=== PATIENT | female | born 1940 | race Caucasian/White ===

== ENCOUNTER → 2016-09-15 | Outpatient (CLI) | payer MEDICARE ==
[~2016-09-15] MED LIST: /LOR25TA PO; ALEN35TA PO; AMLO2.5T PO; ASPI81TA83 PO; BENI20TA11 PO; CALCCHW12 PO; CALTCHW4 PO; CRES5TAB PO; DOXA2TAB PO; DYAZ37.5 PO; FERR325T PO; FISH1000 PO; FLAXOIL3 PO; FURO20TA2 PO; GLIM1TAB PO; GLUC1000 PO; HYDR10TA2 PO; HYDR50TA7 OR; INVO100T PO; KLOR10TA PO; LASI20TA OR; LISI2.5T3 PO; LOPR100T PO; MAGN250T OR; NORT10CA2 PO; OMEP20TA7 PO; PAXI10TA PO; PRAV20TA2 PO; PROBCAP4 PO; SING10TA31 OR; TIZA2CAP3 PO; ULTR50TA PO; VICT18IN SC; VIT D 4000 PO; VITA400C PO; VITA500C PO; VITA500T53 PO; tribenzor PO
--- NOTE | 2016-09-24 00:26 | ECWPNPC ---
PATIENT NAME: ADELAIDA ATWOOD : 1940 GENDER: FEMALE VISIT DATE: 09/15/2016 DISCHARGE DATE: 09/15/16 1054 VISIT LOCKED DATE TIME: PHYSICIAN: ARTHUR LEVY RESOURCE: ARTHUR LEVY REASON FOR APPOINTMENT 1. LOWER BACK HISTORY OF PRESENT ILLNESS HISTORY OF PRESENT ILLNESS: PAIN THE PATIENT DESCRIBES THE PAIN... FALL RISK SCREENING: SCREENING :NO FALLS IN THE PAST YEAR TODAY'S VISIT: NOTES: RATES PAIN TODAY 5-6/10. NOTES PAIN IS CENTERED IN LOW BACK WITH RADIATION TO BOTH BUTTUCKS AND TO MID THIGHS. DID NOT TOLERATE DICLOFENAC AND WENT BACK TO MELOXICAM. COMPLETED UPDATED MRI OF LUMBAR SPINE.PAIN RADIATES TO HIPS WITH MOVEMENT. HARD TO GET STARTED WHEN WALKING. HARD TO STAND FOR PROLONGED PERIOD. . CURRENT MEDICATIONS TAKING GLIMEPIRIDE 4 MG TABLET ORAL BID TAKING METOPROLOL TARTRATE 100 MG SEMI-ELECTRIC WITH ORAL BID TAKING VICTOZA 18 MG/3ML SOLUTION PEN-INJECTOR 1.8 SUBCUTANEOUS DAILY TAKING TRIBENZOR 40-10-25 MG TABLET ORAL DAILY TAKING PRAVASTATIN SODIUM 40 MG TABLET ORAL DAILY TAKING FUROSEMIDE 20 MG TABLET ORAL DAILY TAKING NORTRIPTYLINE HCL 10 MG CAPSULE ORAL AT BEDTIME TAKING HYDRALAZINE HCL 10 MG TABLET ORAL DAILY TAKING METFORMIN HCL 1000 MG TABLET BREAKFAST AND DINNER ORALLY BID TAKING POTASSIUM CHLORIDE ER 10 MEQ TABLET EXTENDED RELEASE ORAL TWICE A DAY TAKING CALTRATE 600+D SOFT 600-800 MG-UNIT TABLET CHEWABLE ORALLY BID TAKING VITAMIN C 500 MG CAPSULE ORALLY DAILY TAKING VITAMIN B 12 500 MCG LOZENGE 2 LOZENGES ORALLY ONCE A DAY TAKING VITAMIN D-3 2000 CAPSULE 2 CAPSULE ORALLY TWICE DAILY TAKING FLAX SEEDS 500 MG ORALLY BID TAKING VITAMIN E 400 UNIT CAPSULE 1 CAPSULE ORALLY ONCE A DAY TAKING ASPIR-81 81 MG TABLET DELAYED RELEASE 1 TABLET ORALLY ONCE A DAY TAKING ALENDRONATE SODIUM 35 MG TABLET 1 TABLET ORALLY MONDAY ONLY TAKING PAROXETINE HCL 10 MG TABLET 1 TABLET IN THE MORNING ORALLY ONCE A DAY TAKING VISION FORMULA/LUTEIN TABLET ORALLY TWICE DAILY TAKING TRAMADOL HCL 50 MG TABLET 1 TABLET NEEDED ORALLY EVERY 6 HRS PRN PAIN MDD=3 TAKING PRILOSEC 20MG 20MG TABLET ORAL TWICE DAILY TAKING FISH OIL 1200 MG CAPSULE 1 CAPSULE ORALLY ONCE A DAY TAKING BACLOFEN 10 MG TABLET 1/2 -1 TABLET ORALLY 3X/DAY NEEDED TAKING MELOXICAM 7.5 MG TABLET 1 TABLET ORALLY ONCE A DAY NOT-TAKING DICLOFENAC SODIUM 50 MG TABLET DELAYED RELEASE 1 TABLET WITH FOOD OR MILK ORALLY BID WITH FOOD NOT-TAKING FLUTICASONE PROPIONATE 50 MCG/ACT SUSPENSION NASAL NEEDED, NOTES: 2 WEEKS MEDICATION LIST REVIEWED AND RECONCILED WITH THE PATIENT PAST MEDICAL HISTORY BRONCHIATUS HTN 2 CARDIAC CATHS PNEUMONIA HOME CPAP USE GERD CATARACT SURGURY BOTH EYES ANEMIA DIABETES DIVERTICULITIS ALLERGIES PENICILLIN (FOR ALLERGIES USE ONLY): RASH SULFA (FOR ALLERGY USE ONLY): HOT RASH LATEX: ITCH IVP DYE: FROM YEARS AGO /GAVE RASH ERYTHROMYCIN: RASH LISINOPRIL: COUGH: SIDE EFFECTS SOCIAL HISTORY GENERAL: TOBACCO USE ARE YOU A:NONSMOKER LEARNING BARRIERS / SPECIAL NEEDS ORIENTED TO PLAN OF CARE: PATIENT, PAIN MANAGEMENT PATIENT, ORIENTED TO PLAN OF CARE: PATIENT, PAIN MANAGEMENT PATIENT. NEW PATIENT PAIN DIARY TODAY'S VISITNOTES FROM 0-10, WHAT LEVEL IS YOUR PAIN TODAY?0 PAIN CLINIC PFS, CLERGY, PUBLIC HEALTH REFERRALS PFS REFERRAL NEEDED?NO CLERGY REFERRAL NEEDED?NO PUBLIC HEALTH REFERRAL NEEDED?NO WAS THE PROVIDER NOTIFIED OF ANY PERTINENT INFO?NO PFS REFERRAL NEEDED?NO CLERGY REFERRAL NEEDED?NO PUBLIC HEALTH REFERRAL NEEDED?NO WAS THE PROVIDER NOTIFIED OF ANY PERTINENT INFO?NO REVIEW OF SYSTEMS CONSTITUTIONAL: ANY CHANGE IN YOUR MEDICAL CONDITION? NO . CHILLS NO . FEVER NO . INFECTION: DO YOU HAVE NEW INFECTIONS? NO . DO YOU HAVE HISTORY OF MRSA? NO . MUSCULOSKELETAL: ANY NEW PATTERNS OF PAIN OR NUMBNESS? NO . GASTROENTEROLOGY: ANY NEW CHANGE IN BOWEL CONTROL? NO . ACID REFLUX YES - ON MEDS . GENITOURINARY: ANY NEW CHANGE IN BLADDER CONTROL? NO . IS THERE A CHANCE YOU COULD BE ? NO . HEMATOLOGY/LYMPH: DO YOU TAKE ANY BLOOD THINNERS? (FOR EXAMPLE- COUMADIN, PLAVIX, AGGRENOX, PLATEL, PRADAXA, OR XARELTO) NO . WHEN WAS YOUR LAST DOSE? DATE: TIME: . NEUROLOGY: HAVE YOU FALLEN IN THE PAST 6 MONTHS? NO . ANY NEW EXTREMITY NUMBNESS OR WEAKNESS? NO . CARDIOLOGY: DO YOU HAVE A PACEMAKER OR DEFIBRILLATOR? NO . RESPIRATORY: HAVE YOU BEEN SICK IN THE PAST WEEK? NO . FEVER NO . FLU LIKE SYMPTOMS? NO . COUGH NO . INTEGUMENTARY: DO YOU HAVE ANY RASHES OR OPEN SORES? NO . ALLERGIC/IMMUNO: ARE YOU ALLERGIC TO SHELLFISH OR IV DYE? NO . ANY NEW ALLERGIES? NO . PSYCHIATRIC: DO YOU HAVE THOUGHTS OF HURTING YOURSELF OR SOMEONE ELSE? NO . ARE YOU ABUSED, NEGLECTED, OR IN AN UNSAFE ENVIRONMENT? NO . ENDOCRINOLOGY: ARE YOU DIABETIC? YES - BLOOD SUGARS STABLE . OTHER: DO YOU NEED ANY PRESCRIPTIONS? NO . IF YES, PLEASE LIST: ____ . ANY NEW PROBLEMS WITH YOUR MEDICATIONS? NO . WHEN DID YOU LAST EAT? ____ . WHEN DID YOU LAST DRINK? ____ . WHAT DID YOU LAST DRINK? ____ . NAME OF PERSON DRIVING YOU HOME? ____ . DO YOU HAVE ANY OTHER QUESTIONS OR CONCERNS NO . REVIEWED BY: PROVIDER: ARTHUR ROMERO . VITAL SIGNS WT 179 LBS, HT 60 IN, BMI 34.95 INDEX, BP 155/86 MM HG, HR 94 /MIN, RR 16 /MIN, TEMP 98.7 F, OXYGEN SAT % 97%, NA INITIALS SC 10:14. EXAMINATION GENERAL EXAMINATION: PSYCHALERT , ORIENTED X 3 , APPROPRIATE MOOD AND AFFECT . LUNGS:CLEAR TO AUSCULTATION BILATERALLY. HEART:HEART RATE REGULAR. MUSCULOSKELETAL:MUSCLE STRENGTH TESTING 5/5 BILATERAL LOWER EXTREMITIES., PALPATION: POSITIVE FOR PAIN OVER L/S SPINOUS PROCESSES AND ACROSS THE LUMBOSACRAL EXIS. TENERNESS IS NOTED WITH PALPATION OVER LUMBAR PARAVERTEBRAL MUSCLES AND LUMBAR FACET JOINTS. PAIN INCREASES WITH BACK EXTENSION. WE'LL TO RISE TO A STANDING POSITION. POSTURE IS UPRIGHT GAIT IS WIDE-BASED BUT NONANTALGIC. . DIAGNOSTIC TESTS REVIEWEDMRI OF THE LUMBAR SPINE WAS COMPLETED ON 08/30/2016. WAS COMPARED TO AN MRI OF THE SAME AREA COMPLETED ON 01/07/2016. THIS DID DEMONSTRATE DEGENERATIVE SPONDYLOSIS CHANGES. FINDINGS WERE UNCHANGED EXCEPT AT L4-5 ON THE RIGHT WITH THERE APPEARS TO BE MORE FACET HYPERTROPHY INDENTING THE RIGHT THECAL LATERAL MARGIN OF THE THECAL SAC. THERE IS MILD DIFFUSE DISC BULGES SEEN AT THIS LEVEL. THERE IS MILD CENTRAL CANAL STENOSIS AT L4-5.. ASSESSMENTS SACROILIITIS, NOT ELSEWHERE CLASSIFIED - M46.1 (PRIMARY) MYALGIA - M79.1 (PRIMARY) SPONDYLOSIS OF LUMBOSACRAL REGION WITHOUT MYELOPATHY OR RADICULOPATHY - M47.817 (PRIMARY) TREATMENT SACROILIITIS, NOT ELSEWHERE CLASSIFIED INJECTION FACET JOINT/NERVE LUMBAR/SACRALARTHUR LEVY 09/15/2016 10:40:47 AM > BILATERAL THERAPEUTIC NOTES: HOLD DIABETES MEDS AM OF PROCEDURE, FALLS CARE PLAN: 1. RECOMMEND REMOVING ALL THROW RUGS. 2. RECOMMEND NIGHT LIGHTS 3. RECOMMEND WEARING RUBBER SOLED SHOES AND TO NOT GO BAREFOOT. 4.. ADVISED TO CHANGE POSITION SLOWLY FROM SUPINE TO STANDING TO AVOID DIZZINESS. [facility] REASON:INCREASING LOW BACK PAIN. HAS NEW MRI PROCEDURE CODES FA211 ESTABILISHED PATIENT [facility] FACILITY CHARGE G8783 BP SCR PRFRM RCMDD DEFIND SCR INTVL G8730 PAIN ASSESS POS TOOL F/U PLAN DOC 3016F PT SCRND UNHLTHY [place] USE 1123F ACP DISCUSS/DSCN MKR DOCD 1036F TOBACCO NON-USER 0518F FALL PLAN OF CARE DOCD G8420 BMI<30 AND >=22 CALC & DOCU 3288F FALL RISK ASSESSMENT DOCD FOLLOW UP AFTER INJECTION (REASON: CHECK AUTH FOR MARI THERAPEUTIC LUMBAR FACETS) ELECTRONICALLY SIGNED BY EUSEBIO CARROLL ON 09/23/2016 AT 10:54 AM EST DISCLAIMER : THIS IS A VISIT SUMMARY EXTRACTED FROM THE [employer] CHART. IT IS NOT A COPY OF THE [employer] PROGRESS NOTE. MARLINE
== END ==
LOC: M PAIN 10:20
PROVIDERS: ATTEND Nurse Practitioner Family
DX: Z09 Encounter for follow-up examination after completed treatment for conditions other than malignant neoplasm (principal); M46.1 Sacroiliitis, not elsewhere classified; M79.1 Myalgia; M47.817 Spondylosis without myelopathy or radiculopathy, lumbosacral region; I10 Essential (primary) hypertension; K21.9 Gastro-esophageal reflux disease without esophagitis; E11.9 Type 2 diabetes mellitus without complications; D64.9 Anemia, unspecified; Z88.0 Allergy status to penicillin; Z88.2 Allergy status to sulfonamides; Z91.040 Latex allergy status; Z88.8 Allergy status to other drugs, medicaments and biological substances; Z79.84 Long term (current) use of oral hypoglycemic drugs; Z79.82 Long term (current) use of aspirin; Z79.891 Long term (current) use of opiate analgesic; Z79.899 Other long term (current) drug therapy; Z98.41 Cataract extraction status, right eye; Z98.42 Cataract extraction status, left eye; Z86.79 Personal history of other diseases of the circulatory system

== ENCOUNTER → 2017-04-24 | Outpatient (CLI) | payer MEDICARE ==
--- NOTE | 2017-05-07 23:22 | ECWPNPC ---
PATIENT NAME: ADELAIDA ATWOOD : 1940 GENDER: FEMALE VISIT DATE: 04/24/2017 DISCHARGE DATE: 04/24/17 1105 VISIT LOCKED DATE TIME: PHYSICIAN: ARTHUR LEVY RESOURCE: ARTHUR LEVY REASON FOR APPOINTMENT 1. F/U BACK PAIN HISTORY OF PRESENT ILLNESS HISTORY OF PRESENT ILLNESS: PAIN THE PATIENT DESCRIBES THE PAIN... FALL RISK SCREENING: SCREENING :NO FALLS IN THE PAST YEAR TODAY'S VISIT: NOTES: FIRST CLINIC VISIT SINCE SEP 2015. HAS BEEN SEEN AT [facility] AND THEN [facility] WHO STARTED HER WITH A SHOE LIFT WHICH SHE HAS FOUND HELPFUL. RATES PAIN TODAY 5-6/10. DESCRIBES PAIN CONSTANT, BURNING, SHARP AND TENDER. HAD RECENT PELVIC MRI AND WE ARE OBTAINING THE RESULTS. NOTES PAIN IS ACROSS THE LOW BACK WITH RADIATION TO RIGHT BUTTUCK AND HIP REGION. PAIN INCREASES WITH PROLONGED SITTING. IS CURRENTLY IN PHYSICAL THERAPY. THEY ARE WORKING ON PIRIFORMIS STRETCHES. WAS ON A PREDNISONE TAPER. NOW HAS 09/07&QUOT; LIFT IN LEFT SHOE. . CURRENT MEDICATIONS TAKING GLIMEPIRIDE 4 MG TABLET ORAL BID TAKING METOPROLOL TARTRATE 100 MG SEMI-ELECTRIC WITH ORAL BID TAKING VICTOZA 18 MG/3ML SOLUTION PEN-INJECTOR 1.8 SUBCUTANEOUS DAILY TAKING TRIBENZOR 40-10-25 MG TABLET ORAL DAILY TAKING PRAVASTATIN SODIUM 40 MG TABLET ORAL DAILY TAKING FUROSEMIDE 20 MG TABLET ORAL DAILY TAKING NORTRIPTYLINE HCL 10 MG CAPSULE ORAL AT BEDTIME TAKING HYDRALAZINE HCL 10 MG TABLET ORAL DAILY TAKING METFORMIN HCL 1000 MG TABLET BREAKFAST AND DINNER ORALLY BID TAKING POTASSIUM CHLORIDE ER 10 MEQ TABLET EXTENDED RELEASE ORAL TWICE A DAY TAKING CALTRATE 600+D SOFT 600-800 MG-UNIT TABLET CHEWABLE ORALLY BID TAKING VITAMIN C 500 MG CAPSULE ORALLY DAILY TAKING VITAMIN B 12 500 MCG LOZENGE 2 LOZENGES ORALLY ONCE A DAY TAKING VITAMIN D-3 2000 CAPSULE 2 CAPSULE ORALLY TWICE DAILY TAKING FLAX SEEDS 500 MG ORALLY BID TAKING VITAMIN E 400 UNIT CAPSULE 1 CAPSULE ORALLY ONCE A DAY TAKING ASPIR-81 81 MG TABLET DELAYED RELEASE 1 TABLET ORALLY ONCE A DAY TAKING ALENDRONATE SODIUM 35 MG TABLET 1 TABLET ORALLY MONDAY ONLY TAKING PAROXETINE HCL 10 MG TABLET 1 TABLET IN THE MORNING ORALLY ONCE A DAY TAKING VISION FORMULA/LUTEIN TABLET ORALLY TWICE DAILY TAKING TRAMADOL HCL 50 MG TABLET 1 TABLET NEEDED ORALLY EVERY 6 HRS PRN PAIN MDD=3 TAKING PRILOSEC 20MG 20MG TABLET ORAL TWICE DAILY TAKING FISH OIL 1200 MG CAPSULE 1 CAPSULE ORALLY ONCE A DAY TAKING BACLOFEN 10 MG TABLET 1/2 -1 TABLET ORALLY 3X/DAY NEEDED TAKING MELOXICAM 7.5 MG TABLET 1 TABLET ORALLY ONCE A DAY NOT-TAKING DICLOFENAC SODIUM 50 MG TABLET DELAYED RELEASE 1 TABLET WITH FOOD OR MILK ORALLY BID WITH FOOD NOT-TAKING FLUTICASONE PROPIONATE 50 MCG/ACT SUSPENSION NASAL NEEDED, NOTES: 2 WEEKS MEDICATION LIST REVIEWED AND RECONCILED WITH THE PATIENT PAST MEDICAL HISTORY BRONCHIATUS HTN 2 CARDIAC CATHS PNEUMONIA HOME CPAP USE GERD CATARACT SURGURY BOTH EYES ANEMIA DIABETES DIVERTICULITIS ALLERGIES PENICILLIN (FOR ALLERGIES USE ONLY): RASH SULFA (FOR ALLERGY USE ONLY): HOT RASH LATEX: ITCH IVP DYE: FROM YEARS AGO /GAVE RASH ERYTHROMYCIN: RASH LISINOPRIL: COUGH: SIDE EFFECTS REVIEW OF SYSTEMS REVIEWED BY: PROVIDER: ARTHUR ROMERO . CONSTITUTIONAL: ANY CHANGE IN YOUR MEDICAL CONDITION? ORTHOPEDIC PUT LIFT IN SHOE AND HAS HER DOING THERAPY . CHILLS NO . FEVER NO . INFECTION: DO YOU HAVE NEW INFECTIONS? NO . DO YOU HAVE HISTORY OF MRSA? NO . MUSCULOSKELETAL: ANY NEW PATTERNS OF PAIN OR NUMBNESS? NO . GASTROENTEROLOGY: ANY NEW CHANGE IN BOWEL CONTROL? NO . GENITOURINARY: ANY NEW CHANGE IN BLADDER CONTROL? NO . IS THERE A CHANCE YOU COULD BE ? NO . HEMATOLOGY/LYMPH: DO YOU TAKE ANY BLOOD THINNERS? (FOR EXAMPLE- COUMADIN, PLAVIX, AGGRENOX, PLATEL, PRADAXA, OR XARELTO) NO . WHEN WAS YOUR LAST DOSE? DATE: TIME: . NEUROLOGY: HAVE YOU FALLEN IN THE PAST 6 MONTHS? NO . ANY NEW EXTREMITY NUMBNESS OR WEAKNESS? NO . CARDIOLOGY: DO YOU HAVE A PACEMAKER OR DEFIBRILLATOR? NO . RESPIRATORY: HAVE YOU BEEN SICK IN THE PAST WEEK? NO . FEVER NO . FLU LIKE SYMPTOMS? NO . COUGH NO . INTEGUMENTARY: DO YOU HAVE ANY RASHES OR OPEN SORES? NO . ALLERGIC/IMMUNO: ARE YOU ALLERGIC TO SHELLFISH OR IV DYE? NO . ANY NEW ALLERGIES? NO . PSYCHIATRIC: DO YOU HAVE THOUGHTS OF HURTING YOURSELF OR SOMEONE ELSE? NO . ARE YOU ABUSED, NEGLECTED, OR IN AN UNSAFE ENVIRONMENT? NO . ENDOCRINOLOGY: ARE YOU DIABETIC? YES . OTHER: DO YOU NEED ANY PRESCRIPTIONS? NO . IF YES, PLEASE LIST: ____ . ANY NEW PROBLEMS WITH YOUR MEDICATIONS? NO . WHEN DID YOU LAST EAT? ____ . WHEN DID YOU LAST DRINK? ____ . WHAT DID YOU LAST DRINK? ____ . NAME OF PERSON DRIVING YOU HOME? ____ . DO YOU HAVE ANY OTHER QUESTIONS OR CONCERNS NO . HEENT: GENERAL IS HAVING LOWER TEETH REMOVED IN NEAR FUTURE . VITAL SIGNS WT 177.6 LBS, HT 60 IN, BMI 34.68 INDEX, BP 144/68 MM HG, HR 88 /MIN, RR 16 /MIN, TEMP 99.0 F, OXYGEN SAT % 97%, NA INITIALS SC 10:19. EXAMINATION GENERAL EXAMINATION: PSYCHALERT , ORIENTED X 3 , APPROPRIATE MOOD AND AFFECT . LUNGS:CLEAR TO AUSCULTATION BILATERALLY. HEART:HEART RATE REGULAR. MUSCULOSKELETAL:MUSCLE STRENGTH TESTING 5/5 BILATERAL LOWER EXTREMITIES., PALPATION: POSITIVE FOR PAIN OVER L/S SPINOUS PROCESSES AND ACROSS THE LUMBOSACRAL AXIS POINT TENDERNESS OVER BILATERAL SACRAL ILIAC JOINTS. PAIN INCREASES WITH BACK EXTENSION. POSTURE IS UPRIGHT GAIT IS WIDE-BASED BUT NONANTALGIC. . DIAGNOSTIC TESTS REVIEWEDMRI OF BILATRAL SACRAL ILIAC JOINTS COMPLETED ON 03/04/17 DEMONSTRATES MILD FLUID IN BILATERAL SACRALILIAC JOINTS RIGHT SIDE MORE PROMINENT THAN LEFT.. 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 PREVENTIVE MEDICINE DISCUSSED SIJ AND PRE PROCEDURE CARE AND GAVE INFO / PT EXPRESSED UNDERSTANDING. PROCEDURE CODES FA211 ESTABILISHED PATIENT [facility] FACILITY CHARGE G8730 PAIN ASSESS POS TOOL F/U PLAN DOC G8427 DOC MEDS VERIFIED W/PT OR RE DISPOSITION & COMMUNICATION FOLLOW UP AFTER INJECTION (REASON: CHECK AUTH FOR BILATERAL SIJ) ELECTRONICALLY SIGNED BY EUSEBIO CARROLL ON 05/07/2017 AT 12:41 PM EDT DISCLAIMER : THIS IS A VISIT SUMMARY EXTRACTED FROM THE [employer] CHART. IT IS NOT A COPY OF THE [employer] PROGRESS NOTE. MARLINE
== END | disposition home or self-care (01) ==
LOC: M PAIN 10:30
PROVIDERS: ATTEND Nurse Practitioner Family
DX: G89.29 Other chronic pain (principal); M46.1 Sacroiliitis, not elsewhere classified; M79.1 Myalgia; G57.00 Lesion of sciatic nerve, unspecified lower limb; I10 Essential (primary) hypertension; K21.9 Gastro-esophageal reflux disease without esophagitis; D64.9 Anemia, unspecified; E11.9 Type 2 diabetes mellitus without complications; Z87.19 Personal history of other diseases of the digestive system; Z88.0 Allergy status to penicillin; Z88.2 Allergy status to sulfonamides; Z88.8 Allergy status to other drugs, medicaments and biological substances; Z91.040 Latex allergy status; Z91.041 Radiographic dye allergy status; Z79.899 Other long term (current) drug therapy; Z79.84 Long term (current) use of oral hypoglycemic drugs; Z79.82 Long term (current) use of aspirin

== ENCOUNTER → 2017-05-11 | Outpatient (CLI) | payer MEDICARE ==
[~2017-05-11] MED LIST changes: +BUPIVACAINE HCL 0.25% 30 ML VIAL As Ordered ONE; +ISOVUE-M 300 61% 15ML VIAL (Q9967) As Ordered ONE; +LIDOCAINE 1% SDV INJ 30 ML VIAL As Ordered ONE; +TRIAMCINOLONE ACETONIDE SUSP 40 MG/ML VIAL (J3301) As Ordered ONE
--- NOTE | 2017-05-11 11:09 | REP ---
BILATERAL SI JOINT SERIES: Limited study two views. HISTORY: Bilateral SI joint injection for pain. 23 seconds of fluoroscopy time is reported. FINDINGS: A sequence of two last image hold fluoroscopic spot radiographs of the SI joints document needle position and contrast injection associated with SI joint injection procedure. Signed by Adonis Hurtado MD 05/11/2017 02:43 P
--- NOTE | 2017-05-12 00:21 | ECWPNPC ---
PATIENT NAME: ADELADIA ATWOOD : 1940 GENDER: FEMALE VISIT DATE: 05/11/2017 DISCHARGE DATE: 05/11/17 1042 VISIT LOCKED DATE TIME: PHYSICIAN: MICHELLE BELTRAN RESOURCE: MICHELLE BELTRAN REASON FOR APPOINTMENT 1. BILATERAL SIJ HISTORY OF PRESENT ILLNESS HISTORY OF PRESENT ILLNESS: PAIN THE PATIENT DESCRIBES THE PAIN... FALL RISK SCREENING: SCREENING :NO FALLS IN THE PAST YEAR CURRENT MEDICATIONS TAKING GLIMEPIRIDE 4 MG TABLET ORAL BID, NOTES: 05/10/17@1700 TAKING METOPROLOL TARTRATE 100 MG SEMI-ELECTRIC WITH ORAL BID, NOTES: 0600 TAKING VICTOZA 18 MG/3ML SOLUTION PEN-INJECTOR 1.8 SUBCUTANEOUS DAILY, NOTES: 05/10/17@1100 TAKING TRIBENZOR 40-10-25 MG TABLET ORAL DAILY, NOTES: 0600 TAKING PRAVASTATIN SODIUM 40 MG TABLET ORAL DAILY, NOTES: 05/10/17@2000 TAKING FUROSEMIDE 20 MG TABLET ORAL DAILY, NOTES: 05/10/17@0700 TAKING NORTRIPTYLINE HCL 10 MG CAPSULE ORAL AT BEDTIME, NOTES: 05/10/17@2099 TAKING HYDRALAZINE HCL 10 MG TABLET ORAL DAILY, NOTES: 0600 TAKING METFORMIN HCL 1000 MG TABLET BREAKFAST AND DINNER ORALLY BID, NOTES: 05/10/17@1700 TAKING POTASSIUM CHLORIDE ER 10 MEQ TABLET EXTENDED RELEASE ORAL TWICE A DAY, NOTES: 0600 TAKING CALTRATE 600+D SOFT 600-800 MG-UNIT TABLET CHEWABLE ORALLY BID, NOTES: 2 WEEKS AGO TAKING VITAMIN C 500 MG CAPSULE ORALLY DAILY, NOTES: 05/10/17@1199 TAKING VITAMIN B 12 500 MCG LOZENGE 2 LOZENGES ORALLY ONCE A DAY, NOTES: 05/10/12@1199 TAKING VITAMIN D-3 2000 CAPSULE 2 CAPSULE ORALLY TWICE DAILY, NOTES: 05/10/17@2099 TAKING FLAX SEEDS 500 MG ORALLY BID, NOTES: 05/10/17 TAKING VITAMIN E 400 UNIT CAPSULE 1 CAPSULE ORALLY ONCE A DAY, NOTES: 05/10/17 TAKING ASPIR-81 81 MG TABLET DELAYED RELEASE 1 TABLET ORALLY ONCE A DAY, NOTES: 05/10/17@2100 TAKING ALENDRONATE SODIUM 35 MG TABLET 1 TABLET ORALLY MONDAY ONLY, NOTES: 05/07/17@0800 TAKING PAROXETINE HCL 10 MG TABLET 1 TABLET IN THE MORNING ORALLY ONCE A DAY, NOTES: 0600 TAKING VISION FORMULA/LUTEIN TABLET ORALLY TWICE DAILY, NOTES: 05/10/17@2100 TAKING TRAMADOL HCL 50 MG TABLET 1 TABLET NEEDED ORALLY EVERY 6 HRS PRN PAIN MDD=3, NOTES: 2 WEEKS AGO TAKING PRILOSEC 20MG 20MG TABLET ORAL TWICE DAILY, NOTES: 0600 TAKING FISH OIL 1200 MG CAPSULE 1 CAPSULE ORALLY ONCE A DAY, NOTES: 05/10/17@1200 TAKING BACLOFEN 10 MG TABLET 1/2 -1 TABLET ORALLY 3X/DAY NEEDED, NOTES: 05/10/17@1000 TAKING MELOXICAM 7.5 MG TABLET 1 TABLET ORALLY ONCE A DAY, NOTES: 05/10/17@1200 NOT-TAKING DICLOFENAC SODIUM 50 MG TABLET DELAYED RELEASE 1 TABLET WITH FOOD OR MILK ORALLY BID WITH FOOD NOT-TAKING FLUTICASONE PROPIONATE 50 MCG/ACT SUSPENSION NASAL NEEDED, NOTES: 2 WEEKS MEDICATION LIST REVIEWED AND RECONCILED WITH THE PATIENT PAST MEDICAL HISTORY BRONCHIATUS HTN 2 CARDIAC CATHS PNEUMONIA HOME CPAP USE GERD CATARACT SURGURY BOTH EYES ANEMIA DIABETES DIVERTICULITIS ALLERGIES PENICILLIN (FOR ALLERGIES USE ONLY): RASH SULFA (FOR ALLERGY USE ONLY): HOT RASH LATEX: ITCH IVP DYE: FROM YEARS AGO /GAVE RASH ERYTHROMYCIN: RASH LISINOPRIL: COUGH: SIDE EFFECTS SOCIAL HISTORY GENERAL: TOBACCO USE ARE YOU A:NONSMOKER LEARNING BARRIERS / SPECIAL NEEDS ORIENTED TO PLAN OF CARE: PATIENT, PAIN MANAGEMENT PATIENT, ORIENTED TO PLAN OF CARE: PATIENT, PAIN MANAGEMENT PATIENT. NEW PATIENT PAIN DIARY TODAY'S VISITNOTES FROM 0-10, WHAT LEVEL IS YOUR PAIN TODAY?0 PAIN CLINIC PFS, CLERGY, PUBLIC HEALTH REFERRALS PFS REFERRAL NEEDED?NO CLERGY REFERRAL NEEDED?NO PUBLIC HEALTH REFERRAL NEEDED?NO WAS THE PROVIDER NOTIFIED OF ANY PERTINENT INFO?NO HAS THE PATIENT BEEN EDUCATED REGARDING HIS/HER PLAN OF CARE?YES HAS THE PATIENT BEEN EDUCATED REGARDING PAIN, THE RISK FOR PAIN, THE IMPORTANCE OF EFFECTIVE PAIN MANAGEMENT, AND THE PAIN ASSESSMENT PROCESS?YES REVIEW OF SYSTEMS REVIEWED BY: PROVIDER: . CONSTITUTIONAL: ANY CHANGE IN YOUR MEDICAL CONDITION? NO . CHILLS NO . FEVER NO . INFECTION: DO YOU HAVE NEW INFECTIONS? NO . DO YOU HAVE HISTORY OF MRSA? NO . MUSCULOSKELETAL: ANY NEW PATTERNS OF PAIN OR NUMBNESS? NO . GASTROENTEROLOGY: ANY NEW CHANGE IN BOWEL CONTROL? NO . GENITOURINARY: ANY NEW CHANGE IN BLADDER CONTROL? NO . IS THERE A CHANCE YOU COULD BE ? NO . HEMATOLOGY/LYMPH: DO YOU TAKE ANY BLOOD THINNERS? (FOR EXAMPLE- COUMADIN, PLAVIX, AGGRENOX, PLATEL, PRADAXA, OR XARELTO) NO . WHEN WAS YOUR LAST DOSE? DATE: TIME: . NEUROLOGY: HAVE YOU FALLEN IN THE PAST 6 MONTHS? NO . ANY NEW EXTREMITY NUMBNESS OR WEAKNESS? NO . CARDIOLOGY: DO YOU HAVE A PACEMAKER OR DEFIBRILLATOR? NO . RESPIRATORY: HAVE YOU BEEN SICK IN THE PAST WEEK? NO . FEVER NO . FLU LIKE SYMPTOMS? NO . COUGH NO . INTEGUMENTARY: DO YOU HAVE ANY RASHES OR OPEN SORES? NO . ALLERGIC/IMMUNO: ARE YOU ALLERGIC TO SHELLFISH OR IV DYE? NO . ANY NEW ALLERGIES? NO . PSYCHIATRIC: DO YOU HAVE THOUGHTS OF HURTING YOURSELF OR SOMEONE ELSE? NO . ARE YOU ABUSED, NEGLECTED, OR IN AN UNSAFE ENVIRONMENT? NO . ENDOCRINOLOGY: ARE YOU DIABETIC? YES . OTHER: DO YOU NEED ANY PRESCRIPTIONS? NO . IF YES, PLEASE LIST: ____ . ANY NEW PROBLEMS WITH YOUR MEDICATIONS? NO . WHEN DID YOU LAST EAT? ____05/10/17 . WHEN DID YOU LAST DRINK? ____06 . WHAT DID YOU LAST DRINK? ____GINGERALE . NAME OF PERSON DRIVING YOU HOME? ____JERRY . DO YOU HAVE ANY OTHER QUESTIONS OR CONCERNS NO . VITAL SIGNS WT 177.6 LBS, HT 60 IN, BMI 34.68 INDEX, BP 138/70 MM HG, HR 80 /MIN, RR 16 /MIN, TEMP 98.4 F, OXYGEN SAT % 98%, BLOOD GLUCOSE LEVEL 137, NA INITIALS SC 09:17, REVIEWED BY: NENA. ASSESSMENTS SACROILIITIS, NOT ELSEWHERE CLASSIFIED - M46.1 (PRIMARY) PROCEDURES PN SI PRE PROCEDURE DIAGNOSIS SACROILIITIS, SACROILIAC JOINT DYSFUNCTION POST PROCEDURE DIAGNOSIS SACROILIITIS, SACROILIAC JOINT DYSFUNCTION PROCEDURE BILATERAL SACROILIAC JOINT BLOCK SURGEON DR. MICHELLE BELTRAN PLATE HANGER NONE ANESTHESIA LOCAL PRE PROCEDURE NOTE PATIENT WITH HISTORY OF CHRONIC LOW BACK PAIN. I EVALUATED THE PATIENT AND REVIEWED THE CHART. I WENT OVER THE RISKS, ALTERNATIVES, AND BENEFITS ASSOCIATED WITH THIS PROCEDURE. THE PATIENT WOULD LIKE TO PROCEED AND GAVE CONSENT TO PERFORM THE PROCEDURE. THE PATIENT DENIES UNEXPLAINABLE WEIGHT LOSS, FEVER, CHILLS, OR NEW CHANGES IN URINARY OR BOWEL CONTROL DESCRIPTION OF PROCEDURE THE PATIENT WAS BROUGHT TO THE PROCEDURE ROOM AND PLACED IN THE PRONE POSITION. THE LUMBOSACRAL AREA WAS CLEANED WITH CHLORAPREP SOLUTION AND DRAPED ASEPTICALLY. THE PROCEDURE WAS DONE UNDER STERILE CONDITIONS. I CHECKED LATERALITY AND THE LEVEL WHERE THE PROCEDURE WAS GOING TO BE PERFORMED WITH THE PATIENT AND THE SUPPORTING STAFF AT THE MOMENT OF THE TIME OUT IN THE PROCEDURE ROOM. UNDER FLUOROSCOPIC GUIDANCE, TARGET POINT WAS SELECTED AT THE LOWER BORDER OF THE RIGHT AND LEFT SACROILIAC JOINT. TARGET POINT WAS SELECTED AFTER MEDIAL ROTATION AND TILT OF THE MAGNIFIER OF THE C-ARM. LIDOCAINE WAS USED TO NUMB THE SKIN AND SUBCUTANEOUS TISSUE BELOW IT. A SPINAL NEEDLE, 22-GAUGE, WAS ADVANCED UNDER FLUOROSCOPIC GUIDANCE AND FOLLOWING PATIENT FEEDBACK UNTIL THE TARGET AREA WAS TOUCHED. THE POSITION OF THE NEEDLE WAS VERIFIED WITH AP AND LATERAL VIEWS. AFTER PROPER POSITION OF THE NEEDLE WAS ACHIEVED, ISOVUE M DYE 30%, 0.25 ML, WAS INJECTED SHOWING SPREAD OF THE DYE. THEN, A SOLUTION OF 20 MG OF KENALOG WAS INJECTED IN RIGHT JOINT WITH 3 ML OF BUPIVACAINE 0.125%. THERE WAS NO EVIDENCE OF BLOOD, PARESTHESIA OR CEREBROSPINAL FLUID DURING THE PROCEDURE. THE PATIENT WAS SENT TO THE RECOVERY ROOM. THE PATIENT WAS MOVING THE EXTREMITIES AND DOING WELL. THERE WAS NO COMPLICATION DURING THE PROCEDURE. FLUOROSCOPY TIME WAS 23 SECONDS POST PROCEDURE NOTE THE PATIENT WILL BE SEEN IN A FOLLOW UP IN THE NEXT FEW WEEKS. INSTRUCTIONS WERE GIVEN, QUESTIONS WERE ANSWERED, AND THE PATIENT EXPRESSED UNDERSTANDING AND AGREED WITH THE PLAN. I, NITESH SPEAR, DOCUMENTED THE ABOVE INFORMATION ACTING A SCRIBE FOR DR. BELTRAN. I HAVE REVIEWED THE ABOVE DOCUMENT, WRITTEN BY NITESH DAWSON AND I VERIFY THAT IT IS [facility] FLUORO GUIDANCE ([id number])[id number] PROCEDURE CODES 67636 INJECT SACROILIAC JOINT [id number] RADXPS IN END [id number] PXD DISPOSITION & COMMUNICATION FOLLOW UP 3 WEEKS ELECTRONICALLY SIGNED BY MICHELLE BELTRAN MD ON 05/11/2017 AT 05:17 PM EDT DISCLAIMER : THIS IS A VISIT SUMMARY EXTRACTED FROM THE [employer] CHART. IT IS NOT A COPY OF THE [employer] PROGRESS NOTE. MTDD
== END | disposition home or self-care (01) ==
LOC: M PAIN 09:15
PROVIDERS: ATTEND Anesthesiology
DX: G89.29 Other chronic pain (principal); M46.1 Sacroiliitis, not elsewhere classified; I10 Essential (primary) hypertension; K21.9 Gastro-esophageal reflux disease without esophagitis; D64.9 Anemia, unspecified; E11.9 Type 2 diabetes mellitus without complications; Z87.19 Personal history of other diseases of the digestive system; Z87.09 Personal history of other diseases of the respiratory system; Z79.899 Other long term (current) drug therapy; Z79.82 Long term (current) use of aspirin; Z79.84 Long term (current) use of oral hypoglycemic drugs; Z88.0 Allergy status to penicillin; Z88.2 Allergy status to sulfonamides; Z88.8 Allergy status to other drugs, medicaments and biological substances; Z91.040 Latex allergy status; Z91.041 Radiographic dye allergy status
CPT/HCPCS: G0260; J3301; Q9967

== ENCOUNTER → 2017-12-07 | Outpatient (CLI) | payer MEDICARE | LOC: M PAIN 11:00 | DX: M46.96 Unspecified inflammatory spondylopathy, lumbar region (principal); M79.1 Myalgia; G57.00 Lesion of sciatic nerve, unspecified lower limb; I10 Essential (primary) hypertension; K21.9 Gastro-esophageal reflux disease without esophagitis; E11.9 Type 2 diabetes mellitus without complications; Z79.4 Long term (current) use of insulin; Z79.82 Long term (current) use of aspirin; Z79.899 Other long term (current) drug therapy; Z88.0 Allergy status to penicillin; Z88.2 Allergy status to sulfonamides; Z88.8 Allergy status to other drugs, medicaments and biological substances; Z91.040 Latex allergy status; Z91.041 Radiographic dye allergy status | CPT/HCPCS: G0463 ==

== ENCOUNTER → 2018-08-24 | Outpatient (CLI) | payer MEDICARE ==
[~2018-08-24] MED LIST changes: -ALEN35TA PO; +ALEN35TA37 PO; -AMLO2.5T PO; +AMLO2.5T3 PO; -BUPIVACAINE HCL 0.25% 30 ML VIAL As Ordered ONE; -ISOVUE-M 300 61% 15ML VIAL (Q9967) As Ordered ONE; -LIDOCAINE 1% SDV INJ 30 ML VIAL As Ordered ONE; -LISI2.5T3 PO; +LISI2.5T5 PO; +TIZA2CAP PO; -TIZA2CAP3 PO; -TRIAMCINOLONE ACETONIDE SUSP 40 MG/ML VIAL (J3301) As Ordered ONE
--- NOTE | 2018-09-23 | ECWPNPC ---
PATIENT NAME: ADELAIDA ATWOOD : 1940 GENDER: FEMALE VISIT DATE: 08/24/2018 DISCHARGE DATE: 08/24/18 1152 VISIT LOCKED DATE TIME: PHYSICIAN: KARTHIKEYAN PENALOZA RESOURCE: KARTHIKEYAN PENALOZA REASON FOR APPOINTMENT 1. BACK HISTORY OF PRESENT ILLNESS HISTORY OF PRESENT ILLNESS: HERE FOR F/U OF CHRONIC LOW BACK PAIN.RECENT LUMBAR SURGERY WITH DR. WHITEHEAD.ATTENDING PT.HAS SIJ PAIN. RATING PAIN VAS 5/10.REPORTING INCREASE IN PAIN WITH PROLONGED STANDING OR AFTER THERAPY.DESCRIBE PAIN TENDER AND SORE. PAIN THE PATIENT DESCRIBES THE PAIN... FALL RISK SCREENING: SCREENING :NO FALLS IN THE PAST YEAR CURRENT MEDICATIONS TAKING GLIMEPIRIDE 4 MG TABLET ORAL BID, NOTES: 05/10/17@1700 TAKING METOPROLOL TARTRATE 100 MG SEMI-ELECTRIC WITH ORAL BID, NOTES: 0600 TAKING VICTOZA 18 MG/3ML SOLUTION PEN-INJECTOR 1.8 SUBCUTANEOUS DAILY, NOTES: 05/10/17@1100 TAKING TRIBENZOR 40-10-25 MG TABLET ORAL DAILY, NOTES: 0600 TAKING FUROSEMIDE 20 MG TABLET 1 1/2 TABLE ORAL DAILY, NOTES: 05/10/17@0700 TAKING HYDRALAZINE HCL 10 MG TABLET ORAL DAILY, NOTES: 0600 TAKING METFORMIN HCL 1000 MG TABLET BREAKFAST AND DINNER ORALLY BID, NOTES: 05/10/17@1700 TAKING POTASSIUM CHLORIDE ER 10 MEQ TABLET EXTENDED RELEASE 2 TABLETS WITH FOOD ORAL TID, NOTES: 0600 TAKING CALTRATE 600+D SOFT 600-800 MG-UNIT TABLET CHEWABLE ORALLY BID, NOTES: 2 WEEKS AGO TAKING VITAMIN C 500 MG CAPSULE ORALLY DAILY, NOTES: 05/10/17@1200 TAKING VITAMIN B 12 500 MCG LOZENGE 1 CAP ORALLY ONCE A DAY, NOTES: 05/10/12@1200 TAKING VITAMIN D-3 2000 CAPSULE 1 CAP ORALLY TWICE DAILY, NOTES: 05/10/17@2100 TAKING FLAX SEEDS 500 MG ORALLY BID, NOTES: 05/10/17@1200 TAKING VITAMIN E 400 UNIT CAPSULE 1 CAPSULE ORALLY ONCE A DAY, NOTES: 05/10/17@1200 TAKING ASPIR-81 81 MG TABLET DELAYED RELEASE 1 TABLET ORALLY ONCE A DAY, NOTES: 05/10/17@2100 TAKING ALENDRONATE SODIUM 35 MG TABLET 1 TABLET ORALLY MONDAY ONLY, NOTES: 05/07/17@0800 TAKING PAROXETINE HCL 10 MG TABLET 1 TABLET IN THE MORNING ORALLY ONCE A DAY, NOTES: 0600 TAKING VISION FORMULA/LUTEIN TABLET ORALLY TWICE DAILY, NOTES: 05/10/17@2100 TAKING PRILOSEC 20MG 20MG TABLET ORAL TWICE DAILY, NOTES: 0600 TAKING FISH OIL 1200 MG CAPSULE 1 CAPSULE ORALLY BID, NOTES: 05/10/17@1200 TAKING ATORVASTATIN CALCIUM 40 MG TABLET 1 TABLET ORALLY ONCE A DAY TAKING BACLOFEN 10 MG TABLET 1//2 - 1 TABLET WITH FOOD OR MILK ORALLY THREE TIMES A DAY TAKING MELOXICAM 15 MG TABLET 1 TABLET ORALLY ONCE A DAY NOT-TAKING TRAMADOL HCL 50 MG TABLET 1 TABLET NEEDED ORALLY EVERY 6 HRS PRN PAIN MDD=3, NOTES: 2 WEEKS AGO NOT-TAKING BACLOFEN 10 MG TABLET 1/2 -1 TABLET ORALLY 3X/DAY NEEDED, NOTES: DUPLICATE NOT-TAKING MELOXICAM 7.5 MG TABLET 1 TABLET ORALLY ONCE A DAY, NOTES: 05/10/17@1200 NOT-TAKING FLUTICASONE PROPIONATE 50 MCG/ACT SUSPENSION NASAL NEEDED, NOTES: 2 WEEKS MEDICATION LIST REVIEWED AND RECONCILED WITH THE PATIENT PAST MEDICAL HISTORY BRONCHIATUS HTN 2 CARDIAC CATHS PNEUMONIA HOME CPAP USE GERD CATARACT SURGURY BOTH EYES ANEMIA DIABETES DIVERTICULITIS ALLERGIES PENICILLIN (FOR ALLERGIES USE ONLY): RASH SULFA (FOR ALLERGY USE ONLY): HOT RASH LATEX: ITCH IVP DYE: FROM YEARS AGO /GAVE RASH ERYTHROMYCIN: RASH LISINOPRIL: COUGH: SIDE EFFECTS SURGICAL HISTORY HYSTERECTOMY 1981 CARPAL TUNNEL APPENDECTOMHY, HERNIA OR 1960 SIGMOID RESECTION 2006 LEFT BREAST BIOPSY 2004 BACK SURGERY, RODS AND SCREWS 05/23/2018 TWO RODS TO STABALIZE RIGHT HIP 09/28/17 FAMILY HISTORY FATHER: , DIAGNOSED WITH HEART DISEASE MOTHER: , DIAGNOSED WITH DIABETES, HYPERTENSION, HEART DISEASE 2 BROTHER(S) , 1 SISTER(S) . 1 SON(S) , 1 DAUGHTER(S) - HEALTHY. SISTER WITH LUNG DISEASE2 BROTHERS WITH HEART DISEASE. SOCIAL HISTORY GENERAL: TOBACCO USE ARE YOU A:NONSMOKER RECREATIONAL DRUG USE DRUG USE?NO CAFFEINE CAFFEINE USE?YES HOW OFTEN AND HOW MUCH? 2-3 CUPS DAILY RASTAFARIAN [id number] JUDAISM LANGUAGE LANGUAGES SPOKEN:OCCITAN LEARNING BARRIERS / SPECIAL NEEDS BARRIERS TO LEARNING?NO HEARING IMPAIRED?NO VISION IMPAIRED?YES :CORRECTIVE LENSES COGNITIVELY IMPAIRED?NO READINESS TO LEARN?YES NEW PATIENT PAIN DIARY TODAY'S VISITNOTES FROM 0-10, WHAT LEVEL IS YOUR PAIN TODAY?4 PAIN CLINIC PFS, CLERGY, PUBLIC HEALTH REFERRALS PFS REFERRAL NEEDED?NO CLERGY REFERRAL NEEDED?NO PUBLIC HEALTH REFERRAL NEEDED?NO WAS THE PROVIDER NOTIFIED OF ANY PERTINENT INFO?NO HAS THE PATIENT BEEN EDUCATED REGARDING HIS/HER PLAN OF CARE?YES HAS THE PATIENT BEEN EDUCATED REGARDING PAIN, THE RISK FOR PAIN, THE IMPORTANCE OF EFFECTIVE PAIN MANAGEMENT, AND THE PAIN ASSESSMENT PROCESS?YES ADVANCE DIRECTIVE ADVANCE DIRECTIVE DISCUSSED WITH PATIENT:YES HCP IS LUIS ATWOOD [phone] REVIEWED 12/07/17 1109REVIEWED 08/24/18 1130 LAS. HOSPITALIZATION/MAJOR DIAGNOSTIC PROCEDURE BACK SURGERY 05/2018 REVIEW OF SYSTEMS REVIEWED BY: PROVIDER: KARTHIKEYAN ROMERO . CONSTITUTIONAL: ANY CHANGE IN YOUR MEDICAL CONDITION? YES PT HAD BACK SURGERY 05/2018 . CHILLS NO . FEVER NO . INFECTION: DO YOU HAVE NEW INFECTIONS? NO . DO YOU HAVE HISTORY OF MRSA? NO . MUSCULOSKELETAL: ANY NEW PATTERNS OF PAIN OR NUMBNESS? NO . GASTROENTEROLOGY: ANY NEW CHANGE IN BOWEL CONTROL? NO . GENITOURINARY: ANY NEW CHANGE IN BLADDER CONTROL? NO . IS THERE A CHANCE YOU COULD BE ? NO . HEMATOLOGY/LYMPH: DO YOU TAKE ANY BLOOD THINNERS? (FOR EXAMPLE- COUMADIN, PLAVIX, AGGRENOX, PLATEL, PRADAXA, OR XARELTO) NO . WHEN WAS YOUR LAST DOSE? DATE: TIME: . NEUROLOGY: HAVE YOU FALLEN IN THE PAST 6 MONTHS? NO . ANY NEW EXTREMITY NUMBNESS OR WEAKNESS? NO . CARDIOLOGY: DO YOU HAVE A PACEMAKER OR DEFIBRILLATOR? NO . RESPIRATORY: HAVE YOU BEEN SICK IN THE PAST WEEK? NO . FEVER NO . FLU LIKE SYMPTOMS? NO . COUGH NO . INTEGUMENTARY: DO YOU HAVE ANY RASHES OR OPEN SORES? NO . ALLERGIC/IMMUNO: ARE YOU ALLERGIC TO SHELLFISH OR IV DYE? NO . ANY NEW ALLERGIES? NO . PSYCHIATRIC: DO YOU HAVE THOUGHTS OF HURTING YOURSELF OR SOMEONE ELSE? NO . ARE YOU ABUSED, NEGLECTED, OR IN AN UNSAFE ENVIRONMENT? NO . ENDOCRINOLOGY: ARE YOU DIABETIC? NO . OTHER: DO YOU NEED ANY PRESCRIPTIONS? NO . IF YES, PLEASE LIST: ____ . ANY NEW PROBLEMS WITH YOUR MEDICATIONS? NO . WHEN DID YOU LAST EAT? ____ . WHEN DID YOU LAST DRINK? ____ . WHAT DID YOU LAST DRINK? ____ . NAME OF PERSON DRIVING YOU HOME? ____ . DO YOU HAVE ANY OTHER QUESTIONS OR CONCERNS NO . VITAL SIGNS WT 177.4 LBS, HT 60 IN, BMI 34.64 INDEX, BP 146/71 MM HG, HR 93 /MIN, RR 16 /MIN, TEMP 97.0 F, OXYGEN SAT % 94%, SAFE IN ENV? (Y/N) YES, NA INITIALS MI 11:01, REVIEWED BY: PHYLLIS. EXAMINATION GENERAL EXAMINATION: GENERAL APPEARANCE:AWAKE,ALERT ,PLEAASANT . PSYCHAFFECT NORMAL . LUNGS:LUNG [place] ARE CLEAR TO AUSCULTATION BILATERALLY. GOOD MOVEMENT OF AIR . HEART:S1, S2 IN A REGULAR RATE AND RHYTHM. NO SIGNIFICANT MURMURS, RUBS OR GALLOPS NOTED . ASSESSMENTS SACROILIITIS, NOT ELSEWHERE CLASSIFIED - M46.1 (PRIMARY) TREATMENT SACROILIITIS, NOT ELSEWHERE CLASSIFIED NOTES: CONTINUE CARE WITH SURGEON. PROCEDURE CODES FA211 ESTABILISHED PATIENT [facility] CHARGE DISPOSITION & COMMUNICATION FOLLOW UP 3 MONTHS ELECTRONICALLY SIGNED BY HEATHER KOROMA ON 09/21/2018 AT 09:58 AM EST DISCLAIMER : THIS IS A VISIT SUMMARY EXTRACTED FROM THE [employer] CHART. IT IS NOT A COPY OF THE [employer] PROGRESS NOTE. MARLINE
== END ==
LOC: M PAIN 11:15
PROVIDERS: ATTEND Nurse Practitioner Family
DX: M46.1 Sacroiliitis, not elsewhere classified (principal); I10 Essential (primary) hypertension; E11.9 Type 2 diabetes mellitus without complications; Z79.82 Long term (current) use of aspirin; Z79.84 Long term (current) use of oral hypoglycemic drugs; Z79.899 Other long term (current) drug therapy; Z88.0 Allergy status to penicillin; Z88.2 Allergy status to sulfonamides; Z91.040 Latex allergy status; Z91.041 Radiographic dye allergy status; Z88.8 Allergy status to other drugs, medicaments and biological substances

== ENCOUNTER → 2019-05-27 | Outpatient (REF) | payer MEDICARE ==
[~2019-05-27] MED LIST changes: +LISI-1046 PO; -LISI2.5T5 PO
[2019-05-27 19:22] LABS: PERCENT SATURATION 11.9 % (13.2-45.0)
== END ==
LOC: M LAB REF 17:10
PROVIDERS: ATTEND Internal Medicine Nephrology
DX: D50.9 Iron deficiency anemia, unspecified (principal)

== ENCOUNTER → 2020-06-12 | Outpatient (CLI) | payer MEDICARE ==
[~2020-06-12] MED LIST changes: -ALEN35TA37 PO; +ALEN35TA54 PO; -LISI-1046 PO; +LISI2.5T2 PO
--- NOTE | 2020-06-19 00:47 | ECWPNPC ---
PATIENT NAME: ADELAIDA ATWOOD : 1940 GENDER: FEMALE VISIT DATE: 06/12/2020 DISCHARGE DATE: 06/12/20946 VISIT LOCKED DATE TIME: PHYSICIAN: KARTHIKEYAN PENALOZA RESOURCE: KARTHIKEYAN PENALOZA REASON FOR APPOINTMENT 1. SACROILIAC/PERIFORMIS/TROCHANTERIC PAIN HISTORY OF PRESENT ILLNESS DEPRESSION SCREENIN-YEAR-OLD FEMALE BEING REFERRED FOR CHRONIC LOW BACK PAIN. PAIN IS ACROSS THE LOWER BACK RIGHT GREATER THAN LEFT. HAD LUMBAR SURGERY IN 2018. REPORTS NO SIGNIFICANT IMPROVEMENT IN HER BACK PAIN SINCE SURGERY. HAS TRIED CONSERVATIVE MEASURES I.E. PHYSICAL THERAPY AND MEDICATIONS WITHOUT IMPROVEMENT. PAIN IS AGGRAVATED BY ACTIVITIES OF DAILY LIVING AND HOUSEWORK. PAIN IS RELIEVED SOMEWHAT AT REST AND WITH MEDICATION. DENIES INJURY. DENIES RECENT FEVER OR ILLNESS OR SUDDEN WEIGHT LOSS. DENIES BOWEL OR BLADDER INCONTINENCE. PHQ-2 (2015 EDITION) LITTLE INTEREST OR PLEASURE IN DOING THINGS?NOT AT ALL FEELING DOWN, DEPRESSED, OR HOPELESS?NOT AT ALL TOTAL SCORE0 GENERAL: - -. FALL RISK SCREENING: SCREENING :NO FALLS REPORTED IN THE LAST YEAR PAIN SCREENING: PATIENT HAS A COMPLAINT OF ACUTE OR CHRONIC PAIN :YES LOCATION OF PAIN: LOW BACK, RIGHT HIP INTENSITY OF PAIN (SCALE OF 1 TO 10):5 RANGES 5-9 WHAT DOES YOUR PAIN FEEL LIKE:CONTINOUS, SHARP DURATION:CONTINOUS PAIN IS INCREASED BY:ACTIVITIES NURSING NOTE: - -. PAIN CENTER INTAKE QUESTIONS: DO YOU HAVE A HISTORY OF MRSA? :NO DO YOU TAKE A BLOOD THINNERS? :NO DO YOU HAVE ANY BLEEDING DISORDERS? :NO ANY NEW NUMBNESS OR WEAKNESS IN YOUR LEGS OR ARMS? :YES NUMBNESS BILAT TOES ANY PACEMAKER,DEFIBRILLATOR, OR DORSAL COLUMN STIMULATOR? :NO DO YOU HAVE ANY RASHES OR OPEN SORES? :NO ARE YOU ALLERGIC TO IV DYE? :YES YEARS AGO ARE YOU DIABETIC? :YES ANY NEW PROBLEMS WITH YOUR MEDICATIONS? :NO HAVE YOU RECEIVED A VACCINE IN THE PAST 30 DAYS? :YES IF SO WHAT VACCINE AND WHEN? 05/24/20 FLU DO YOU PLAN TO RECEIVE A VACCINE IN THE NEXT 21 DAYS? :NO DO YOU NEED ANY PRESCRIPTION? :NO DO YOU TAKE ANY IMMUNOSUPPRESSIVE MEDICATIONS? :NO CURRENT MEDICATIONS TAKING GLIMEPIRIDE 4 MG TABLET ORAL BID TAKING VICTOZA 18 MG/3ML SOLUTION PEN-INJECTOR 1.8 SUBCUTANEOUS DAILY TAKING TRIBENZOR 40-10-25 MG TABLET ORAL DAILY TAKING FUROSEMIDE 20 MG TABLET 1 TABLE ORAL DAILY TAKING HYDRALAZINE HCL 10 MG TABLET ORAL DAILY TAKING METFORMIN HCL 500 MG TABLET BREAKFAST AND DINNER ORALLY BID TAKING CALTRATE 600+D SOFT 600-800 MG-UNIT TABLET CHEWABLE ORALLY BID TAKING VITAMIN C 500 MG CAPSULE ORALLY DAILY TAKING VITAMIN B 12 500 MCG LOZENGE 1 CAP ORALLY ONCE A DAY TAKING VITAMIN D-3 2000 CAPSULE 1 CAP ORALLY TWICE DAILY TAKING FLAX SEEDS 500 MG ORALLY BID TAKING VITAMIN E 400 UNIT CAPSULE 1 CAPSULE ORALLY ONCE A DAY TAKING ASPIR-81 81 MG TABLET DELAYED RELEASE 1 TABLET ORALLY ONCE A DAY TAKING ALENDRONATE SODIUM 35 MG TABLET 1 TABLET ORALLY MONDAY ONLY TAKING PAROXETINE HCL 10 MG TABLET 1 TABLET IN THE MORNING ORALLY ONCE A DAY TAKING VISION FORMULA/LUTEIN TABLET ORALLY TWICE DAILY TAKING PRILOSEC 20MG 20MG TABLET ORAL TWICE DAILY TAKING FISH OIL 1200 MG CAPSULE 1 CAPSULE ORALLY BID TAKING ATORVASTATIN CALCIUM 40 MG TABLET 1 TABLET ORALLY ONCE A DAY TAKING NADOLOL 40 MG TABLET 1 TABLET ORALLY ONCE A DAY TAKING BIOTENE DRY MOUTH - LOZENGE DIRECTED MOUTH/THROAT TAKING MAGNESIUM 400 MG CAPSULE DIRECTED ORALLY TAKING AMILORIDE HCL 5 MG TABLET 1 TABLET WITH FOOD ORALLY ONCE A DAY TAKING VALTREX 1 GM TABLET 1 TABLET ORALLY ONCE A DAY NOT-TAKING METOPROLOL TARTRATE 100 MG SEMI-ELECTRIC WITH ORAL BID NOT-TAKING POTASSIUM CHLORIDE ER 10 MEQ TABLET EXTENDED RELEASE 1 TABLETS WITH FOOD ORAL BID NOT-TAKING BACLOFEN 10 MG TABLET 1//2 - 1 TABLET WITH FOOD OR MILK ORALLY THREE TIMES A DAY NOT-TAKING MELOXICAM 15 MG TABLET 1 TABLET ORALLY ONCE A DAY NOT-TAKING TRAMADOL HCL 50 MG TABLET 1 TABLET NEEDED ORALLY EVERY 6 HRS PRN PAIN MDD=3 NOT-TAKING BACLOFEN 10 MG TABLET 1/2 -1 TABLET ORALLY 3X/DAY NEEDED NOT-TAKING MELOXICAM 7.5 MG TABLET 1 TABLET ORALLY ONCE A DAY NOT-TAKING FLUTICASONE PROPIONATE 50 MCG/ACT SUSPENSION NASAL NEEDED MEDICATION LIST REVIEWED AND RECONCILED WITH THE PATIENT PAST MEDICAL HISTORY BRONCHIATUS HTN 2 CARDIAC CATHS PNEUMONIA HOME CPAP USE GERD CATARACT SURGURY BOTH EYES ANEMIA DIABETES DIVERTICULITIS ALLERGIES PENICILLIN (FOR ALLERGIES USE ONLY): RASH SULFA (FOR ALLERGY USE ONLY): HOT RASH LATEX: ITCH IVP DYE: FROM YEARS AGO /GAVE RASH ERYTHROMYCIN: RASH LISINOPRIL: COUGH - SIDE EFFECTS SURGICAL HISTORY HYSTERECTOMY 1980 CARPAL TUNNEL APPENDECTOMHY, HERNIA OR 1960 SIGMOID RESECTION 2007 LEFT BREAST BIOPSY 2004 BACK SURGERY, RODS AND SCREWS 05/23/2018 TWO RODS TO STABALIZE RIGHT HIP 09/28/17 TONSILLECTOMY FAMILY HISTORY FATHER: , DIAGNOSED WITH UNSPECIFIED HEART DISEASE MOTHER: , HYPERTENSION, UNSPECIFIED HEART DISEASE, DIABETES 3 BROTHER(S) , 5 SISTER(S) . 1 SON(S) , 1 DAUGHTER(S) - HEALTHY. SISTER WITH LUNG DISEASE DECEASED2 BROTHERS WITH HEART DISEASE. SOCIAL HISTORY GENERAL: TOBACCO USE ARE YOU A: NONSMOKER. LATEX QUESTIONNAIRE LATEX ALLERGY : HAVE YOU EVER DEVELOPED ANY TYPE OF REACTION AFTER HANDLING LATEX PRODUCTS SUCH RUBBER GLOVES, CONDOMS, DIAPHRAGMS, BALLOONS, SOCKS, OR UNDERWEAR?YES - PLEASE INDICATE :RUBBER GLOVES, SOCKS LATEX ALLERGY : HAVE YOU EVER DEVELOPED ANY TYPE OF REACTION DURING OR AFTER DENTAL APPOINTMENT, VAGINAL/RECTAL EXAMINATION, SURGICAL PROCEDURE, OR ANY OTHER EXPOSURE?NO LATEX RISK : HAVE YOU EVER HAD ANY DIFFICULTY BREATHING OR HIVES AFTER EATING OR HANDLING ANY FRUITS, OR VEGETABLES; SUCH KIWI, BANANAS, STONE FRUITS, OR CHESTNUTSNO LATEX RISK : DO YOU HAVE A PREVIOUS PERSONAL HISTORY OF MORE THAN NINE SURGERIES, SPINA BIFIDA, OR REPEATED CATHERIZATIONS? NO LATEX RISK : ARE YOU FREQUENTLY EXPOSED TO LATEX PRODUCTS IN YOUR OCCUPATION?NO DATE ASKED : 06/10/2020 ALCOHOL SCREENING DID YOU HAVE A DRINK CONTAINING ALCOHOL IN THE PAST YEAR?YES HOW OFTEN DID YOU HAVE A DRINK CONTAINING ALCOHOL IN THE PAST YEAR?MONTHLY OR LESS (1 POINT) HOW MANY DRINKS DID YOU HAVE ON A TYPICAL DAY WHEN YOU WERE DRINKING IN THE PAST YEAR?1 OR 2 (0 POINTS) HOW OFTEN DID YOU HAVE SIX OR MORE DRINKS ON ONE OCCASION IN THE PAST YEAR?NEVER (0 POINTS) POINTS1 INTERPRETATIONNEGATIVE RECREATIONAL DRUG USE DRUG USE?NO CAFFEINE CAFFEINE USE?YES HOW OFTEN AND HOW MUCH? 2-3 CUPS DAILY MORAVIAN [id number] SCIENTOLOGIST LANGUAGE LANGUAGES SPOKEN:URDU EDUCATION LEVEL OF EDUCATION: 11TH GRADE HS LEARNING BARRIERS / SPECIAL NEEDS BARRIERS TO LEARNING?NO HEARING IMPAIRED?NO VISION IMPAIRED?YES COGNITIVELY IMPAIRED?NO :CORRECTIVE LENSES READINESS TO LEARN?YES DOMESTIC VIOLENCE STATUS: NUMBER OF MONTHS/YEARS IN CURRENT RELATIONSHIP?USE NOTES SECTION 57 YRS DO YOU FEEL SAFE IN YOUR ENVIRONMENT?YES OCCUPATION: RETIRED CUSTOMER SERVICE. MARITAL STATUS: . OTHERS AT HOME: SPOUSE. NEW PATIENT PAIN DIARY TODAY'S VISITNOTES FROM 0-10, WHAT LEVEL IS YOUR PAIN TODAY?4 PAIN CLINIC PFS, CLERGY, PUBLIC HEALTH REFERRALS PFS REFERRAL NEEDED?NO CLERGY REFERRAL NEEDED?NO PUBLIC HEALTH REFERRAL NEEDED?NO WAS THE PROVIDER NOTIFIED OF ANY PERTINENT INFO?NO HAS THE PATIENT BEEN EDUCATED REGARDING HIS/HER PLAN OF CARE?YES HAS THE PATIENT BEEN EDUCATED REGARDING PAIN, THE RISK FOR PAIN, THE IMPORTANCE OF EFFECTIVE PAIN MANAGEMENT, AND THE PAIN ASSESSMENT PROCESS?YES ADVANCE DIRECTIVE ADVANCE DIRECTIVE DISCUSSED WITH PATIENT:YES HCP IS LUIS ATWOOD [phone] REVIEWED 12/07/17 1109REVIEWED 08/24/18 1130 LAS. HOSPITALIZATION/MAJOR DIAGNOSTIC PROCEDURE BACK SURGERY 05/2018 REVIEW OF SYSTEMS REVIEWED BY: PROVIDER: KARTHIKEYAN ROMERO . CONSTITUTIONAL: ANY CHANGE IN YOUR MEDICAL CONDITION? YES PT HAD BACK SURGERY 05/2018 . CHILLS NO . FEVER NO . INFECTION: DO YOU HAVE NEW INFECTIONS? NO . DO YOU HAVE HISTORY OF MRSA? NO . MUSCULOSKELETAL: ANY UNUSUAL JOINT PAIN OR SWELLING NOT MENTIONED NO . GASTROENTEROLOGY: ANY NEW CHANGE IN BOWEL CONTROL? NO . GENITOURINARY: ANY NEW CHANGE IN BLADDER CONTROL? NO . IS THERE A CHANCE YOU COULD BE ? NO . HEMATOLOGY/LYMPH: DO YOU TAKE ANY BLOOD THINNERS? (FOR EXAMPLE- COUMADIN, PLAVIX, AGGRENOX, PLATEL, PRADAXA, OR XARELTO) NO . WHEN WAS YOUR LAST DOSE? DATE: TIME: . NEUROLOGY: HAVE YOU FALLEN IN THE PAST 12 MONTHS? NO . OTHER NEW NUMBNESS OR PAIN PATTERNS NOT MENTIONED NO . CARDIOLOGY: DO YOU HAVE A PACEMAKER OR DEFIBRILLATOR? NO . RESPIRATORY: HAVE YOU BEEN SICK IN THE PAST WEEK? NO . FEVER NO . FLU LIKE SYMPTOMS? NO . COUGH NO . INTEGUMENTARY: DO YOU HAVE ANY RASHES OR OPEN SORES? NO . ALLERGIC/IMMUNO: ARE YOU ALLERGIC TO IV DYE? NO . ANY NEW ALLERGIES? NO . PSYCHIATRIC: DO YOU HAVE THOUGHTS OF HURTING YOURSELF OR SOMEONE ELSE? NO . ARE YOU ABUSED, NEGLECTED, OR IN AN UNSAFE ENVIRONMENT? NO . ENDOCRINOLOGY: ARE YOU DIABETIC? NO . OTHER: DO YOU NEED ANY PRESCRIPTIONS? NO . IF YES, PLEASE LIST: ____ . ANY NEW PROBLEMS WITH YOUR MEDICATIONS? NO . WHEN DID YOU LAST EAT? ____ . WHEN DID YOU LAST DRINK? ____ . WHAT DID YOU LAST DRINK? ____ . NAME OF PERSON DRIVING YOU HOME? ____ . DO YOU HAVE ANY OTHER QUESTIONS OR CONCERNS NO . VITAL SIGNS WT 181.4 LBS, HT 60 IN, BMI 35.42 INDEX, BP 164/79 MM HG, HR 74 /MIN, RR 16 /MIN, TEMP 97.2 F, OXYGEN SAT % 97%, BLOOD GLUCOSE LEVEL 130 @ 0600, SAFE IN ENV? (Y/N) YES, [place] 0[address], REVIEWED BY: MT. EXAMINATION GENERAL EXAMINATION: GENERAL ALERT,NO DISTRESS . PSYCH AFFECT NORMAL . LUNGS: LUNG SOUNDS ARE CLEAR . HEART: HEART RATE REGULAR . MUSCULOSKELETAL: MST 5/5 BILAT. LOWER EXTREMITIES . LUMBAR: TENDERNESS BILAT. SIJ .RIGHT >LEFT.TENDER OVER RIGHT PIRIFORMIS. DIAGNOSTIC TESTS REVIEWEDI L/S SPINE 2016. ASSESSMENTS SACROILIITIS, NOT ELSEWHERE CLASSIFIED - M46.1 (PRIMARY) TREATMENT SACROILIITIS, NOT ELSEWHERE CLASSIFIED NOTES: BILAT SIJ. OTHERS CLINICAL NOTES: 06/10/20 @ 1150 CARISSA MCPHERSON TRAVELING FREIGHT AGENT. PREVENTIVE MEDICINE PAIN CLINIC TEACHING: THE PATIENT HAS BEEN EDUCATED REGARDING PAIN, THE RISK FOR PAIN, THE IMPORTANCE OF EFFECTIVE PAIN MANAGEMENT, AND THE PAIN ASSESSMENT PROCESS. : DISCUSSED PRE PROCEDURE INSTRUCTIONS FOR BILATERAL SACROILIAC JOINT INJECTION. PATIENT VERBALIZES UNDERSTANDING. PROCEDURE CODES FA211 ESTABILISHED PATIENT [facility] CHARGE DISPOSITION & COMMUNICATION FOLLOW UP POST PROC (REASON: BILAT SIJ) ELECTRONICALLY SIGNED BY HEATHER KOROMA ON 06/18/2020 AT 12:38 PM EDT DISCLAIMER : THIS IS A VISIT SUMMARY EXTRACTED FROM THE [employer] CHART. IT IS NOT A COPY OF THE [employer] PROGRESS NOTE. MARLINE
== END ==
LOC: M PAIN 08:30
PROVIDERS: ATTEND Nurse Practitioner Family
DX: M46.1 Sacroiliitis, not elsewhere classified (principal); G89.29 Other chronic pain; I10 Essential (primary) hypertension; K21.9 Gastro-esophageal reflux disease without esophagitis; E11.9 Type 2 diabetes mellitus without complications; Z88.0 Allergy status to penicillin; Z88.1 Allergy status to other antibiotic agents; Z88.2 Allergy status to sulfonamides; Z88.8 Allergy status to other drugs, medicaments and biological substances; Z91.041 Radiographic dye allergy status; Z79.82 Long term (current) use of aspirin; Z79.84 Long term (current) use of oral hypoglycemic drugs; Z79.899 Other long term (current) drug therapy

== ENCOUNTER → 2020-06-20 | Outpatient (CLI) | payer MEDICARE | LOC: M LABSMTC 09:50 | PROVIDERS: ATTEND Anesthesiology | DX: Z20.828 Contact with and (suspected) exposure to other viral communicable diseases (principal) | CPT/HCPCS: C9803; U0003 ==

== ENCOUNTER → 2020-06-25 | Outpatient (CLI) | payer MEDICARE ==
[~2020-06-25] MED LIST changes: +BUPIVACAINE HCL 0.25% 30ML VIAL As Ordered ONE; +ISOVUE-M 300 61% 15ML VIAL As Ordered ONE; +LIDOCAINE 1% SDV 30ML VIAL As Ordered ONE; +TRIAMCINOLONE ACETONIDE SUSP 40 MG/ML VIAL (J3301) As Ordered ONE; +diphenhydrAMINE 25MG CAP As Ordered ONE
--- NOTE | 2020-06-25 12:17 | REP ---
INDICATION: BILATERAL SACROILIAC JOINT BLOCK//PAIN. COMPARISON: 05/11/2017 TECHNIQUE: Multiple C-arm views sacroiliac joints performed. FINDINGS: A needle overlies each sacroiliac joint. Fusion hardware is seen in the lower lumbar spine and at the right sacroiliac joint. IMPRESSION: 29 seconds fluoroscopy time utilized. <Electronically signed by Phoenix Mera > 06/25/20 [id number]
--- NOTE | 2020-06-29 16:54 | ECWPNPC ---
PATIENT NAME: ADELAIDA ATWOOD : 1940 GENDER: FEMALE VISIT DATE: 06/25/2020 DISCHARGE DATE: 06/25/20 0000 VISIT LOCKED DATE TIME: PHYSICIAN: MICHELLE BELTRAN MD RESOURCE: MICHELLE BELTRAN MD REASON FOR APPOINTMENT 1. BILATERAL SIJ HISTORY OF PRESENT ILLNESS GENERAL: -. FALL RISK SCREENING: SCREENING :NO FALLS REPORTED IN THE LAST YEAR PAIN SCREENING: PATIENT HAS A COMPLAINT OF ACUTE OR CHRONIC PAIN :YES LOCATION OF PAIN: LOW BACK INTENSITY OF PAIN (SCALE OF 1 TO 10): 6/10 WHAT DOES YOUR PAIN FEEL LIKE:CONTINOUS,STABBING DURATION:CONTINOUS,CONSTANT PAIN IS INCREASED BY:ACTIVITIES PAIN IS DECREASED BY:USE OF PAIN MEDICATIONS,OTHERS RESTING NURSING NOTE: -. PAIN CENTER INTAKE QUESTIONS: DO YOU HAVE A HISTORY OF MRSA? :NO DO YOU TAKE A BLOOD THINNERS? :NO DO YOU HAVE ANY BLEEDING DISORDERS? :NO ANY NEW NUMBNESS OR WEAKNESS IN YOUR LEGS OR ARMS? :NO ANY PACEMAKER,DEFIBRILLATOR, OR DORSAL COLUMN STIMULATOR? :NO DO YOU HAVE ANY RASHES OR OPEN SORES? :NO ARE YOU ALLERGIC TO IV DYE? :YES PATIENT STATES, 30 YEARS AGO, HASNT HAD AN INCIDENT SINCE WITH IV DYE. ARE YOU DIABETIC? :YES INSTRUCTED TO DO FSBS MORNING OF PROCEDURE ANY NEW PROBLEMS WITH YOUR MEDICATIONS? :NO HAVE YOU RECEIVED A VACCINE IN THE PAST 30 DAYS? :YES IF SO WHAT VACCINE AND WHEN? FLU VACCINATION 05/24/20. DO YOU PLAN TO RECEIVE A VACCINE IN THE NEXT 21 DAYS? :NO DO YOU TAKE ANY IMMUNOSUPPRESSIVE MEDICATIONS? :NO ANY HISTORY OF SEIZURES? :NO ANY HISTORY OF CARDIAC ISSUES OR EVENTS? :NO DO YOU HAVE SLEEP APNEA? :YES WITH CPAP ANY RECENT HEAD INJURY? :NO DO YOU HAVE ANY NEW INFECTIONS? :NO IS THERE A CHANCE YOU COULD BE ? :NO ARE YOU BREAST FEEDING? :NO WHEN DID YOU LAST EAT? : 06/24/20 2100 WHEN DID YOU LAST DRINK? : 06/25/20 0630 WHAT DID YOU LAST DRINK? : WATER/APPLE JUICE NAME OF PERSON DRIVING YOU HOME? : BRYANT () DO YOU HAVE ANY OTHER QUESTIONS OR CONCERNS? : NO CURRENT MEDICATIONS TAKING GLIMEPIRIDE 4 MG TABLET ORAL BID, NOTES: 06/24/20 1700 TAKING VICTOZA 18 MG/3ML SOLUTION PEN-INJECTOR 1.8 SUBCUTANEOUS DAILY, NOTES: 06/24/20 1300 TAKING TRIBENZOR 40-10-25 MG TABLET ORAL DAILY, NOTES: 06/25/20 0600 TAKING FUROSEMIDE 20 MG TABLET 1 TABLE ORAL DAILY, NOTES: 06/24/20 0800 TAKING HYDRALAZINE HCL 10 MG TABLET ORAL DAILY, NOTES: 06/25/20 0600 TAKING METFORMIN HCL 500 MG TABLET BREAKFAST AND DINNER ORALLY BID, NOTES: 06/24/20 1700 TAKING CALTRATE 600+D SOFT 600-800 MG-UNIT TABLET CHEWABLE ORALLY BID, NOTES: 06/24/201199 TAKING VITAMIN C 500 MG CAPSULE ORALLY DAILY, NOTES: 06/24/201199 TAKING VITAMIN B 12 500 MCG LOZENGE 1 CAP ORALLY ONCE A DAY, NOTES: 06/24/202099 TAKING VITAMIN D-3 2000 CAPSULE 1 CAP ORALLY TWICE DAILY, NOTES: 06/24/202099 TAKING FLAX SEEDS 500 MG ORALLY BID, NOTES: 06/24/201199 TAKING VITAMIN E 400 UNIT CAPSULE 1 CAPSULE ORALLY ONCE A DAY, NOTES: 06/24/201199 TAKING ASPIR-81 81 MG TABLET DELAYED RELEASE 1 TABLET ORALLY ONCE A DAY, NOTES: 06/24/202099 TAKING ALENDRONATE SODIUM 35 MG TABLET 1 TABLET ORALLY MONDAY ONLY, NOTES: 06/20/20 TAKING PAROXETINE HCL 10 MG TABLET 1 TABLET IN THE MORNING ORALLY ONCE A DAY, NOTES: 06/25/20 06 TAKING VISION FORMULA/LUTEIN TABLET ORALLY TWICE DAILY, NOTES: 06/24/202099 TAKING PRILOSEC 20MG 20MG TABLET ORAL TWICE DAILY, NOTES: 06/25/20 06 TAKING FISH OIL 1200 MG CAPSULE 1 CAPSULE ORALLY BID, NOTES: 06/24/202099 TAKING ATORVASTATIN CALCIUM 40 MG TABLET 1 TABLET ORALLY ONCE A DAY, NOTES: 06/24/202099 TAKING NADOLOL 40 MG TABLET 1 TABLET ORALLY ONCE A DAY, NOTES: 06/24/202099 TAKING BIOTENE DRY MOUTH - LOZENGE DIRECTED MOUTH/THROAT , NOTES: 06/24/202099 TAKING MAGNESIUM 400 MG CAPSULE DIRECTED ORALLY , NOTES: 06/24/201199 TAKING AMILORIDE HCL 5 MG TABLET 1 TABLET WITH FOOD ORALLY ONCE A DAY, NOTES: 06/24/20 NOT-TAKING VALTREX 1 GM TABLET 1 TABLET ORALLY ONCE A DAY, NOTES: LAST WEEK NOT-TAKING METOPROLOL TARTRATE 100 MG SEMI-ELECTRIC WITH ORAL BID NOT-TAKING POTASSIUM CHLORIDE ER 10 MEQ TABLET EXTENDED RELEASE 1 TABLETS WITH FOOD ORAL BID NOT-TAKING BACLOFEN 10 MG TABLET 1//2 - 1 TABLET WITH FOOD OR MILK ORALLY THREE TIMES A DAY NOT-TAKING MELOXICAM 15 MG TABLET 1 TABLET ORALLY ONCE A DAY NOT-TAKING TRAMADOL HCL 50 MG TABLET 1 TABLET NEEDED ORALLY EVERY 6 HRS PRN PAIN MDD=3 NOT-TAKING BACLOFEN 10 MG TABLET 1/2 -1 TABLET ORALLY 3X/DAY NEEDED NOT-TAKING MELOXICAM 7.5 MG TABLET 1 TABLET ORALLY ONCE A DAY NOT-TAKING FLUTICASONE PROPIONATE 50 MCG/ACT SUSPENSION NASAL NEEDED MEDICATION LIST REVIEWED AND RECONCILED WITH THE PATIENT PAST MEDICAL HISTORY BRONCHIATUS HTN 2 CARDIAC CATHS PNEUMONIA HOME CPAP USE GERD CATARACT SURGURY BOTH EYES ANEMIA DIABETES DIVERTICULITIS ALLERGIES PENICILLIN (FOR ALLERGIES USE ONLY): RASH SULFA (FOR ALLERGY USE ONLY): HOT RASH LATEX: ITCH IVP DYE: FROM YEARS AGO /GAVE RASH ERYTHROMYCIN: RASH LISINOPRIL: COUGH - SIDE EFFECTS HYDROCODONE-ACETAMINOPHEN: NAUSEA/VOMITING - ALLERGY SURGICAL HISTORY HYSTERECTOMY 1981 CARPAL TUNNEL APPENDECTOMHY, HERNIA OR 1960 SIGMOID RESECTION 2006 LEFT BREAST BIOPSY 2004 BACK SURGERY, RODS AND SCREWS 05/23/2018 TWO RODS TO STABALIZE RIGHT HIP 09/28/17 TONSILLECTOMY FAMILY HISTORY FATHER: , DIAGNOSED WITH UNSPECIFIED HEART DISEASE MOTHER: , UNSPECIFIED HEART DISEASE, DIABETES, HYPERTENSION 3 BROTHER(S) , 5 SISTER(S) . 1 SON(S) , 1 DAUGHTER(S) - HEALTHY. SISTER WITH LUNG DISEASE DECEASED2 BROTHERS WITH HEART DISEASE. SOCIAL HISTORY GENERAL: TOBACCO USE ARE YOU A: NONSMOKER. LATEX QUESTIONNAIRE LATEX ALLERGY : HAVE YOU EVER DEVELOPED ANY TYPE OF REACTION AFTER HANDLING LATEX PRODUCTS SUCH RUBBER GLOVES, CONDOMS, DIAPHRAGMS, BALLOONS, SOCKS, OR UNDERWEAR?YES - PLEASE INDICATE :RUBBER GLOVES, SOCKS LATEX ALLERGY : HAVE YOU EVER DEVELOPED ANY TYPE OF REACTION DURING OR AFTER DENTAL APPOINTMENT, VAGINAL/RECTAL EXAMINATION, SURGICAL PROCEDURE, OR ANY OTHER EXPOSURE?NO LATEX RISK : HAVE YOU EVER HAD ANY DIFFICULTY BREATHING OR HIVES AFTER EATING OR HANDLING ANY FRUITS, OR VEGETABLES; SUCH KIWI, BANANAS, STONE FRUITS, OR CHESTNUTSNO LATEX RISK : DO YOU HAVE A PREVIOUS PERSONAL HISTORY OF MORE THAN NINE SURGERIES, SPINA BIFIDA, OR REPEATED CATHERIZATIONS? NO LATEX RISK : ARE YOU FREQUENTLY EXPOSED TO LATEX PRODUCTS IN YOUR OCCUPATION?NO DATE ASKED : 06/24/2020 ALCOHOL SCREENING DID YOU HAVE A DRINK CONTAINING ALCOHOL IN THE PAST YEAR?YES HOW OFTEN DID YOU HAVE SIX OR MORE DRINKS ON ONE OCCASION IN THE PAST YEAR?NEVER (0 POINTS) HOW MANY DRINKS DID YOU HAVE ON A TYPICAL DAY WHEN YOU WERE DRINKING IN THE PAST YEAR?1 OR 2 (0 POINTS) HOW OFTEN DID YOU HAVE A DRINK CONTAINING ALCOHOL IN THE PAST YEAR?MONTHLY OR LESS (1 POINT) POINTS1 INTERPRETATIONNEGATIVE RECREATIONAL DRUG USE DRUG USE?NO CAFFEINE CAFFEINE USE?YES HOW OFTEN AND HOW MUCH? 2-3 CUPS DAILY [id number] DENOMINATIONAL LANGUAGE LANGUAGES SPOKEN:ROMANIAN EDUCATION LEVEL OF EDUCATION: 11TH GRADE HS LEARNING BARRIERS / SPECIAL NEEDS BARRIERS TO LEARNING?NO HEARING IMPAIRED?NO VISION IMPAIRED?YES COGNITIVELY IMPAIRED?NO :CORRECTIVE LENSES READINESS TO LEARN?YES DOMESTIC VIOLENCE STATUS: NUMBER OF MONTHS/YEARS IN CURRENT RELATIONSHIP?USE NOTES SECTION 57 YRS DO YOU FEEL SAFE IN YOUR ENVIRONMENT?YES OCCUPATION: RETIRED CUSTOMER SERVICE. MARITAL STATUS: . OTHERS AT HOME: SPOUSE. PAIN CLINIC PFS, CLERGY, PUBLIC HEALTH REFERRALS PFS REFERRAL NEEDED?NO CLERGY REFERRAL NEEDED?NO PUBLIC HEALTH REFERRAL NEEDED?NO WAS THE PROVIDER NOTIFIED OF ANY PERTINENT INFO?NO HAS THE PATIENT BEEN EDUCATED REGARDING HIS/HER PLAN OF CARE?YES HAS THE PATIENT BEEN EDUCATED REGARDING PAIN, THE RISK FOR PAIN, THE IMPORTANCE OF EFFECTIVE PAIN MANAGEMENT, AND THE PAIN ASSESSMENT PROCESS?YES ADVANCE DIRECTIVE ADVANCE DIRECTIVE DISCUSSED WITH PATIENT:YES HCP IS LUIS ATWOOD [phone] HOSPITALIZATION/MAJOR DIAGNOSTIC PROCEDURE BACK SURGERY 05/2018 VITAL SIGNS WT 181 LBS, HT 60 IN, BMI 35.35 INDEX, BP 155/70 MM HG, HR 76 /MIN, RR 16 /MIN, TEMP 97.2 F, OXYGEN SAT % 98%, BLOOD GLUCOSE LEVEL 137 (0600), SAFE IN ENV? (Y/N) YES, NA INITIALS DE 09:02, REVIEWED BY: MT. EXAMINATION GENERAL EXAMINATION: THE PATIENT IS ALERT, ORIENTED TIMES THREE AND COOPERATIVE. HEART SHOWS REGULAR RHYTHM, NO MURMURS AND NO GALLOPS. LUNGS ARE CLEAR TO AUSCULTATION. ASSESSMENTS SACROILIITIS, NOT ELSEWHERE CLASSIFIED - M46.1 (PRIMARY), RISK: (NULL) SACROILIAC JOINT DYSFUNCTION - M53.3 TREATMENT SACROILIITIS, NOT ELSEWHERE CLASSIFIED [facility] FLUORO GUIDANCE (PAIN)[id number] MEDICATION: BENADRYL TAB 25MG ORALLY (DIPHENHYDRAMINE)LARISA BRIAN RN 06/25/2020 9:52:39 AM > VERIFIED. VENICE JUDD 06/25/2020 9:54:41 AM > LOT #: [id number] EXP: 10/2022. VENICE JUDD 06/25/2020 9:57:01 AM > ADMINISTERED. OTHERS NOTES: PAT COMPLETED BY FRANCESCA. PROCEDURES PAIN NURSING RECORD PROCEDURE IN ROOM 1035, PHYSICIAN IN ROOM 1051, START 1055, FINISH 1100, PHYSICIAN OUT OF ROOM 1102, OUT OF ROOM 1107, STEROID KENALOG, O2 N/A, ECG NORMAL SINUS, PATIENT SHIELDED YES, SAFETY STRAP YES, PREP CHLOROPREP, IV INFUSED N/A, DRESSING TEGADERM DR. BELTRAN LOC: VENICE JUDD 06/25/2020 10:40:35 AM > 1. ALERT, ORIENTED RESP: VENICE JUDD 06/25/2020 10:40:35 AM > 1. REGULAR, NO DYSPNEA COLOR: VENICE JUDD 06/25/2020 10:40:35 AM > 1. PINK SKIN: VENICE JUDD 06/25/2020 10:40:35 AM > 1. WARM, DRY POSITION: VENICE JUDD 06/25/2020 10:40:35 AM > 1. PRONE VITALS: VENICE JUDD 06/25/2020 10:41:02 AM > 172/77, HR 76, 96% RA, RR 18. VENICE JUDD 06/25/2020 10:51:56 AM > 154/61, HR 76, 99% RA, RR 18. VENICE JUDD 06/25/2020 10:59:09 AM > 153/69, HR 80, 97% RA, RR 18. VENICE JUDD 06/25/2020 11:17:55 AM > POST PROCEDURE 149/72, HR 85, 98% RA, RR 18. DISCHARGE: POST PAIN 09/13, DRESSING SITE DRY AND INTACT, IV N/A, GAIT STEADY, TEACHING COMPLETED, PATIENT ACKNOWLEDGES UNDERSTANDING YES, PATIENT DISCHARGED AT 1125 PN SI PRE PROCEDURE DIAGNOSIS SACROILIITIS, SACROILIAC JOINT DYSFUNCTION POST PROCEDURE DIAGNOSIS SACROILIITIS, SACROILIAC JOINT DYSFUNCTION PROCEDURE BILATERAL SACROILIAC JOINT BLOCK SURGEON DR. MICHELLE BELTRAN MATCHER NONE ANESTHESIA LOCAL PRE PROCEDURE NOTE THE PATIENT WITH HISTORY OF CHRONIC LOW BACK PAIN. I EVALUATED THE PATIENT AND REVIEWED THE CHART. I WENT OVER THE RISKS, ALTERNATIVES, AND BENEFITS ASSOCIATED WITH THIS PROCEDURE. I DISCUSSED THAT THE USE OF STEROIDS MAY CONTRIBUTE TO IMMUNOSUPPRESSION OF THE PATIENT'S BODY AGAINST INFECTIONS SUCH COVID-19. THE PATIENT IS AWARE OF THE POTENTIAL COMPLICATIONS ASSOCIATED WITH THIS VIRUS, INCLUDING, BUT NOT LIMITED TO, . THE PATIENT WOULD LIKE TO PROCEED AND GAVE CONSENT TO PERFORM THE PROCEDURE. THE PATIENT DENIES UNEXPLAINABLE WEIGHT LOSS, FEVER, CHILLS, OR NEW CHANGES IN URINARY OR BOWEL CONTROL. THE PATIENT IS COVID-19 NEGATIVE DESCRIPTION OF PROCEDURE THE PATIENT WAS BROUGHT TO THE PROCEDURE ROOM AND PLACED IN THE PRONE POSITION. THE LUMBOSACRAL AREA WAS CLEANED WITH CHLORAPREP SOLUTION AND DRAPED ASEPTICALLY. THE PROCEDURE WAS DONE UNDER STERILE CONDITIONS. A TIMEOUT WAS PERFORMED WHERE LATERALITY AND THE SITE OF THE PROCEDURE WERE CHECKED AND CONFIRMED WITH EVERYONE IN THE ROOM. UNDER FLUOROSCOPIC GUIDANCE, THE TARGET POINT WAS SELECTED AT THE LOWER BORDER OF THE RIGHT AND LEFT SACROILIAC JOINT. TARGET POINT WAS SELECTED AFTER MEDIAL ROTATION AND TILT OF THE MAGNIFIER OR THE C-ARM. I CONFIRMED AGAIN WITH EVERYONE IN THE ROOM THE LATERALITY OF THE TARGET AT 1055 ON THE LEFT AND 1058 ON THE RIGHT. LIDOCAINE 0.5% WAS USED TO NUMB THE SKIN AND THE SUBCUTANEOUS TISSUE BELOW IT. SPINAL NEEDLES, 22-GAUGE, WERE ADVANCED UNDER FLUOROSCOPIC GUIDANCE AND FOLLOWING PATIENT FEEDBACK UNTIL THE TARGETS WERE TOUCHED. THE POSITION OF THE NEEDLES WAS VERIFIED WITH AP AND OBLIQUE VIEWS. AFTER PROPER POSITION OF THE NEEDLES WAS ACHIEVED, ISOVUE-M DYE 30%, 0.1 ML, WAS INJECTED SHOWING ADEQUATE SPREAD OF THE DYE. KENALOG 40 MG WAS INJECTED AT EACH SITE. THEN, A SOLUTION OF 3.0 ML OF BUPIVACAINE 0.125% WAS USED TO FLUSH EACH NEEDLE. THE MEDICATIONS WERE VERIFIED WITH THE NURSE. THERE WAS NO EVIDENCE OF BLOOD, PARESTHESIA OR CEREBROSPINAL FLUID DURING THE PROCEDURE. THE PATIENT WAS SENT TO THE RECOVERY ROOM. THE PATIENT WAS MOVING THE EXTREMITIES AND DOING WELL. THERE WERE NO COMPLICATIONS DURING THE PROCEDURE. ESTIMATED BLOOD LOSS WAS LESS THAN 5 ML. FLUOROSCOPIC TIME WAS 28 SECONDS. POST PROCEDURE NOTE LAST MRI IN THE RECORD IS IN 2015. IF SHE HAS NOT HAD AN UPDATED MRI WITHIN THE LAST 2 YEARS THEN CONSIDER A NEW MRI. THE PROCEDURE DONE WAS DISCUSSED WITH THE PATIENT. THE PATIENT WILL BE SEEN IN A FOLLOW UP IN THE NEXT FEW WEEKS. I AM LOOKING FOR LONG LASTING PAIN RELIEF FOR THE PATIENT WITH THIS INTERVENTION. INSTRUCTIONS WERE GIVEN, QUESTIONS WERE ANSWERED, AND THE PATIENT EXPRESSED UNDERSTANDING AND AGREES WITH THE PLAN. I, MOE PAYNE, DOCUMENTED THE ABOVE INFORMATION ACTING A SCRIBE FOR DR. BELTRAN. I HAVE REVIEWED THE ABOVE DOCUMENT, WRITTEN BY MOE PAYNE, ELECTRIC ARC FURNACE OPERATOR, AND I VERIFY THAT IT IS ACCURATE PROCEDURE CODES 93732 INJECT SACROILIAC JOINT, MODIFIERS: 50 DISPOSITION & COMMUNICATION FOLLOW UP FOLLOW UP WITH CREW LEADER/CONTROL ROOM OPERATOR (REASON: POST BILATERAL SIJ) ELECTRONICALLY SIGNED BY MICHELLE BELTRAN MD, MD ON 06/29/2020 AT 02:09 PM EDT DISCLAIMER : THIS IS A VISIT SUMMARY EXTRACTED FROM THE [employer] CHART. IT IS NOT A COPY OF THE [employer] PROGRESS NOTE. MTDMari
== END ==
LOC: M PAIN 09:00
PROVIDERS: ATTEND Anesthesiology
DX: M46.1 Sacroiliitis, not elsewhere classified (principal); M53.3 Sacrococcygeal disorders, not elsewhere classified; I10 Essential (primary) hypertension; G47.33 Obstructive sleep apnea (adult) (pediatric); K21.9 Gastro-esophageal reflux disease without esophagitis; E11.9 Type 2 diabetes mellitus without complications; Z88.0 Allergy status to penicillin; Z88.1 Allergy status to other antibiotic agents; Z88.2 Allergy status to sulfonamides; Z88.5 Allergy status to narcotic agent; Z88.8 Allergy status to other drugs, medicaments and biological substances; Z91.040 Latex allergy status; Z91.041 Radiographic dye allergy status; Z79.82 Long term (current) use of aspirin; Z79.84 Long term (current) use of oral hypoglycemic drugs; Z79.899 Other long term (current) drug therapy
CPT/HCPCS: G0260; J3301; Q9967

== ENCOUNTER → 2020-07-15 | Outpatient (CLI) | payer MEDICARE ==
[~2020-07-15] MED LIST changes: -BUPIVACAINE HCL 0.25% 30ML VIAL As Ordered ONE; -ISOVUE-M 300 61% 15ML VIAL As Ordered ONE; -LIDOCAINE 1% SDV 30ML VIAL As Ordered ONE; -TRIAMCINOLONE ACETONIDE SUSP 40 MG/ML VIAL (J3301) As Ordered ONE; -diphenhydrAMINE 25MG CAP As Ordered ONE
--- NOTE | 2020-07-16 23:03 | ECWPNPC ---
PATIENT NAME: ADELAIDA ATWOOD : 1940 GENDER: FEMALE VISIT DATE: 07/15/2020 DISCHARGE DATE: 07/15/20 1512 VISIT LOCKED DATE TIME: PHYSICIAN: KARTHIKEYAN PENALOZA RESOURCE: KARTHIKEYAN PENALOZA REASON FOR APPOINTMENT 1. POST BILATERAL SIJ HISTORY OF PRESENT ILLNESS GENERAL: HERE FOR POST PROCEDURE FOLLOW-UP. HAD BILATERAL SIJ INJECTION ON 06/25/2020. REPORTING SOME IMPROVEMENT IN LEFT LOW BACK PAIN THAT CONTINUES TODAY BUT CONTINUES WITH SEVERE RIGHT BUTTOCK AND HIP PAIN. HISTORY OF RIGHT HIP / SIJ SURGERY IN SEPTEMBER 2017. HISTORY OF LUMBAR SURGERY IN JUNE 2018. PATIENT DOES NOT FEEL THAT SHE IMPROVED AFTER THE SURGERIES. NO RECENT IMAGING OF L/S SPINE OR RIGHT HIP. PATIENT IS VERY UNCOMFORTABLE TODAY. CHIEF AREA OF PAIN IS RIGHT HIP AND BUTTOCK AREA. -. FALL RISK SCREENING: SCREENING :NO FALLS REPORTED IN THE LAST YEAR PAIN SCREENING: PATIENT HAS A COMPLAINT OF ACUTE OR CHRONIC PAIN :YES LOCATION OF PAIN:LOW BACK, RIGHT HIP INTENSITY OF PAIN (SCALE OF 1 TO 10):7 WHAT DOES YOUR PAIN FEEL LIKE:BURNING, TENDER, THROBBING, SORE DURATION:CONTINOUS, CONSTANT PAIN IS INCREASED BY:ACTIVITIES PAIN IS DECREASED BY:OTHERS RESTING TREATMENT/MEDICATIONS USED TO MANAGE PAIN:OTC PAIN RELIEVERS LEVEL OF RELIEF FROM PAIN TREATMENTS IN THE PAST:25% PAIN HAS INTERFERED WITH THE FOLLOWING:BATHING/DRESSING, WALKING ABILITY, HOUSEWORK, SLEEP, TRANSPORTATION, TOILETING NURSING NOTE: -. PAIN CENTER INTAKE QUESTIONS: DO YOU HAVE A HISTORY OF MRSA? :NO DO YOU TAKE A BLOOD THINNERS? :NO DO YOU HAVE ANY BLEEDING DISORDERS? :NO ANY NEW NUMBNESS OR WEAKNESS IN YOUR LEGS OR ARMS? :NO ANY PACEMAKER,DEFIBRILLATOR, OR DORSAL COLUMN STIMULATOR? :NO DO YOU HAVE ANY RASHES OR OPEN SORES? :NO ARE YOU ALLERGIC TO IV DYE? :YES ARE YOU DIABETIC? :YES ANY NEW PROBLEMS WITH YOUR MEDICATIONS? :NO HAVE YOU RECEIVED A VACCINE IN THE PAST 30 DAYS? :NO DO YOU PLAN TO RECEIVE A VACCINE IN THE NEXT 21 DAYS? :NO DO YOU NEED ANY PRESCRIPTION? :NO DO YOU TAKE ANY IMMUNOSUPPRESSIVE MEDICATIONS? :NO IS THERE A CHANCE YOU COULD BE ? :NO ARE YOU BREAST FEEDING? :NO CURRENT MEDICATIONS TAKING GLIMEPIRIDE 4 MG TABLET ORAL BID TAKING VICTOZA 18 MG/3ML SOLUTION PEN-INJECTOR 1.8 SUBCUTANEOUS DAILY TAKING TRIBENZOR 40-10-25 MG TABLET ORAL DAILY TAKING FUROSEMIDE 20 MG TABLET 1 TABLE ORAL DAILY TAKING HYDRALAZINE HCL 10 MG TABLET ORAL DAILY TAKING METFORMIN HCL 500 MG TABLET BREAKFAST AND DINNER ORALLY BID TAKING CALTRATE 600+D SOFT 600-800 MG-UNIT TABLET CHEWABLE ORALLY BID TAKING VITAMIN C 500 MG CAPSULE ORALLY DAILY TAKING VITAMIN B 12 500 MCG LOZENGE 1 CAP ORALLY ONCE A DAY TAKING VITAMIN D-3 2000 CAPSULE 1 CAP ORALLY TWICE DAILY TAKING FLAX SEEDS 500 MG ORALLY BID TAKING VITAMIN E 400 UNIT CAPSULE 1 CAPSULE ORALLY ONCE A DAY TAKING ASPIR-81 81 MG TABLET DELAYED RELEASE 1 TABLET ORALLY ONCE A DAY TAKING ALENDRONATE SODIUM 35 MG TABLET 1 TABLET ORALLY MONDAY ONLY TAKING PAROXETINE HCL 10 MG TABLET 1 TABLET IN THE MORNING ORALLY ONCE A DAY TAKING VISION FORMULA/LUTEIN TABLET ORALLY TWICE DAILY TAKING PRILOSEC 20MG 20MG TABLET ORAL TWICE DAILY TAKING FISH OIL 1200 MG CAPSULE 1 CAPSULE ORALLY BID TAKING ATORVASTATIN CALCIUM 40 MG TABLET 1 TABLET ORALLY ONCE A DAY TAKING NADOLOL 40 MG TABLET 1 TABLET ORALLY ONCE A DAY TAKING BIOTENE DRY MOUTH - LOZENGE DIRECTED MOUTH/THROAT TAKING MAGNESIUM 400 MG CAPSULE DIRECTED ORALLY TAKING AMILORIDE HCL 5 MG TABLET 1 TABLET WITH FOOD ORALLY ONCE A DAY NOT-TAKING VALTREX 1 GM TABLET 1 TABLET ORALLY ONCE A DAY, NOTES: LAST WEEK NOT-TAKING METOPROLOL TARTRATE 100 MG SEMI-ELECTRIC WITH ORAL BID NOT-TAKING POTASSIUM CHLORIDE ER 10 MEQ TABLET EXTENDED RELEASE 1 TABLETS WITH FOOD ORAL BID NOT-TAKING BACLOFEN 10 MG TABLET 1//2 - 1 TABLET WITH FOOD OR MILK ORALLY THREE TIMES A DAY NOT-TAKING MELOXICAM 15 MG TABLET 1 TABLET ORALLY ONCE A DAY NOT-TAKING TRAMADOL HCL 50 MG TABLET 1 TABLET NEEDED ORALLY EVERY 6 HRS PRN PAIN MDD=3 NOT-TAKING BACLOFEN 10 MG TABLET 1/2 -1 TABLET ORALLY 3X/DAY NEEDED NOT-TAKING MELOXICAM 7.5 MG TABLET 1 TABLET ORALLY ONCE A DAY NOT-TAKING FLUTICASONE PROPIONATE 50 MCG/ACT SUSPENSION NASAL NEEDED MEDICATION LIST REVIEWED AND RECONCILED WITH THE PATIENT PAST MEDICAL HISTORY BRONCHIATUS HTN 2 CARDIAC CATHS PNEUMONIA HOME CPAP USE GERD CATARACT SURGURY BOTH EYES ANEMIA DIABETES DIVERTICULITIS ALLERGIES PENICILLIN (FOR ALLERGIES USE ONLY): RASH SULFA (FOR ALLERGY USE ONLY): HOT RASH LATEX: ITCH IVP DYE: FROM YEARS AGO /GAVE RASH ERYTHROMYCIN: RASH LISINOPRIL: COUGH - SIDE EFFECTS HYDROCODONE-ACETAMINOPHEN: NAUSEA/VOMITING - ALLERGY SURGICAL HISTORY HYSTERECTOMY 1981 CARPAL TUNNEL APPENDECTOMHY, HERNIA OR 1960 SIGMOID RESECTION 2007 LEFT BREAST BIOPSY 2004 BACK SURGERY, RODS AND SCREWS 05/23/2018 TWO RODS TO STABALIZE RIGHT HIP 09/28/17 TONSILLECTOMY FAMILY HISTORY FATHER: , DIAGNOSED WITH UNSPECIFIED HEART DISEASE MOTHER: , HYPERTENSION, UNSPECIFIED HEART DISEASE, DIABETES 3 BROTHER(S) , 5 SISTER(S) . 1 SON(S) , 1 DAUGHTER(S) - HEALTHY. SISTER WITH LUNG DISEASE DECEASED2 BROTHERS WITH HEART DISEASE. SOCIAL HISTORY GENERAL: TOBACCO USE ARE YOU A: NONSMOKER. LATEX QUESTIONNAIRE LATEX ALLERGY : HAVE YOU EVER DEVELOPED ANY TYPE OF REACTION AFTER HANDLING LATEX PRODUCTS SUCH RUBBER GLOVES, CONDOMS, DIAPHRAGMS, BALLOONS, SOCKS, OR UNDERWEAR?YES LATEX ALLERGY : HAVE YOU EVER DEVELOPED ANY TYPE OF REACTION DURING OR AFTER DENTAL APPOINTMENT, VAGINAL/RECTAL EXAMINATION, SURGICAL PROCEDURE, OR ANY OTHER EXPOSURE?NO - PLEASE INDICATE :RUBBER GLOVES, SOCKS DATE ASKED : 06/24/2020 LATEX RISK : HAVE YOU EVER HAD ANY DIFFICULTY BREATHING OR HIVES AFTER EATING OR HANDLING ANY FRUITS, OR VEGETABLES; SUCH KIWI, BANANAS, STONE FRUITS, OR CHESTNUTSNO LATEX RISK : DO YOU HAVE A PREVIOUS PERSONAL HISTORY OF MORE THAN NINE SURGERIES, SPINA BIFIDA, OR REPEATED CATHERIZATIONS? NO LATEX RISK : ARE YOU FREQUENTLY EXPOSED TO LATEX PRODUCTS IN YOUR OCCUPATION?NO ALCOHOL SCREENING DID YOU HAVE A DRINK CONTAINING ALCOHOL IN THE PAST YEAR?YES HOW OFTEN DID YOU HAVE SIX OR MORE DRINKS ON ONE OCCASION IN THE PAST YEAR?NEVER (0 POINTS) HOW MANY DRINKS DID YOU HAVE ON A TYPICAL DAY WHEN YOU WERE DRINKING IN THE PAST YEAR?1 OR 2 (0 POINTS) HOW OFTEN DID YOU HAVE A DRINK CONTAINING ALCOHOL IN THE PAST YEAR?MONTHLY OR LESS (1 POINT) POINTS1 INTERPRETATIONNEGATIVE RECREATIONAL DRUG USE DRUG USE?NO CAFFEINE CAFFEINE USE?YES HOW OFTEN AND HOW MUCH? 2-3 CUPS DAILY [employer] [id number] ANGLICAN LANGUAGE LANGUAGES SPOKEN:POLISH EDUCATION LEVEL OF EDUCATION: 11TH GRADE HS LEARNING BARRIERS / SPECIAL NEEDS BARRIERS TO LEARNING?NO HEARING IMPAIRED?NO VISION IMPAIRED?YES COGNITIVELY IMPAIRED?NO :CORRECTIVE LENSES READINESS TO LEARN?YES DOMESTIC VIOLENCE STATUS: NUMBER OF MONTHS/YEARS IN CURRENT RELATIONSHIP?USE NOTES SECTION 59 YRS DO YOU FEEL SAFE IN YOUR ENVIRONMENT?YES OCCUPATION: RETIRED CUSTOMER SERVICE. MARITAL STATUS: . OTHERS AT HOME: SPOUSE. PAIN CLINIC PFS, CLERGY, PUBLIC HEALTH REFERRALS PFS REFERRAL NEEDED?NO CLERGY REFERRAL NEEDED?NO PUBLIC HEALTH REFERRAL NEEDED?NO WAS THE PROVIDER NOTIFIED OF ANY PERTINENT INFO?NO HAS THE PATIENT BEEN EDUCATED REGARDING HIS/HER PLAN OF CARE?YES HAS THE PATIENT BEEN EDUCATED REGARDING PAIN, THE RISK FOR PAIN, THE IMPORTANCE OF EFFECTIVE PAIN MANAGEMENT, AND THE PAIN ASSESSMENT PROCESS?YES ADVANCE DIRECTIVE ADVANCE DIRECTIVE DISCUSSED WITH PATIENT:YES HCP IS LUIS ATWOOD [phone] HOSPITALIZATION/MAJOR DIAGNOSTIC PROCEDURE BACK SURGERY 05/2018 REVIEW OF SYSTEMS CONSTITUTIONAL: ANY RECENT FEVER NO . CHILLS NO . WEIGHT CHANGE OF UNKNOWN REASONS NO . GASTROENTEROLOGY: NEW UNEXPLAINABLE CHANGES IN BOWEL CONTROL NO . CONSTIPATION NO . GENITOURINARY: ANY NEW CHANGE IN BLADDER CONTROL? NO . NEUROLOGY: NEW ONSET DIZZINESS OR NEUROLOGICAL CHANGES NOT MENTIONED NO . NEW NUMBNESS OR PAIN PATTERNS NOT MENTIONED AND PERTINENT TO TODAY'S VISIT NO . CARDIOLOGY: NEW CHEST PRESSURE NO . NEW CHEST PAIN NO . RESPIRATORY: UNEXPLAINABLE COUGH NO . NEW SHORTNESS OF BREATH NO . VITAL SIGNS WT 179.4 LBS, HT 60 IN, BMI 35.03 INDEX, BP 141/61 MM HG, HR 82 /MIN, RR 16 /MIN, TEMP 98.1 F, OXYGEN SAT % 98%, SAFE IN ENV? (Y/N) Y, NA INITIALS SC 13:49, REVIEWED BY: EM. EXAMINATION GENERAL EXAMINATION: GENERAL AWAKE,ALERT ,PLEAASANT . PSYCH AFFECT NORMAL . LUNGS: LUNG [place] ARE CLEAR TO AUSCULTATION BILATERALLY. GOOD MOVEMENT OF AIR . HEART: S1, S2 IN A REGULAR RATE AND RHYTHM. NO SIGNIFICANT MURMURS, RUBS OR GALLOPS NOTED . MUSCULOSKELETAL: MUSCLE STRENGTH TESTING 4/5 BILATERAL LOWER EXTREMITIES. LUMBAR: TRIGGER POINTS:, ELICITED WITH PALPATION OVER RIGHT BUTTOCK AND RIGHT HIP. PAIN IS AGGRAVATED IN THIS REGION WITH RANGE OF JOINT MOTION OF THE SPINE.. 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 NO IMPROVEMENT OVER RIGHT SIJ OR HIP POST PROCEDURE NOTES: MRI OF THE LS-SPINE AND RIGHT HIP DUE TO UNCONTROLLED PAIN WITH HISTORY OF LOW BACK SURGERY AND RIGHT HIP/SACROILIAC JOINT SURGERY. PROCEDURE CODES [id number] ESTABILISHED PATIENT [facility] FACILITY CHARGE DISPOSITION & COMMUNICATION FOLLOW UP 4-6 WEEKS (REASON: REVIEW MRI RIGHT HIP/LUMBAR SPINE) ELECTRONICALLY SIGNED BY HEATHER KOROMA ON 07/16/2020 AT 10:30 AM EST DISCLAIMER : THIS IS A VISIT SUMMARY EXTRACTED FROM THE [employer] CHART. IT IS NOT A COPY OF THE [employer] PROGRESS NOTE. MARLINE
== END ==
LOC: M PAIN 14:00
PROVIDERS: ATTEND Nurse Practitioner Family
DX: G89.29 Other chronic pain (principal); M46.1 Sacroiliitis, not elsewhere classified; M51.26 Other intervertebral disc displacement, lumbar region; I10 Essential (primary) hypertension; K21.9 Gastro-esophageal reflux disease without esophagitis; D64.9 Anemia, unspecified; E11.9 Type 2 diabetes mellitus without complications; Z98.41 Cataract extraction status, right eye; Z98.42 Cataract extraction status, left eye; Z79.84 Long term (current) use of oral hypoglycemic drugs; Z79.899 Other long term (current) drug therapy; Z79.82 Long term (current) use of aspirin; Z88.0 Allergy status to penicillin; Z88.2 Allergy status to sulfonamides; Z88.1 Allergy status to other antibiotic agents; Z88.5 Allergy status to narcotic agent; Z88.8 Allergy status to other drugs, medicaments and biological substances; Z91.040 Latex allergy status

== ENCOUNTER → 2020-08-07 | Outpatient (CLI) | payer MEDICARE ==
--- NOTE | 2020-08-11 02:17 | ECWPNPC ---
PATIENT NAME: ADELAIDA ATWOOD : 1940 GENDER: FEMALE VISIT DATE: 08/07/2020 DISCHARGE DATE: 08/07/20 1107 VISIT LOCKED DATE TIME: PHYSICIAN: KARTHIKEYAN PENALOZA RESOURCE: KARTHIKEYAN PENALOZA REASON FOR APPOINTMENT 1. MRI RESULTS HISTORY OF PRESENT ILLNESS GENERAL: HERE FOR FOLLOW-UP OF PERSISTENT RIGHT LOW BACK, RIGHT HIP AND LEG PAIN. MRI OF THE LS-SPINE AND RIGHT HIP IS REVIEWED WITH PATIENT. MRI OF RIGHT HIP IS SHOWING EDEMA SUGGESTING A FRACTURE LEFT LOWER SACRUM ALONG SACROILIAC JOINT REGION. DISCUSSED REFERRAL TO ORTHOPEDIC GROUP FOR EVALUATION. THIS MAY BE INSIGNIFICANT. PATIENT REPORTS INTERMITTENT MILD LEFT LOW BACK PAIN. CHIEF COMPLAINT IS RIGHT PAIN. RIGHT HIP OTHERWISE IS REVIEWED NORMAL.-. FALL RISK SCREENING: SCREENING :NO FALLS REPORTED IN THE LAST YEAR PAIN SCREENING: PATIENT HAS A COMPLAINT OF ACUTE OR CHRONIC PAIN :YES LOCATION OF PAIN:LOW BACK INTENSITY OF PAIN (SCALE OF 1 TO 10):6 WHAT DOES YOUR PAIN FEEL LIKE:STABBING, SHOOTING DURATION:CONTINOUS, CONSTANT PAIN IS INCREASED BY:ACTIVITIES PAIN IS DECREASED BY:OTHERS PILLOW POSITIONING @ HS TREATMENT/MEDICATIONS USED TO MANAGE PAIN:NONE LEVEL OF RELIEF FROM PAIN TREATMENTS IN THE PAST:0% PAIN HAS INTERFERED WITH THE FOLLOWING:BATHING/DRESSING, WALKING ABILITY, HOUSEWORK, TRANSPORTATION, TOILETING NURSING NOTE: -. PAIN CENTER INTAKE QUESTIONS: DO YOU HAVE A HISTORY OF MRSA? :NO DO YOU TAKE A BLOOD THINNERS? :NO DO YOU HAVE ANY BLEEDING DISORDERS? :NO ANY NEW NUMBNESS OR WEAKNESS IN YOUR LEGS OR ARMS? :YES BILAT FEET NUMB ANY PACEMAKER,DEFIBRILLATOR, OR DORSAL COLUMN STIMULATOR? :NO DO YOU HAVE ANY RASHES OR OPEN SORES? :NO ARE YOU ALLERGIC TO IV DYE? :NO ARE YOU DIABETIC? :YES ANY NEW PROBLEMS WITH YOUR MEDICATIONS? :NO HAVE YOU RECEIVED A VACCINE IN THE PAST 30 DAYS? :NO DO YOU PLAN TO RECEIVE A VACCINE IN THE NEXT 21 DAYS? :NO DO YOU NEED ANY PRESCRIPTION? :NO DO YOU TAKE ANY IMMUNOSUPPRESSIVE MEDICATIONS? :NO IS THERE A CHANCE YOU COULD BE ? :NO ARE YOU BREAST FEEDING? :NO CURRENT MEDICATIONS TAKING GLIMEPIRIDE 4 MG TABLET ORAL BID TAKING VICTOZA 18 MG/3ML SOLUTION PEN-INJECTOR 1.8 SUBCUTANEOUS DAILY TAKING TRIBENZOR 40-10-25 MG TABLET ORAL DAILY TAKING FUROSEMIDE 20 MG TABLET 1 TABLE ORAL DAILY TAKING HYDRALAZINE HCL 10 MG TABLET ORAL DAILY TAKING METFORMIN HCL 500 MG TABLET BREAKFAST AND DINNER ORALLY BID TAKING CALTRATE 600+D SOFT 600-800 MG-UNIT TABLET CHEWABLE ORALLY BID TAKING VITAMIN C 500 MG CAPSULE ORALLY DAILY TAKING VITAMIN B 12 500 MCG LOZENGE 1 CAP ORALLY ONCE A DAY TAKING VITAMIN D-3 2000 CAPSULE 1 CAP ORALLY TWICE DAILY TAKING FLAX SEEDS 500 MG ORALLY BID TAKING VITAMIN E 400 UNIT CAPSULE 1 CAPSULE ORALLY ONCE A DAY TAKING ASPIR-81 81 MG TABLET DELAYED RELEASE 1 TABLET ORALLY ONCE A DAY TAKING ALENDRONATE SODIUM 35 MG TABLET 1 TABLET ORALLY MONDAY ONLY TAKING PAROXETINE HCL 10 MG TABLET 1 TABLET IN THE MORNING ORALLY ONCE A DAY TAKING VISION FORMULA/LUTEIN TABLET ORALLY TWICE DAILY TAKING PRILOSEC 20MG 20MG TABLET ORAL TWICE DAILY TAKING FISH OIL 1200 MG CAPSULE 1 CAPSULE ORALLY BID TAKING ATORVASTATIN CALCIUM 40 MG TABLET 1 TABLET ORALLY ONCE A DAY TAKING NADOLOL 40 MG TABLET 1 TABLET ORALLY ONCE A DAY TAKING BIOTENE DRY MOUTH - LOZENGE DIRECTED MOUTH/THROAT TAKING MAGNESIUM 400 MG CAPSULE DIRECTED ORALLY TAKING AMILORIDE HCL 5 MG TABLET 1 TABLET WITH FOOD ORALLY ONCE A DAY NOT-TAKING VALTREX 1 GM TABLET 1 TABLET ORALLY ONCE A DAY, NOTES: LAST WEEK NOT-TAKING METOPROLOL TARTRATE 100 MG SEMI-ELECTRIC WITH ORAL BID NOT-TAKING POTASSIUM CHLORIDE ER 10 MEQ TABLET EXTENDED RELEASE 1 TABLETS WITH FOOD ORAL BID NOT-TAKING BACLOFEN 10 MG TABLET 1//2 - 1 TABLET WITH FOOD OR MILK ORALLY THREE TIMES A DAY NOT-TAKING MELOXICAM 15 MG TABLET 1 TABLET ORALLY ONCE A DAY NOT-TAKING TRAMADOL HCL 50 MG TABLET 1 TABLET NEEDED ORALLY EVERY 6 HRS PRN PAIN MDD=3 NOT-TAKING BACLOFEN 10 MG TABLET 1/2 -1 TABLET ORALLY 3X/DAY NEEDED NOT-TAKING MELOXICAM 7.5 MG TABLET 1 TABLET ORALLY ONCE A DAY NOT-TAKING FLUTICASONE PROPIONATE 50 MCG/ACT SUSPENSION NASAL NEEDED MEDICATION LIST REVIEWED AND RECONCILED WITH THE PATIENT PAST MEDICAL HISTORY BRONCHIATUS HTN 2 CARDIAC CATHS PNEUMONIA HOME CPAP USE GERD CATARACT SURGURY BOTH EYES ANEMIA DIABETES DIVERTICULITIS RIGHT BREAST NODULE ALLERGIES PENICILLIN (FOR ALLERGIES USE ONLY): RASH SULFA (FOR ALLERGY USE ONLY): HOT RASH LATEX: ITCH IVP DYE: FROM YEARS AGO /GAVE RASH ERYTHROMYCIN: RASH LISINOPRIL: COUGH - SIDE EFFECTS HYDROCODONE-ACETAMINOPHEN: NAUSEA/VOMITING - ALLERGY SURGICAL HISTORY HYSTERECTOMY 1981 CARPAL TUNNEL APPENDECTOMHY, HERNIA OR 1960 SIGMOID RESECTION 2007 LEFT BREAST BIOPSY 2004 BACK SURGERY, RODS AND SCREWS 05/23/2018 TWO RODS TO STABALIZE RIGHT HIP 09/28/17 TONSILLECTOMY FAMILY HISTORY FATHER: , DIAGNOSED WITH UNSPECIFIED HEART DISEASE MOTHER: , DIABETES, HYPERTENSION, UNSPECIFIED HEART DISEASE 3 BROTHER(S) , 5 SISTER(S) . 1 SON(S) , 1 DAUGHTER(S) - HEALTHY. SISTER WITH LUNG DISEASE DECEASED2 BROTHERS WITH HEART DISEASE. SOCIAL HISTORY GENERAL: TOBACCO USE ARE YOU A: NONSMOKER. LATEX QUESTIONNAIRE LATEX ALLERGY : HAVE YOU EVER DEVELOPED ANY TYPE OF REACTION AFTER HANDLING LATEX PRODUCTS SUCH RUBBER GLOVES, CONDOMS, DIAPHRAGMS, BALLOONS, SOCKS, OR UNDERWEAR?YES LATEX ALLERGY : HAVE YOU EVER DEVELOPED ANY TYPE OF REACTION DURING OR AFTER DENTAL APPOINTMENT, VAGINAL/RECTAL EXAMINATION, SURGICAL PROCEDURE, OR ANY OTHER EXPOSURE?NO - PLEASE INDICATE :RUBBER GLOVES, SOCKS DATE ASKED : 06/24/2020 LATEX RISK : HAVE YOU EVER HAD ANY DIFFICULTY BREATHING OR HIVES AFTER EATING OR HANDLING ANY FRUITS, OR VEGETABLES; SUCH KIWI, BANANAS, STONE FRUITS, OR CHESTNUTSNO LATEX RISK : DO YOU HAVE A PREVIOUS PERSONAL HISTORY OF MORE THAN NINE SURGERIES, SPINA BIFIDA, OR REPEATED CATHERIZATIONS? NO LATEX RISK : ARE YOU FREQUENTLY EXPOSED TO LATEX PRODUCTS IN YOUR OCCUPATION?NO ALCOHOL SCREENING DID YOU HAVE A DRINK CONTAINING ALCOHOL IN THE PAST YEAR?YES HOW OFTEN DID YOU HAVE SIX OR MORE DRINKS ON ONE OCCASION IN THE PAST YEAR?NEVER (0 POINTS) HOW MANY DRINKS DID YOU HAVE ON A TYPICAL DAY WHEN YOU WERE DRINKING IN THE PAST YEAR?1 OR 2 (0 POINTS) HOW OFTEN DID YOU HAVE A DRINK CONTAINING ALCOHOL IN THE PAST YEAR?MONTHLY OR LESS (1 POINT) POINTS1 INTERPRETATIONNEGATIVE RECREATIONAL DRUG USE DRUG USE?NO CAFFEINE CAFFEINE USE?YES HOW OFTEN AND HOW MUCH? 2-3 CUPS DAILY [facility] [id number] [employer] LANGUAGE LANGUAGES SPOKEN:URDU EDUCATION LEVEL OF EDUCATION: 11TH GRADE HS LEARNING BARRIERS / SPECIAL NEEDS BARRIERS TO LEARNING?NO HEARING IMPAIRED?NO VISION IMPAIRED?YES COGNITIVELY IMPAIRED?NO :CORRECTIVE LENSES READINESS TO LEARN?YES DOMESTIC VIOLENCE STATUS: NUMBER OF MONTHS/YEARS IN CURRENT RELATIONSHIP?USE NOTES SECTION 57 YRS DO YOU FEEL SAFE IN YOUR ENVIRONMENT?YES OCCUPATION: RETIRED CUSTOMER SERVICE. MARITAL STATUS: . OTHERS AT HOME: SPOUSE. PAIN CLINIC PFS, CLERGY, PUBLIC HEALTH REFERRALS PFS REFERRAL NEEDED?NO CLERGY REFERRAL NEEDED?NO PUBLIC HEALTH REFERRAL NEEDED?NO WAS THE PROVIDER NOTIFIED OF ANY PERTINENT INFO?NO HAS THE PATIENT BEEN EDUCATED REGARDING HIS/HER PLAN OF CARE?YES HAS THE PATIENT BEEN EDUCATED REGARDING PAIN, THE RISK FOR PAIN, THE IMPORTANCE OF EFFECTIVE PAIN MANAGEMENT, AND THE PAIN ASSESSMENT PROCESS?YES ADVANCE DIRECTIVE ADVANCE DIRECTIVE DISCUSSED WITH PATIENT:YES HCP IS LUIS ATWOOD [phone] HOSPITALIZATION/MAJOR DIAGNOSTIC PROCEDURE BACK SURGERY 05/2018 REVIEW OF SYSTEMS CONSTITUTIONAL: ANY RECENT FEVER NO . CHILLS NO . WEIGHT CHANGE OF UNKNOWN REASONS NO . GASTROENTEROLOGY: NEW UNEXPLAINABLE CHANGES IN BOWEL CONTROL NO . CONSTIPATION NO . GENITOURINARY: ANY NEW CHANGE IN BLADDER CONTROL? NO . NEUROLOGY: NEW ONSET DIZZINESS OR NEUROLOGICAL CHANGES NOT MENTIONED NO . NEW NUMBNESS OR PAIN PATTERNS NOT MENTIONED AND PERTINENT TO TODAY'S VISIT NO . CARDIOLOGY: NEW CHEST PRESSURE NO . NEW CHEST PAIN NO . RESPIRATORY: UNEXPLAINABLE COUGH NO . NEW SHORTNESS OF BREATH NO . VITAL SIGNS WT 179.6 LBS, HT 60 IN, BMI 35.07 INDEX, BP 131/60 MM HG, HR 85 /MIN, RR 16 /MIN, TEMP 97.5 F, OXYGEN SAT % 98%, SAFE IN ENV? (Y/N) Y, NA INITIALS CO 09:59, REVIEWED BY: ISAAC. EXAMINATION GENERAL EXAMINATION: GENERAL AWAKE,ALERT ,PLEAASANT . PSYCH AFFECT NORMAL . LUNGS: LUNG [place] ARE CLEAR TO AUSCULTATION BILATERALLY. GOOD MOVEMENT OF AIR . HEART: S1, S2 IN A REGULAR RATE AND RHYTHM. NO SIGNIFICANT MURMURS, RUBS OR GALLOPS NOTED . MUSCULOSKELETAL: MUSCLE STRENGTH TESTING 4/5 BILATERAL LOWER EXTREMITIES. LUMBAR: TRIGGER POINTS:, ELICITED WITH PALPATION OVER RIGHT BUTTOCK AND RIGHT HIP. PAIN IS AGGRAVATED IN THIS REGION WITH RANGE OF JOINT MOTION OF THE SPINE.. ASSESSMENTS RIGHT HIP PAIN - M25.551 (PRIMARY) SACROILIITIS, NOT ELSEWHERE CLASSIFIED - M46.1, RISK: (NULL) LUMBAR DISC DISPLACEMENT WITHOUT MYELOPATHY - M51.26 TREATMENT RIGHT HIP PAIN [facility]:LOW BACK PAIN,RIGHT HIP PAIN,ABNORMAL MRI RIGHT HIP 07/23/2020 PROCEDURE CODES FA211 ESTABILISHED PATIENT [facility] CHARGE DISPOSITION & COMMUNICATION FOLLOW UP 3 MONTHS (REASON: F[facility]/RIGHT HIP PAIN/LEFT SACRAL/SIJ FRACTURE ABNORMAL MRI) ELECTRONICALLY SIGNED BY HEATHER KOROMA ON 08/10/2020 AT 10:58 AM EST DISCLAIMER : THIS IS A VISIT SUMMARY EXTRACTED FROM THE [employer] CHART. IT IS NOT A COPY OF THE [employer] PROGRESS NOTE. MARLINE
== END ==
LOC: M PAIN 10:00
PROVIDERS: ATTEND Nurse Practitioner Family
DX: M25.551 Pain in right hip (principal); M46.1 Sacroiliitis, not elsewhere classified; M51.26 Other intervertebral disc displacement, lumbar region; I10 Essential (primary) hypertension; K21.9 Gastro-esophageal reflux disease without esophagitis; D64.9 Anemia, unspecified; E11.9 Type 2 diabetes mellitus without complications; Z79.82 Long term (current) use of aspirin; Z79.84 Long term (current) use of oral hypoglycemic drugs; Z79.899 Other long term (current) drug therapy; Z88.0 Allergy status to penicillin; Z88.2 Allergy status to sulfonamides; Z88.1 Allergy status to other antibiotic agents; Z88.5 Allergy status to narcotic agent; Z91.040 Latex allergy status

== ENCOUNTER → 2020-11-05 | Outpatient (CLI) | payer MEDICARE ==
--- NOTE | 2020-11-13 06:16 | ECWPNPC ---
PATIENT NAME: ADELAIDA ATWOOD : 1940 GENDER: FEMALE VISIT DATE: 11/05/2020 DISCHARGE DATE: 11/05/20 1000 VISIT LOCKED DATE TIME: PHYSICIAN: KARTHIKEYAN PENALOZA RESOURCE: KARTHIKEYAN PENALOZA REASON FOR APPOINTMENT 1. F/U [facility]/RIGHT HIP PAIN/LEFT SACRAL/SIJ FRACTURE ABNORMAL MRI HISTORY OF PRESENT ILLNESS GENERAL: HERE FOR FOLLOW-UP OF PERSISTENT LOW BACK PAIN. [facility] PER MY REFERRAL FOR QUESTIONABLE INSUFFICIENCY FRACTURE IN THE PELVIS. SHE WILL BE FOLLOWING WITH A SPECIALIST PER REFERRAL OF [facility]. CHIEF AREA OF PAIN IS RIGHT LOW BACK. [facility] IS SUGGESTING THAT WE DO A RIGHT FACET BLOCK THERAPEUTIC NOT ONLY FOR TREATMENT PURPOSES BUT FOR DIAGNOSTIC PURPOSES. WILL BE HAVING HER SECOND COVID VACCINATION AT THE END OF THIS MONTH. WE WILL HAVE TO SCHEDULE PROCEDURE MID DECEMBER.-. FALL RISK SCREENING: SCREENING : NO FALLS REPORTED IN THE LAST YEAR. PAIN SCREENING: PATIENT HAS A COMPLAINT OF ACUTE OR CHRONIC PAIN :YES LOCATION OF PAIN:RIGHT HIP LOW BACK INTENSITY OF PAIN (SCALE OF 1 TO 10):5 WHAT DOES YOUR PAIN FEEL LIKE:TENDER, SORE DURATION:CONTINOUS, CONSTANT, ALL DAY PAIN IS INCREASED BY:ACTIVITIES PAIN IS DECREASED BY:OTHERS PPUTTING A PILLOW THERE NURSING NOTE: -. PAIN CENTER INTAKE QUESTIONS: DO YOU HAVE A HISTORY OF MRSA? :NO DO YOU TAKE A BLOOD THINNERS? :NO DO YOU HAVE ANY BLEEDING DISORDERS? :NO ANY NEW NUMBNESS OR WEAKNESS IN YOUR LEGS OR ARMS? :YES BILAT FEET NUMB ANY PACEMAKER,DEFIBRILLATOR, OR DORSAL COLUMN STIMULATOR? :NO DO YOU HAVE ANY RASHES OR OPEN SORES? :NO ARE YOU ALLERGIC TO IV DYE? :NO ARE YOU DIABETIC? :YES ANY NEW PROBLEMS WITH YOUR MEDICATIONS? :NO HAVE YOU RECEIVED A VACCINE IN THE PAST 30 DAYS? :YES IF SO WHAT VACCINE AND WHEN? COVID 10/29/2020 DO YOU PLAN TO RECEIVE A VACCINE IN THE NEXT 21 DAYS? :YES IF SO WHAT VACCINE AND WHEN? COVID 11/26/2020 DO YOU NEED ANY PRESCRIPTION? :NO DO YOU TAKE ANY IMMUNOSUPPRESSIVE MEDICATIONS? :YES ALLOPURINOL IS THERE A CHANCE YOU COULD BE ? :NO ARE YOU BREAST FEEDING? :NO CURRENT MEDICATIONS TAKING GLIMEPIRIDE 4 MG TABLET ORAL BID TAKING VICTOZA 18 MG/3ML SOLUTION PEN-INJECTOR 1.8 SUBCUTANEOUS DAILY TAKING TRIBENZOR 40-10-25 MG TABLET ORAL DAILY TAKING FUROSEMIDE 20 MG TABLET 1 TABLE ORAL DAILY TAKING HYDRALAZINE HCL 10 MG TABLET ORAL DAILY TAKING METFORMIN HCL 500 MG TABLET BREAKFAST AND DINNER ORALLY BID TAKING CALTRATE 600+D SOFT 600-800 MG-UNIT TABLET CHEWABLE ORALLY BID TAKING VITAMIN C 500 MG CAPSULE ORALLY DAILY TAKING VITAMIN B 12 500 MCG LOZENGE 1 CAP ORALLY ONCE A DAY TAKING VITAMIN D-3 2000 CAPSULE 1 CAP ORALLY TWICE DAILY TAKING FLAX SEEDS 500 MG ORALLY BID TAKING VITAMIN E 400 UNIT CAPSULE 1 CAPSULE ORALLY ONCE A DAY TAKING ASPIR-81 81 MG TABLET DELAYED RELEASE 1 TABLET ORALLY ONCE A DAY TAKING ALENDRONATE SODIUM 35 MG TABLET 1 TABLET ORALLY MONDAY ONLY TAKING PAROXETINE HCL 10 MG TABLET 1 TABLET IN THE MORNING ORALLY ONCE A DAY TAKING VISION FORMULA/LUTEIN TABLET ORALLY TWICE DAILY TAKING PRILOSEC 20MG 20MG TABLET ORAL TWICE DAILY TAKING FISH OIL 1200 MG CAPSULE 1 CAPSULE ORALLY BID TAKING ATORVASTATIN CALCIUM 40 MG TABLET 1 TABLET ORALLY ONCE A DAY TAKING NADOLOL 40 MG TABLET 1 TABLET ORALLY ONCE A DAY TAKING BIOTENE DRY MOUTH - LOZENGE DIRECTED MOUTH/THROAT TAKING MAGNESIUM 400 MG CAPSULE DIRECTED ORALLY 2 A DAY TAKING ALLOPURINOL 100 MG TABLET 1 TABLET ORALLY ONCE A DAY NOT-TAKING AMILORIDE HCL 5 MG TABLET 1 TABLET WITH FOOD ORALLY ONCE A DAY NOT-TAKING VALTREX 1 GM TABLET 1 TABLET ORALLY ONCE A DAY, NOTES: LAST WEEK NOT-TAKING METOPROLOL TARTRATE 100 MG SEMI-ELECTRIC WITH ORAL BID NOT-TAKING POTASSIUM CHLORIDE ER 10 MEQ TABLET EXTENDED RELEASE 1 TABLETS WITH FOOD ORAL BID NOT-TAKING BACLOFEN 10 MG TABLET 1//2 - 1 TABLET WITH FOOD OR MILK ORALLY THREE TIMES A DAY NOT-TAKING MELOXICAM 15 MG TABLET 1 TABLET ORALLY ONCE A DAY NOT-TAKING TRAMADOL HCL 50 MG TABLET 1 TABLET NEEDED ORALLY EVERY 6 HRS PRN PAIN MDD=3 NOT-TAKING BACLOFEN 10 MG TABLET 1/2 -1 TABLET ORALLY 3X/DAY NEEDED NOT-TAKING MELOXICAM 7.5 MG TABLET 1 TABLET ORALLY ONCE A DAY NOT-TAKING FLUTICASONE PROPIONATE 50 MCG/ACT SUSPENSION NASAL NEEDED MEDICATION LIST REVIEWED AND RECONCILED WITH THE PATIENT PAST MEDICAL HISTORY BRONCHIATUS HTN 2 CARDIAC CATHS PNEUMONIA HOME CPAP USE GERD CATARACT SURGURY BOTH EYES ANEMIA DIABETES DIVERTICULITIS RIGHT BREAST NODULE UTI ALLERGIES PENICILLIN (FOR ALLERGIES USE ONLY): RASH SULFA (FOR ALLERGY USE ONLY): HOT RASH LATEX: ITCH IVP DYE: FROM YEARS AGO /GAVE RASH ERYTHROMYCIN: RASH LISINOPRIL: COUGH - SIDE EFFECTS HYDROCODONE-ACETAMINOPHEN: NAUSEA/VOMITING - ALLERGY SURGICAL HISTORY HYSTERECTOMY 1981 CARPAL TUNNEL APPENDECTOMHY, HERNIA OR 1960 SIGMOID RESECTION 2007 LEFT BREAST BIOPSY 2004 BACK SURGERY, RODS AND SCREWS 05/23/2018 TWO RODS TO STABALIZE RIGHT HIP 09/28/17 TONSILLECTOMY SOCIAL HISTORY GENERAL: TOBACCO USE ARE YOU A: NONSMOKER. LATEX QUESTIONNAIRE LATEX ALLERGY : HAVE YOU EVER DEVELOPED ANY TYPE OF REACTION AFTER HANDLING LATEX PRODUCTS SUCH RUBBER GLOVES, CONDOMS, DIAPHRAGMS, BALLOONS, SOCKS, OR UNDERWEAR?YES - PLEASE INDICATE :RUBBER GLOVES, SOCKS LATEX ALLERGY : HAVE YOU EVER DEVELOPED ANY TYPE OF REACTION DURING OR AFTER DENTAL APPOINTMENT, VAGINAL/RECTAL EXAMINATION, SURGICAL PROCEDURE, OR ANY OTHER EXPOSURE?NO LATEX RISK : HAVE YOU EVER HAD ANY DIFFICULTY BREATHING OR HIVES AFTER EATING OR HANDLING ANY FRUITS, OR VEGETABLES; SUCH KIWI, BANANAS, STONE FRUITS, OR CHESTNUTSNO LATEX RISK : DO YOU HAVE A PREVIOUS PERSONAL HISTORY OF MORE THAN NINE SURGERIES, SPINA BIFIDA, OR REPEATED CATHERIZATIONS? NO LATEX RISK : ARE YOU FREQUENTLY EXPOSED TO LATEX PRODUCTS IN YOUR OCCUPATION?NO DATE ASKED : 11/05/2020 ALCOHOL USE: NO. ALCOHOL SCREENING DID YOU HAVE A DRINK CONTAINING ALCOHOL IN THE PAST YEAR?YES HOW OFTEN DID YOU HAVE SIX OR MORE DRINKS ON ONE OCCASION IN THE PAST YEAR?NEVER (0 POINTS) HOW MANY DRINKS DID YOU HAVE ON A TYPICAL DAY WHEN YOU WERE DRINKING IN THE PAST YEAR?1 OR 2 (0 POINTS) HOW OFTEN DID YOU HAVE A DRINK CONTAINING ALCOHOL IN THE PAST YEAR?MONTHLY OR LESS (1 POINT) POINTS1 INTERPRETATIONNEGATIVE RECREATIONAL DRUG USE DRUG USE?NO CAFFEINE CAFFEINE USE?YES HOW OFTEN AND HOW MUCH? 2-3 CUPS DAILY [employer] [id number] [employer] LANG[employer] LANGUAGES SPOKEN:[place] EDUCATION LEVEL OF EDUCATION: 11TH GRADE HS LEARNING BARRIERS / SPECIAL NEEDS CHANGE FROM LAST VISIT?YES BARRIERS TO LEARNING?NO HEARING IMPAIRED?NO VISION IMPAIRED?YES :CORRECTIVE LENSES COGNITIVELY IMPAIRED?NO READINESS TO LEARN?YES LEARNING PREFERENCES?YES :DEMONSTRATION/VERBAL INSTRUCTION LEARNING CAPABILITIES PRESENT?YES EMOTIONAL BARRIERS?NO SPECIAL DEVICES?NO ORACLE SOFTWARE ENGINEER NEEDED?NO DOMESTIC VIOLENCE STATUS: NUMBER OF MONTHS/YEARS IN CURRENT RELATIONSHIP?USE NOTES SECTION 57 YRS DO YOU FEEL SAFE IN YOUR ENVIRONMENT?YES OCCUPATION: RETIRED CUSTOMER SERVICE. MARITAL STATUS: . OTHERS AT HOME: SPOUSE. - PFS REFERRAL NEEDED?NO CLERGY REFERRAL NEEDED?NO PUBLIC HEALTH REFERRAL NEEDED?NO WAS THE PROVIDER NOTIFIED OF ANY PERTINENT INFO?NO HAS THE PATIENT BEEN EDUCATED REGARDING HIS/HER PLAN OF CARE?YES HAS THE PATIENT BEEN EDUCATED REGARDING PAIN, THE RISK FOR PAIN, THE IMPORTANCE OF EFFECTIVE PAIN MANAGEMENT, AND THE PAIN ASSESSMENT PROCESS?YES ADVANCE DIRECTIVE ADVANCE DIRECTIVE DISCUSSED WITH PATIENT:YES HCP IS LUIS ATWOOD [phone] HOSPITALIZATION/MAJOR DIAGNOSTIC PROCEDURE BACK SURGERY 05/2018 REVIEW OF SYSTEMS CONSTITUTIONAL: ANY RECENT FEVER NO . CHILLS NO . WEIGHT CHANGE OF UNKNOWN REASONS NO . GASTROENTEROLOGY: NEW UNEXPLAINABLE CHANGES IN BOWEL CONTROL NO . CONSTIPATION NO . GENITOURINARY: ANY NEW CHANGE IN BLADDER CONTROL? NO. REPORTS KIDNEY INFECTION A FEW MONTHS AGO. . NEUROLOGY: NEW ONSET DIZZINESS OR NEUROLOGICAL CHANGES NOT MENTIONED NO . NEW NUMBNESS OR PAIN PATTERNS NOT MENTIONED AND PERTINENT TO TODAY'S VISIT NO . CARDIOLOGY: NEW CHEST PRESSURE NO . PATIENT DENIES NO . RESPIRATORY: UNEXPLAINABLE COUGH NO . NEW SHORTNESS OF BREATH NO . VITAL SIGNS WT 182.4 LBS, HT 60 IN, BMI 35.62 INDEX, BP 187/79 MM HG, HR 89 /MIN, RR 16 /MIN, TEMP 97.7 F, OXYGEN SAT % 95%, SAFE IN ENV? (Y/N) YES, NA INITIALS VA 09:17T.KATERYNA ALSTON. EXAMINATION GENERAL EXAMINATION: GENERALNO ACUTE DISTRESS, WELL NOURISHED AND HYDRATED. PSYCHAPPROPRIATE MOOD AND AFFECT . LUNGS:CLEAR TO AUSCULTATION BILATERALLY, NO WHEEZES, RHONCHI, RALES. HEART:NO MURMURS, REGULAR RATE AND RHYTHM. LUMBAR:SPECIFIC FACET TENDERNESS BILATERAL LOW BACK RIGHT GREATER THAN LEFT. PAIN IS AGGRAVATED BY EXTENSION OF SPINE AND FACET LOADING . ASSESSMENTS SPONDYLOSIS WITHOUT MYELOPATHY OR RADICULOPATHY, LUMBAR REGION - M47.816 (PRIMARY) TREATMENT SPONDYLOSIS WITHOUT MYELOPATHY OR RADICULOPATHY, LUMBAR REGION MED: PAIN BENADRYL TAB 25MG ORALLY DIPHENHYDRAMINE (ORDERED FOR 11/12/2020) NOTES: RIGHT THERAPEUTIC LUMBAR FACET BLOCK L3-4,L4-5,L5-S1. THIS WILL BE SCHEDULED MID DECEMBER DUE TO COVID 19 IMMUNIZATION PRINTED AND REVIEWED PRE PROCEDURE WITH PATIENT TALON. PROCEDURE CODES FA211 ESTABILISHED PATIENT [facility] FACILITY CHARGE DISPOSITION & COMMUNICATION FOLLOW UP POST PROCEDURE/SCHEDULE PROCEDURE December DUE TO COVID 19 VACCINATION (REASON: RIGHT THERAPEUTIC LUMBAR FACET BLOCK L3-4,L4-5,L5-S1) ELECTRONICALLY SIGNED BY HEATHER KOROMA ON 11/12/2020 AT 09:43 AM EST DISCLAIMER : THIS IS A VISIT SUMMARY EXTRACTED FROM THE [employer] CHART. IT IS NOT A COPY OF THE [employer] PROGRESS NOTE. MTDD
== END ==
LOC: M PAIN 09:15
PROVIDERS: ATTEND Nurse Practitioner Family
DX: M47.816 Spondylosis without myelopathy or radiculopathy, lumbar region (principal); E11.9 Type 2 diabetes mellitus without complications; K21.9 Gastro-esophageal reflux disease without esophagitis; Z88.0 Allergy status to penicillin; Z88.1 Allergy status to other antibiotic agents; Z88.2 Allergy status to sulfonamides; Z88.5 Allergy status to narcotic agent; Z88.8 Allergy status to other drugs, medicaments and biological substances; Z91.040 Latex allergy status; Z91.041 Radiographic dye allergy status; Z79.82 Long term (current) use of aspirin; Z79.84 Long term (current) use of oral hypoglycemic drugs; Z79.899 Other long term (current) drug therapy

== ENCOUNTER → 2020-12-09 | Outpatient (CLI) | payer MEDICARE | LOC: M LABSMTC 10:24 | PROVIDERS: ATTEND Anesthesiology | DX: Z11.52 Encounter for screening for COVID-19 (principal) ==

== ENCOUNTER → 2020-12-14 | Outpatient (CLI) | payer MEDICARE ==
[~2020-12-14] MED LIST changes: +BUPIVACAINE HCL 0.25% 30ML VIAL As Ordered ONE; +ISOVUE-M 300 61% 15ML VIAL As Ordered ONE; +LIDOCAINE 1% SDV 30ML VIAL As Ordered ONE; +TRIAMCINOLONE ACETONIDE SUSP 40 MG/ML VIAL (J3301) As Ordered ONE; +diphenhydrAMINE 25MG CAP As Ordered ONE
--- NOTE | 2020-12-14 11:20 | REP ---
INDICATION: PAIN. COMPARISON: None. TECHNIQUE: Two C-arm views lower lumbar spine. FINDINGS: Metallic fixation is seen in the lower lumbar spine. There are needles along the lower lumbar facet joints bilaterally. IMPRESSION: 38 seconds of fluoroscopy time is utilized. <Electronically signed by Phoenix Mera > 12/14/20 1119
--- NOTE | 2020-12-17 01:07 | ECWPNPC ---
PATIENT NAME: ADELAIDA ATWOOD : 1940 GENDER: FEMALE VISIT DATE: 12/14/2020 DISCHARGE DATE: 12/14/20 1043 VISIT LOCKED DATE TIME: PHYSICIAN: MICHELLE BELTRAN MD RESOURCE: MICHELLE BELTRAN MD REASON FOR APPOINTMENT 1. BILATERAL THERAPEUTIC LUMBAR FACET BLOCK L3-L4, L4-L5 HISTORY OF PRESENT ILLNESS GENERAL: -. FALL RISK SCREENING: SCREENING : NO FALLS REPORTED IN THE LAST YEAR. PAIN SCREENING: PATIENT HAS A COMPLAINT OF ACUTE OR CHRONIC PAIN :YES LOCATION OF PAIN:LOW BACK, LEFT HIP, RIGHT HIP INTENSITY OF PAIN (SCALE OF 1 TO 10):6 WHAT DOES YOUR PAIN FEEL LIKE:BURNING, SHARP, TENDER DURATION:CONTINOUS PAIN IS INCREASED BY:ACTIVITIES, PROLONGED STANDING PAIN IS DECREASED BY:OTHERS RESTING NURSING NOTE: -. PAIN CENTER INTAKE QUESTIONS: DO YOU HAVE A HISTORY OF MRSA? :NO DO YOU TAKE A BLOOD THINNERS? :NO DO YOU HAVE ANY BLEEDING DISORDERS? :NO ANY NEW NUMBNESS OR WEAKNESS IN YOUR LEGS OR ARMS? :NO ANY PACEMAKER,DEFIBRILLATOR, OR DORSAL COLUMN STIMULATOR? :NO DO YOU HAVE ANY RASHES OR OPEN SORES? :NO ARE YOU ALLERGIC TO IV DYE? :YES HAD BENADRYL DURING LAST PROCEDURE ARE YOU DIABETIC? :YES ANY NEW PROBLEMS WITH YOUR MEDICATIONS? :NO HAVE YOU RECEIVED A VACCINE IN THE PAST 30 DAYS? :YES HAD 2ND COVID VACCINE 11/27/20 DO YOU PLAN TO RECEIVE A VACCINE IN THE NEXT 21 DAYS? :NO DO YOU TAKE ANY IMMUNOSUPPRESSIVE MEDICATIONS? :YES ALLOPURINOL ANY HISTORY OF SEIZURES? :NO ANY HISTORY OF CARDIAC ISSUES OR EVENTS? :NO DO YOU HAVE ANY KIDNEY OR LIVER DISEASE? 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 :YES DO YOU WEAR A CPAP?YES ANY RECENT HEAD INJURY? :NO DO YOU HAVE ANY NEW INFECTIONS? :NO IS THERE A CHANCE YOU COULD BE ? :NO ARE YOU BREAST FEEDING? :NO WHEN DID YOU LAST EAT? : -12/13 1900 WHEN DID YOU LAST DRINK? : -12/14 06 WHAT DID YOU LAST DRINK? : -WATER AND APPLE JUICE NAME OF PERSON DRIVING YOU HOME? : - BRYANT DO YOU HAVE ANY OTHER QUESTIONS OR CONCERNS? : -NO CURRENT MEDICATIONS TAKING VICTOZA 18 MG/3ML SOLUTION PEN-INJECTOR 1.8 SUBCUTANEOUS DAILY, NOTES: 12/13 TAKING TRIBENZOR 40-10-25 MG TABLET ORAL DAILY, NOTES: 12/14 599 TAKING FUROSEMIDE 20 MG TABLET 1 TABLE ORAL DAILY, NOTES: 12/13 TAKING HYDRALAZINE HCL 10 MG TABLET ORAL DAILY, NOTES: 12/14 599 TAKING METFORMIN HCL 500 MG TABLET BREAKFAST AND DINNER ORALLY ONCE A DAY, NOTES: 12/13 TAKING CALTRATE 600+D SOFT 600-800 MG-UNIT TABLET CHEWABLE ORALLY BID TAKING VITAMIN C 500 MG CAPSULE ORALLY DAILY TAKING VITAMIN B 12 500 MCG LOZENGE 1 CAP ORALLY ONCE A DAY TAKING VITAMIN D-3 2000 CAPSULE 1 CAP ORALLY TWICE DAILY TAKING FLAX SEEDS 500 MG ORALLY BID TAKING VITAMIN E 400 UNIT CAPSULE 1 CAPSULE ORALLY ONCE A DAY TAKING ASPIR-81 81 MG TABLET DELAYED RELEASE 1 TABLET ORALLY ONCE A DAY TAKING ALENDRONATE SODIUM 35 MG TABLET 1 TABLET ORALLY MONDAY ONLY TAKING PAROXETINE HCL 10 MG TABLET 1 TABLET IN THE MORNING ORALLY ONCE A DAY TAKING VISION FORMULA/LUTEIN TABLET ORALLY TWICE DAILY TAKING PRILOSEC 20MG 20MG TABLET ORAL TWICE DAILY TAKING FISH OIL 1200 MG CAPSULE 1 CAPSULE ORALLY BID TAKING ATORVASTATIN CALCIUM 40 MG TABLET 1 TABLET ORALLY ONCE A DAY TAKING NADOLOL 40 MG TABLET 1 TABLET ORALLY ONCE A DAY, NOTES: 12/13 TAKING BIOTENE DRY MOUTH - LOZENGE DIRECTED MOUTH/THROAT TAKING MAGNESIUM 400 MG CAPSULE DIRECTED ORALLY 2 A DAY TAKING GLIPIZIDE ER 2.5 MG TABLET EXTENDED RELEASE 24 HOUR 1 TABLET WITH BREAKFAST ORALLY ONCE A DAY, NOTES: 12/13 NOT-TAKING GLIMEPIRIDE 4 MG TABLET ORAL BID NOT-TAKING ALLOPURINOL 100 MG TABLET 1 TABLET ORALLY ONCE A DAY, NOTES: 12/09/20 NOT-TAKING AMILORIDE HCL 5 MG TABLET 1 TABLET WITH FOOD ORALLY ONCE A DAY NOT-TAKING VALTREX 1 GM TABLET 1 TABLET ORALLY ONCE A DAY, NOTES: LAST WEEK NOT-TAKING METOPROLOL TARTRATE 100 MG SEMI-ELECTRIC WITH ORAL BID NOT-TAKING POTASSIUM CHLORIDE ER 10 MEQ TABLET EXTENDED RELEASE 1 TABLETS WITH FOOD ORAL BID NOT-TAKING BACLOFEN 10 MG TABLET //2 - 1 TABLET WITH FOOD OR MILK ORALLY THREE TIMES A DAY NOT-TAKING MELOXICAM 15 MG TABLET 1 TABLET ORALLY ONCE A DAY NOT-TAKING TRAMADOL HCL 50 MG TABLET 1 TABLET NEEDED ORALLY EVERY 6 HRS PRN PAIN MDD=3, NOTES: NONE IN PAST YEAR NOT-TAKING BACLOFEN 10 MG TABLET 1/2 -1 TABLET ORALLY 3X/DAY NEEDED NOT-TAKING MELOXICAM 7.5 MG TABLET 1 TABLET ORALLY ONCE A DAY NOT-TAKING FLUTICASONE PROPIONATE 50 MCG/ACT SUSPENSION NASAL NEEDED MEDICATION LIST REVIEWED AND RECONCILED WITH THE PATIENT PAST MEDICAL HISTORY BRONCHIATUS HTN 2 CARDIAC CATHS PNEUMONIA HOME CPAP USE GERD CATARACT SURGURY BOTH EYES ANEMIA DIABETES DIVERTICULITIS RIGHT BREAST NODULE UTI MACULAR DEGENERATION LEFT EYE ALLERGIES PENICILLIN (FOR ALLERGIES USE ONLY): RASH SULFA (FOR ALLERGY USE ONLY): HOT RASH LATEX: ITCH IVP DYE: FROM YEARS AGO /GAVE RASH ERYTHROMYCIN: RASH LISINOPRIL: COUGH - SIDE EFFECTS HYDROCODONE-ACETAMINOPHEN: NAUSEA/VOMITING - ALLERGY SURGICAL HISTORY HYSTERECTOMY 1981 CARPAL TUNNEL APPENDECTOMHY, HERNIA OR 1960 SIGMOID RESECTION 2006 LEFT BREAST BIOPSY 2004 BACK SURGERY, RODS AND SCREWS 05/23/2018 TWO RODS TO STABALIZE RIGHT HIP 09/28/17 TONSILLECTOMY FAMILY HISTORY FATHER: , DIAGNOSED WITH UNSPECIFIED HEART DISEASE MOTHER: , HYPERTENSION, UNSPECIFIED HEART DISEASE, DIABETES 3 BROTHER(S) , 5 SISTER(S) . 1 SON(S) , 1 DAUGHTER(S) - HEALTHY. SISTER WITH LUNG DISEASE DECEASED2 BROTHERS WITH HEART DISEASE. SOCIAL HISTORY GENERAL: TOBACCO USE ARE YOU A: NONSMOKER. LATEX QUESTIONNAIRE LATEX ALLERGY : HAVE YOU EVER DEVELOPED ANY TYPE OF REACTION AFTER HANDLING LATEX PRODUCTS SUCH RUBBER GLOVES, CONDOMS, DIAPHRAGMS, BALLOONS, SOCKS, OR UNDERWEAR?YES - PLEASE INDICATE :RUBBER GLOVES, SOCKS LATEX ALLERGY : HAVE YOU EVER DEVELOPED ANY TYPE OF REACTION DURING OR AFTER DENTAL APPOINTMENT, VAGINAL/RECTAL EXAMINATION, SURGICAL PROCEDURE, OR ANY OTHER EXPOSURE?NO LATEX RISK : HAVE YOU EVER HAD ANY DIFFICULTY BREATHING OR HIVES AFTER EATING OR HANDLING ANY FRUITS, OR VEGETABLES; SUCH KIWI, BANANAS, STONE FRUITS, OR CHESTNUTSNO LATEX RISK : DO YOU HAVE A PREVIOUS PERSONAL HISTORY OF MORE THAN NINE SURGERIES, SPINA BIFIDA, OR REPEATED CATHERIZATIONS? NO LATEX RISK : ARE YOU FREQUENTLY EXPOSED TO LATEX PRODUCTS IN YOUR OCCUPATION?NO DATE ASKED : 12/14/2020 ALCOHOL USE: NO. ALCOHOL SCREENING DID YOU HAVE A DRINK CONTAINING ALCOHOL IN THE PAST YEAR?YES HOW OFTEN DID YOU HAVE SIX OR MORE DRINKS ON ONE OCCASION IN THE PAST YEAR?NEVER (0 POINTS) HOW MANY DRINKS DID YOU HAVE ON A TYPICAL DAY WHEN YOU WERE DRINKING IN THE PAST YEAR?1 OR 2 (0 POINTS) HOW OFTEN DID YOU HAVE A DRINK CONTAINING ALCOHOL IN THE PAST YEAR?MONTHLY OR LESS (1 POINT) POINTS1 INTERPRETATIONNEGATIVE RECREATIONAL DRUG USE DRUG USE?NO CAFFEINE CAFFEINE USE?YES HOW OFTEN AND HOW MUCH? 2-3 CUPS DAILY [employer] [id number] LANGUAGES SPOKEN:WELSH EDUCATION LEVEL OF EDUCATION: 11TH GRADE HS LEARNING BARRIERS / SPECIAL NEEDS CHANGE FROM LAST VISIT?YES BARRIERS TO LEARNING?NO HEARING IMPAIRED?NO VISION IMPAIRED?YES COGNITIVELY IMPAIRED?NO :CORRECTIVE LENSES READINESS TO LEARN?YES LEARNING PREFERENCES?YES :DEMONSTRATION/VERBAL INSTRUCTION LEARNING CAPABILITIES PRESENT?YES EMOTIONAL BARRIERS?NO SPECIAL DEVICES?NO PETROLEUM ENGINEERING PROFESSOR NEEDED?NO DOMESTIC VIOLENCE STATUS: NUMBER OF MONTHS/YEARS IN CURRENT RELATIONSHIP?USE NOTES SECTION 57 YRS DO YOU FEEL SAFE IN YOUR ENVIRONMENT?YES OCCUPATION: RETIRED CUSTOMER SERVICE. MARITAL STATUS: . OTHERS AT HOME: SPOUSE. - PFS REFERRAL NEEDED?NO CLERGY REFERRAL NEEDED?NO PUBLIC HEALTH REFERRAL NEEDED?NO WAS THE PROVIDER NOTIFIED OF ANY PERTINENT INFO?NO HAS THE PATIENT BEEN EDUCATED REGARDING HIS/HER PLAN OF CARE?YES HAS THE PATIENT BEEN EDUCATED REGARDING PAIN, THE RISK FOR PAIN, THE IMPORTANCE OF EFFECTIVE PAIN MANAGEMENT, AND THE PAIN ASSESSMENT PROCESS?YES ADVANCE DIRECTIVE ADVANCE DIRECTIVE DISCUSSED WITH PATIENT:YES HCP IS LUIS ATWOOD [phone] HOSPITALIZATION/MAJOR DIAGNOSTIC PROCEDURE BACK SURGERY 05/2018 VITAL SIGNS WT 178.6 LBS, HT 60 IN, BMI 34.88 INDEX, BP 150/70 MM HG, HR 83 /MIN, RR 16 /MIN, TEMP 97.7 F, OXYGEN SAT % 99%, SAFE IN ENV? (Y/N) YES, NA INITIALS NM 08:47, REVIEWED BY: FRANCESCA RN. EXAMINATION GENERAL EXAMINATION: THE PATIENT IS ALERT, ORIENTED TIMES THREE AND COOPERATIVE. LUNGS ARE CLEAR TO AUSCULTATION. HEART SHOWS REGULAR RHYTHM, NO MURMURS AND NO GALLOPS. ASSESSMENTS SPONDYLOSIS OF LUMBAR REGION WITHOUT MYELOPATHY OR RADICULOPATHY - M47.816 (PRIMARY) SPONDYLOSIS OF LUMBOSACRAL REGION WITHOUT MYELOPATHY OR RADICULOPATHY - M47.817 TREATMENT SPONDYLOSIS OF LUMBAR REGION WITHOUT MYELOPATHY OR RADICULOPATHY [facility] FACET BLOCK (PAIN)[id number] COMPLETION OF PROCEDURAL VISIT WHEN MEETS CRITERIA MED: PAIN BENADRYL TAB 25MG ORALLY DIPHENHYDRAMINESPINACI,LARISA A, RN 12/14/2020 9:19:27 AM > VERIFIED. GI HUYNH 12/14/2020 9:32:30 AM > ADMINISTERED SPONDYLOSIS OF LUMBOSACRAL REGION WITHOUT MYELOPATHY OR RADICULOPATHY [facility] FACET BLOCK (PAIN)[id number] PROCEDURES PAIN NURSING RECORD PROCEDURE IN ROOM 0950 , PHYSICIAN IN ROOM 1004 , START 1014 , FINISH 1020 , PHYSICIAN OUT OF ROOM 1022 , ECG NORMAL SINUS , PATIENT SHIELDED YES , SAFETY STRAP YES , PREP CHLOROPREP Fina BRIAN RN, DRESSING TEGADERM DR. BELTRAN LOC: IN ROOM 0950, PHYSICIAN IN ROOM 1004, START 1014, FINISH 1020, PHYSICIAN OUT OF ROOM 1022, ECG NORMAL SINUS, PATIENT SHIELDED YES, SAFETY STRAP YES, PREP CHLOROPREP Fina BRIAN RN, DRESSING TEGADERM DR. BELTRAN RESP: IN ROOM 0950, PHYSICIAN IN ROOM 1004, START 1014, FINISH 1020, PHYSICIAN OUT OF ROOM 1022, ECG NORMAL SINUS, PATIENT SHIELDED YES, SAFETY STRAP YES, PREP CHLOROPREP Fina BRIAN RN, DRESSING TEGADERM DR. BELTRAN COLOR: 1. ALERT, ORIENTED SKIN: 1. WARM, DRY POSITION: 1. PRONE VITALS: GI HUYNH 12/14/2020 10:00:33 AM > 168/74 HR 81 16 97% R/A AMINA MARY 12/14/2020 10:15:24 AM > 157/72 HR 80 16 96% R/A , GI HUYNH 12/14/2020 10:34:46 AM > 160/72 HR 78 16 98% R/A D/C V/S COMPLETION OF PROCEDURE APPOINTMENT: POST PAIN 0, DRESSING SITE DRY AND INTACT, IV N/A, GAIT STEADY, TEACHING COMPLETED, PATIENT ACKNOWLEDGES UNDERSTANDING YES, PROCEDURE APPOINTMENT COMPLETED AT 1040 PN LUMBAR FACET BLOCK THERAPEUTIC PRE PROCEDURE DIAGNOSIS LUMBAR SPONDYLOSIS, LUMBOSACRAL SPONDYLOSIS POST PROCEDURE DIAGNOSIS LUMBAR SPONDYLOSIS, LUMBOSACRAL SPONDYLOSIS PROCEDURE BILATERAL L3-L4 AND BILATERAL L4-L5 LUMBAR FACET THERAPEUTIC BLOCK SURGEON DR. MICHELLE BELTRAN FRANCHISE MANAGER NONE ANESTHESIA LOCAL PRE PROCEDURE NOTE THE PATIENT HAS A HISTORY OF CHRONIC LOW BACK PAIN. I EVALUATED THE PATIENT AND REVIEWED THE CHART. I WENT OVER THE RISKS, ALTERNATIVES, AND BENEFITS ASSOCIATED WITH THIS PROCEDURE. THE PATIENT WOULD LIKE TO PROCEED AND GIVES CONSENT TO PERFORM THE PROCEDURE. THE PATIENT DENIES UNEXPLAINABLE WEIGHT LOSS, FEVER, CHILLS, OR NEW CHANGES IN URINARY OR BOWEL CONTROL. THE PATIENT IS COVID-19 NEGATIVE DESCRIPTION OF PROCEDURE THE PATIENT WAS BROUGHT TO THE PROCEDURE ROOM AND PLACED IN THE PRONE POSITION. THE LUMBOSACRAL AREA WAS CLEANED WITH CHLORAPREP SOLUTION AND DRAPED ASEPTICALLY. THE PROCEDURE WAS DONE UNDER STERILE CONDITIONS. A TIMEOUT WAS PERFORMED WHERE THE CONSENTED SITE WAS VERIFIED WITH EVERYONE IN THE ROOM. UNDER FLUOROSCOPIC GUIDANCE, THE TARGET POINT WAS SELECTED AT THE RIGHT AND LEFT L3-L4 AND RIGHT AND LEFT L4-L5 FACET JOINTS. TARGET POINT WAS SELECTED AFTER LATERAL ROTATION AND TILT OF THE MAGNIFIER OF THE C-ARM. I CONFIRMED AGAIN THE SITE OF TARGET. LIDOCAINE 0.5% WAS USED TO NUMB THE SKIN AND THE SUBCUTANEOUS TISSUE BELOW IT. SPINAL NEEDLES, 22-GAUGE, WERE ADVANCED UNDER FLUOROSCOPIC GUIDANCE AND FOLLOWING PATIENT FEEDBACK UNTIL THE TARGETS WERE TOUCHED. THE POSITION OF THE NEEDLES WAS VERIFIED WITH AP AND LATERAL VIEWS. AFTER PROPER POSITION OF THE NEEDLES WAS ACHIEVED, ISOVUE-M DYE 30%, 0.1 ML, WAS INJECTED SHOWING ADEQUATE SPREAD OF THE DYE. KENALOG 10 MG WAS INJECTED AT EACH SITE. THEN, A SOLUTION OF 1.0 ML OF BUPIVACAINE 0.125% OF WAS USED TO FLUSH EACH SITE. THE MEDICATION WAS VERIFIED WITH THE NURSE. THERE WAS NO EVIDENCE OF BLOOD, PARESTHESIA OR CEREBROSPINAL FLUID DURING THE PROCEDURE. THE PATIENT WAS SENT TO THE RECOVERY ROOM. THE PATIENT WAS MOVING THE EXTREMITIES AND DOING WELL. THERE WERE NO COMPLICATIONS DURING THE PROCEDURE. ESTIMATED BLOOD LOSS WAS LESS THAN 5 ML. FLUOROSCOPY TIME WAS 37 SECONDS POST PROCEDURE NOTE I CHECKED THE PATIENT UNDER X-RAY, DEPENDING ON THE RESULTS, CONSIDER A RIGHT L4-L5 DIAGNOSTIC FACET BLOCK TO CONSIDER RADIOFREQUENCY. ALSO CONSIDER A LEFT SACROILIAC JOINT BLOCK. THE PATIENT WILL BE SEEN IN A FOLLOW UP IN THE NEXT FEW WEEKS. I AM LOOKING FOR LONG LASTING RELIEF FOR THE PATIENT WITH THIS INTERVENTION. INSTRUCTIONS WERE GIVEN, QUESTIONS WERE ANSWERED, AND THE PATIENT EXPRESSED UNDERSTANDING AND AGREES WITH THE PLAN. I, MOE PAYNE, DOCUMENTED THE ABOVE INFORMATION ACTING A SCRIBE FOR DR. BELTRAN. I HAVE REVIEWED THE ABOVE DOCUMENT, WRITTEN BY MOE PAYNE, OFFICE MACHINE REPAIR SHOP SUPERVISOR, AND I VERIFY THAT IT IS ACCURATE PROCEDURE CODES 88783 INJ PARAVERT F JNT L/S 1 LEV, MODIFIERS: 50 [id number] INJ PARAVERT F JNT L/S 2 LEV, MODIFIERS: 50 DISPOSITION & COMMUNICATION FOLLOW UP FOLLOW UP WITH MANAGER CONSUMER (REASON: POST BILATERAL THERAPEUTIC LUMBAR FACET BLOCK L3-L4, L4-L5) ELECTRONICALLY SIGNED BY MICHELLE BELTRAN MD, ON 12/16/2020 AT 03:08 PM EDT DISCLAIMER : THIS IS A VISIT SUMMARY EXTRACTED FROM THE [facility]ART. IT IS NOT A COPY OF THE [facility] PROGRESS NOTE. MTDD
== END ==
LOC: M PAIN 08:30
PROVIDERS: ATTEND Anesthesiology
DX: M47.816 Spondylosis without myelopathy or radiculopathy, lumbar region (principal); M47.817 Spondylosis without myelopathy or radiculopathy, lumbosacral region; I10 Essential (primary) hypertension; K21.9 Gastro-esophageal reflux disease without esophagitis; D64.9 Anemia, unspecified; E11.9 Type 2 diabetes mellitus without complications; H35.30 Unspecified macular degeneration; Z98.41 Cataract extraction status, right eye; Z98.42 Cataract extraction status, left eye; Z79.82 Long term (current) use of aspirin; Z79.84 Long term (current) use of oral hypoglycemic drugs; Z79.899 Other long term (current) drug therapy; Z88.0 Allergy status to penicillin; Z88.1 Allergy status to other antibiotic agents; Z88.2 Allergy status to sulfonamides; Z88.5 Allergy status to narcotic agent; Z88.8 Allergy status to other drugs, medicaments and biological substances; Z91.040 Latex allergy status
CPT/HCPCS: 64493; 64494; J3301; Q9967

== ENCOUNTER → 2020-12-17 | Outpatient (CLI) | payer MEDICARE ==
[~2020-12-17] MED LIST changes: -BUPIVACAINE HCL 0.25% 30ML VIAL As Ordered ONE; -ISOVUE-M 300 61% 15ML VIAL As Ordered ONE; -LIDOCAINE 1% SDV 30ML VIAL As Ordered ONE; -TRIAMCINOLONE ACETONIDE SUSP 40 MG/ML VIAL (J3301) As Ordered ONE; -diphenhydrAMINE 25MG CAP As Ordered ONE
--- NOTE | 2020-12-18 23:18 | ECWPNPC ---
PATIENT NAME: ADELAIDA ATWOOD : 1940 GENDER: FEMALE VISIT DATE: 12/17/2020 DISCHARGE DATE: 12/17/20 1025 VISIT LOCKED DATE TIME: PHYSICIAN: KARTHIKEYAN PENALOZA RESOURCE: KARTHIKEYAN PENALOZA REASON FOR APPOINTMENT 1. POST BILATERAL THERAPEUTIC LUMBAR FACET BLOCK L3-L4, L4-L5, L5-S1 HISTORY OF PRESENT ILLNESS DEPRESSION SCREENING: PHQ-2 (2015 EDITION) LITTLE INTEREST OR PLEASURE IN DOING THINGS?NOT AT ALL FEELING DOWN, DEPRESSED, OR HOPELESS?NOT AT ALL TOTAL SCORE0 GENERAL: HERE FOR POST PROCEDURE FOLLOW-UP. HAD BILATERAL THERAPEUTIC LUMBAR FACET BLOCK L3-4, L4-5 ON 12/14/2020. REPORTING MARKED REDUCTION IN PAIN BOTH IN THE LOWER BACK AND RIGHT HIP AREA POST PROCEDURE. REPORTING IMPROVED ACTIVITY TOLERANCE POST PROCEDURE. OVERALL VERY HAPPY. DISCUSSED THE POSSIBILITY OF DOING RADIOFREQUENCY SHOULD THIS REOCCUR BECAUSE SHE RESPONDED WELL TO THERAPEUTIC LUMBAR BLOCK. -. FALL RISK SCREENING: SCREENING : NO FALLS REPORTED IN THE LAST YEAR. PAIN SCREENING: PATIENT HAS A COMPLAINT OF ACUTE OR CHRONIC PAIN :YES LOCATION OF PAIN:RIGHT HIP INTENSITY OF PAIN (SCALE OF 1 TO 10):1 TENDERNESS WHAT DOES YOUR PAIN FEEL LIKE:CONTINOUS, TENDER DURATION:CONTINOUS PAIN IS INCREASED BY:ACTIVITIES, PROLONGED STANDING PAIN IS DECREASED BY:SITTING RECLINER NURSING NOTE: -. CURRENT MEDICATIONS TAKING VALTREX 1 GM TABLET 1 TABLET ORALLY ONCE A DAY, NOTES: LAST WEEK TAKING POTASSIUM CHLORIDE ER 10 MEQ TABLET EXTENDED RELEASE 1 TABLETS WITH FOOD ORAL BID TAKING FLUTICASONE PROPIONATE 50 MCG/ACT SUSPENSION NASAL NEEDED TAKING VICTOZA 18 MG/3ML SOLUTION PEN-INJECTOR 1.8 SUBCUTANEOUS DAILY, NOTES: 12/13 TAKING TRIBENZOR 40-10-25 MG TABLET ORAL DAILY, NOTES: 12/14 599 TAKING FUROSEMIDE 20 MG TABLET 1 TABLE ORAL DAILY, NOTES: 12/13 TAKING HYDRALAZINE HCL 10 MG TABLET ORAL DAILY, NOTES: 12/14 599 TAKING METFORMIN HCL 500 MG TABLET BREAKFAST AND DINNER ORALLY ONCE A DAY, NOTES: 12/13 TAKING CALTRATE 600+D SOFT 600-800 MG-UNIT TABLET CHEWABLE ORALLY BID TAKING VITAMIN C 500 MG CAPSULE ORALLY DAILY TAKING VITAMIN B 12 500 MCG LOZENGE 1 CAP ORALLY ONCE A DAY TAKING VITAMIN D-3 2000 CAPSULE 1 CAP ORALLY TWICE DAILY TAKING FLAX SEEDS 500 MG ORALLY BID TAKING VITAMIN E 400 UNIT CAPSULE 1 CAPSULE ORALLY ONCE A DAY TAKING ASPIR-81 81 MG TABLET DELAYED RELEASE 1 TABLET ORALLY ONCE A DAY TAKING ALENDRONATE SODIUM 35 MG TABLET 1 TABLET ORALLY MONDAY ONLY TAKING PAROXETINE HCL 10 MG TABLET 1 TABLET IN THE MORNING ORALLY ONCE A DAY TAKING VISION FORMULA/LUTEIN TABLET ORALLY TWICE DAILY TAKING PRILOSEC 20MG 20MG TABLET ORAL TWICE DAILY TAKING FISH OIL 1200 MG CAPSULE 1 CAPSULE ORALLY BID TAKING ATORVASTATIN CALCIUM 40 MG TABLET 1 TABLET ORALLY ONCE A DAY TAKING NADOLOL 40 MG TABLET 1 TABLET ORALLY ONCE A DAY, NOTES: 12/13 TAKING BIOTENE DRY MOUTH - LOZENGE DIRECTED MOUTH/THROAT TAKING MAGNESIUM 400 MG CAPSULE DIRECTED ORALLY 2 A DAY TAKING GLIPIZIDE ER 2.5 MG TABLET EXTENDED RELEASE 24 HOUR 1 TABLET WITH BREAKFAST ORALLY ONCE A DAY, NOTES: 12/13 NOT-TAKING GLIMEPIRIDE 4 MG TABLET ORAL BID NOT-TAKING ALLOPURINOL 100 MG TABLET 1 TABLET ORALLY ONCE A DAY, NOTES: 12/09/20 NOT-TAKING AMILORIDE HCL 5 MG TABLET 1 TABLET WITH FOOD ORALLY ONCE A DAY NOT-TAKING METOPROLOL TARTRATE 100 MG SEMI-ELECTRIC WITH ORAL BID NOT-TAKING BACLOFEN 10 MG TABLET 1//2 - 1 TABLET WITH FOOD OR MILK ORALLY THREE TIMES A DAY NOT-TAKING MELOXICAM 15 MG TABLET 1 TABLET ORALLY ONCE A DAY NOT-TAKING TRAMADOL HCL 50 MG TABLET 1 TABLET NEEDED ORALLY EVERY 6 HRS PRN PAIN MDD=3, NOTES: NONE IN PAST YEAR NOT-TAKING BACLOFEN 10 MG TABLET 1/2 -1 TABLET ORALLY 3X/DAY NEEDED NOT-TAKING MELOXICAM 7.5 MG TABLET 1 TABLET ORALLY ONCE A DAY NOT-TAKING GLIPIZIDE 5 MG TABLET 1 TABLET 30 MINUTES BEFORE BREAKFAST ORALLY ONCE A DAY MEDICATION LIST REVIEWED AND RECONCILED WITH THE PATIENT PAST MEDICAL HISTORY BRONCHIATUS HTN 2 CARDIAC CATHS PNEUMONIA HOME CPAP USE GERD CATARACT SURGURY BOTH EYES ANEMIA DIABETES DIVERTICULITIS RIGHT BREAST NODULE UTI MACULAR DEGENERATION LEFT EYE ALLERGIES PENICILLIN (FOR ALLERGIES USE ONLY): RASH SULFA (FOR ALLERGY USE ONLY): HOT RASH LATEX: ITCH IVP DYE: FROM YEARS AGO /GAVE RASH ERYTHROMYCIN: RASH LISINOPRIL: COUGH - SIDE EFFECTS HYDROCODONE-ACETAMINOPHEN: NAUSEA/VOMITING - ALLERGY SOCIAL HISTORY GENERAL: TOBACCO USE ARE YOU A: NONSMOKER. LATEX QUESTIONNAIRE LATEX ALLERGY : HAVE YOU EVER DEVELOPED ANY TYPE OF REACTION AFTER HANDLING LATEX PRODUCTS SUCH RUBBER GLOVES, CONDOMS, DIAPHRAGMS, BALLOONS, SOCKS, OR UNDERWEAR?YES - PLEASE INDICATE :RUBBER GLOVES, SOCKS LATEX ALLERGY : HAVE YOU EVER DEVELOPED ANY TYPE OF REACTION DURING OR AFTER DENTAL APPOINTMENT, VAGINAL/RECTAL EXAMINATION, SURGICAL PROCEDURE, OR ANY OTHER EXPOSURE?NO LATEX RISK : HAVE YOU EVER HAD ANY DIFFICULTY BREATHING OR HIVES AFTER EATING OR HANDLING ANY FRUITS, OR VEGETABLES; SUCH KIWI, BANANAS, STONE FRUITS, OR CHESTNUTSNO LATEX RISK : DO YOU HAVE A PREVIOUS PERSONAL HISTORY OF MORE THAN NINE SURGERIES, SPINA BIFIDA, OR REPEATED CATHERIZATIONS? NO LATEX RISK : ARE YOU FREQUENTLY EXPOSED TO LATEX PRODUCTS IN YOUR OCCUPATION?NO DATE ASKED : 12/17/2020 ALCOHOL USE: NO. ALCOHOL SCREENING DID YOU HAVE A DRINK CONTAINING ALCOHOL IN THE PAST YEAR?YES HOW OFTEN DID YOU HAVE SIX OR MORE DRINKS ON ONE OCCASION IN THE PAST YEAR?NEVER (0 POINTS) HOW MANY DRINKS DID YOU HAVE ON A TYPICAL DAY WHEN YOU WERE DRINKING IN THE PAST YEAR?1 OR 2 (0 POINTS) HOW OFTEN DID YOU HAVE A DRINK CONTAINING ALCOHOL IN THE PAST YEAR?MONTHLY OR LESS (1 POINT) POINTS1 INTERPRETATIONNEGATIVE RECREATIONAL DRUG USE DRUG USE?NO CAFFEINE CAFFEINE USE?YES HOW OFTEN AND HOW MUCH? 2-3 CUPS DAILY [employer] [id number] [employer] LANGUAGES SPOKEN:BANGLADESHI EDUCATION LEVEL OF EDUCATION: 11TH GRADE HS LEARNING BARRIERS / SPECIAL NEEDS CHANGE FROM LAST VISIT?NO BARRIERS TO LEARNING?NO HEARING IMPAIRED?NO VISION IMPAIRED?YES :CORRECTIVE LENSES COGNITIVELY IMPAIRED?NO READINESS TO LEARN?YES LEARNING PREFERENCES?YES :DEMONSTRATION/VERBAL INSTRUCTION LEARNING CAPABILITIES PRESENT?YES EMOTIONAL BARRIERS?NO SPECIAL DEVICES?NO PHOTOCOPYING EQUIPMENT MECHANIC NEEDED?NO DOMESTIC VIOLENCE STATUS: NUMBER OF MONTHS/YEARS IN CURRENT RELATIONSHIP?USE NOTES SECTION 59 YRS DO YOU FEEL SAFE IN YOUR ENVIRONMENT?YES OCCUPATION: RETIRED CUSTOMER SERVICE. MARITAL STATUS: . OTHERS AT HOME: SPOUSE. - PFS REFERRAL NEEDED?NO CLERGY REFERRAL NEEDED?NO PUBLIC HEALTH REFERRAL NEEDED?NO WAS THE PROVIDER NOTIFIED OF ANY PERTINENT INFO?NO HAS THE PATIENT BEEN EDUCATED REGARDING HIS/HER PLAN OF CARE?YES HAS THE PATIENT BEEN EDUCATED REGARDING PAIN, THE RISK FOR PAIN, THE IMPORTANCE OF EFFECTIVE PAIN MANAGEMENT, AND THE PAIN ASSESSMENT PROCESS?YES ADVANCE DIRECTIVE ADVANCE DIRECTIVE DISCUSSED WITH PATIENT:YES HCP IS LUIS ATWOOD [phone] REVIEW OF SYSTEMS CONSTITUTIONAL: ANY RECENT FEVER NO . CHILLS NO . WEIGHT CHANGE OF UNKNOWN REASONS NO . GASTROENTEROLOGY: NEW UNEXPLAINABLE CHANGES IN BOWEL CONTROL NO . CONSTIPATION NO . GENITOURINARY: ANY NEW CHANGE IN BLADDER CONTROL? NO . NEUROLOGY: NEW ONSET DIZZINESS OR NEUROLOGICAL CHANGES NOT MENTIONED NO . NEW NUMBNESS OR PAIN PATTERNS NOT MENTIONED AND PERTINENT TO TODAY'S VISIT NO . CARDIOLOGY: NEW CHEST PRESSURE NO . PATIENT DENIES NO . RESPIRATORY: UNEXPLAINABLE COUGH NO . NEW SHORTNESS OF BREATH NO . VITAL SIGNS WT 178.4 LBS, HT 60 IN, BMI 34.84 INDEX, BP 173/75 MM HG, REPEAT BP 148/78 MANUAL RIGHT ARM, HR 77 /MIN, RR 18 /MIN, TEMP 97.5 F, OXYGEN SAT % 97%, SAFE IN ENV? (Y/N) YES, NA INITIALS AW 0950, REVIEWED BY: JACK BP RECHECKED. PROVIDER NOTIFIED. ESTEBAN COTTON MA. EXAMINATION GENERAL EXAMINATION: GENERALAWAKE,ALERT ,PLEASANT . PSYCHAFFECT NORMAL . LUNGS:LUNG [place] ARE CLEAR TO AUSCULTATION BILATERALLY. GOOD MOVEMENT OF AIR . HEART:S1, S2 IN A REGULAR RATE AND RHYTHM. NO SIGNIFICANT MURMURS, RUBS OR GALLOPS NOTED . ASSESSMENTS OTHER CHRONIC PAIN - G89.29 (PRIMARY) SPONDYLOSIS OF LUMBAR REGION WITHOUT MYELOPATHY OR RADICULOPATHY - M47.816 TREATMENT OTHER CHRONIC PAIN PAIN PROCEDURE LOGDATE OF PROCEDURE1PROCEDURE:BILATERAL THERAPEUTIC LUMBAR FACET BLOCK L3-L4,L4-G3WJLXRH OF PRE SEDATEBENADRYL 25MGRESULT:MARKED REDUCTION IN PAIN AND IMPROVED ACTIVITY TOLERANCE PROCEDURE CODES FA211 ESTABILISHED PATIENT [facility] CHARGE DISPOSITION & COMMUNICATION FOLLOW UP 2 MONTHS (REASON: LOW BACK PAIN /RESPONDS WELL TO LFBT) ELECTRONICALLY SIGNED BY HEATHER KOROMA ON 12/18/2020 AT 08:55 AM EDT DISCLAIMER : THIS IS A VISIT SUMMARY EXTRACTED FROM THE [employer] CHART. IT IS NOT A COPY OF THE [employer] PROGRESS NOTE. MTDD
== END ==
LOC: M PAIN 09:45
PROVIDERS: ATTEND Nurse Practitioner Family
DX: G89.29 Other chronic pain (principal); M47.816 Spondylosis without myelopathy or radiculopathy, lumbar region; I10 Essential (primary) hypertension; K21.9 Gastro-esophageal reflux disease without esophagitis; D64.9 Anemia, unspecified; E11.9 Type 2 diabetes mellitus without complications; H35.30 Unspecified macular degeneration; Z79.84 Long term (current) use of oral hypoglycemic drugs; Z79.82 Long term (current) use of aspirin; Z79.899 Other long term (current) drug therapy; Z88.0 Allergy status to penicillin; Z88.1 Allergy status to other antibiotic agents; Z88.2 Allergy status to sulfonamides; Z88.5 Allergy status to narcotic agent; Z88.8 Allergy status to other drugs, medicaments and biological substances; Z91.040 Latex allergy status; Z91.041 Radiographic dye allergy status

== ENCOUNTER → 2021-02-15 | Outpatient (CLI) | payer MEDICARE ==
--- NOTE | 2021-02-17 04:06 | ECWPNPC ---
PATIENT NAME: ADELAIDA ATWOOD : 1940 GENDER: FEMALE VISIT DATE: 02/15/2021 DISCHARGE DATE: 02/15/21 1132 VISIT LOCKED DATE TIME: PHYSICIAN: KARTHIKEYAN PENALOZA RESOURCE: KARTHIKEYAN PENALOZA REASON FOR APPOINTMENT 1. LOW BACK PAIN /RESPONDS WELL TO LFBT HISTORY OF PRESENT ILLNESS GENERAL: ADELAIDA IS HERE FOR FOLLOW-UP OF PERSISTENT LOW BACK PAIN. PAIN HAS RETURNED TO BASELINE. PATIENT WAS DOING WELL AFTER THERAPEUTIC LUMBAR BLOCK FOR SEVERAL MONTHS. PAIN IS ONLY ON THE RIGHT LOW BACK AREA. REVIEWED MRI OF THE LS-SPINE AND DISCUSSED TREATMENT PLAN. DISCUSSED RADIOFREQUENCY PROCESS. -. FALL RISK SCREENING: SCREENING : NO FALLS REPORTED IN THE LAST YEAR. PAIN SCREENING: PATIENT HAS A COMPLAINT OF ACUTE OR CHRONIC PAIN :YES LOCATION OF PAIN:LOW BACK, RIGHT HIP INTENSITY OF PAIN (SCALE OF 1 TO 10):7 WHAT DOES YOUR PAIN FEEL LIKE:ACHING, BURNING, CONTINOUS, STABBING, OTHER SPASMS DURATION:CONTINOUS, CONSTANT PAIN IS INCREASED BY:ACTIVITIES, PROLONGED STANDING PAIN IS DECREASED BY:SITTING NURSING NOTE: -. PAIN CENTER INTAKE QUESTIONS: DO YOU HAVE A HISTORY OF MRSA? :NO DO YOU TAKE A BLOOD THINNERS? :NO DO YOU HAVE ANY BLEEDING DISORDERS? :NO ANY NEW NUMBNESS OR WEAKNESS IN YOUR LEGS OR ARMS? :YES BILAT FEET NUMB ANY PACEMAKER,DEFIBRILLATOR, OR DORSAL COLUMN STIMULATOR? :NO DO YOU HAVE ANY RASHES OR OPEN SORES? :NO ARE YOU ALLERGIC TO IV DYE? :NO ARE YOU DIABETIC? :YES ANY NEW PROBLEMS WITH YOUR MEDICATIONS? :NO HAVE YOU RECEIVED A VACCINE IN THE PAST 30 DAYS? :NO SECOND COVID VACCINATION 11/26/2020 DO YOU NEED ANY PRESCRIPTION? :NO DO YOU TAKE ANY IMMUNOSUPPRESSIVE MEDICATIONS? :NO IS THERE A CHANCE YOU COULD BE ? :NO ARE YOU BREAST FEEDING? :NO CURRENT MEDICATIONS TAKING VALTREX 1 GM TABLET 1 TABLET ORALLY ONCE A DAY, NOTES: LAST WEEK TAKING POTASSIUM CHLORIDE ER 10 MEQ TABLET EXTENDED RELEASE 1 TABLETS WITH FOOD ORAL BID TAKING FLUTICASONE PROPIONATE 50 MCG/ACT SUSPENSION NASAL NEEDED TAKING VICTOZA 18 MG/3ML SOLUTION PEN-INJECTOR 1.8 SUBCUTANEOUS DAILY, NOTES: 12/13 TAKING TRIBENZOR 40-10-25 MG TABLET ORAL DAILY, NOTES: 12/14 0600 TAKING FUROSEMIDE 20 MG TABLET 1 TABLE ORAL DAILY, NOTES: 12/13 TAKING HYDRALAZINE HCL 10 MG TABLET ORAL DAILY, NOTES: 12/14 0600 TAKING METFORMIN HCL 500 MG TABLET BREAKFAST AND DINNER ORALLY ONCE A DAY, NOTES: 12/13 TAKING CALTRATE 600+D SOFT 600-800 MG-UNIT TABLET CHEWABLE ORALLY BID TAKING VITAMIN C 500 MG CAPSULE ORALLY DAILY TAKING VITAMIN B 12 500 MCG LOZENGE 1 CAP ORALLY ONCE A DAY TAKING VITAMIN D-3 2000 CAPSULE 1 CAP ORALLY TWICE DAILY TAKING FLAX SEEDS 500 MG ORALLY BID TAKING VITAMIN E 400 UNIT CAPSULE 1 CAPSULE ORALLY ONCE A DAY TAKING ASPIR-81 81 MG TABLET DELAYED RELEASE 1 TABLET ORALLY ONCE A DAY TAKING ALENDRONATE SODIUM 35 MG TABLET 1 TABLET ORALLY MONDAY ONLY TAKING PAROXETINE HCL 10 MG TABLET 1 TABLET IN THE MORNING ORALLY ONCE A DAY TAKING VISION FORMULA/LUTEIN TABLET ORALLY TWICE DAILY TAKING PRILOSEC 20MG 20MG TABLET ORAL TWICE DAILY TAKING FISH OIL 1200 MG CAPSULE 1 CAPSULE ORALLY BID TAKING ATORVASTATIN CALCIUM 40 MG TABLET 1 TABLET ORALLY ONCE A DAY TAKING NADOLOL 40 MG TABLET 1 TABLET ORALLY ONCE A DAY, NOTES: 12/13 TAKING BIOTENE DRY MOUTH - LOZENGE DIRECTED MOUTH/THROAT TAKING MAGNESIUM 400 MG CAPSULE DIRECTED ORALLY 2 A DAY TAKING GLIPIZIDE ER 2.5 MG TABLET EXTENDED RELEASE 24 HOUR 1 TABLET WITH BREAKFAST ORALLY ONCE A DAY, NOTES: 12/13 TAKING METFORMIN HCL 500 MG TABLET 1 TABLET WITH A MEAL ORALLY ONCE A DAY NOT-TAKING GLIMEPIRIDE 4 MG TABLET ORAL BID NOT-TAKING ALLOPURINOL 100 MG TABLET 1 TABLET ORALLY ONCE A DAY, NOTES: 12/09/20 NOT-TAKING AMILORIDE HCL 5 MG TABLET 1 TABLET WITH FOOD ORALLY ONCE A DAY NOT-TAKING METOPROLOL TARTRATE 100 MG SEMI-ELECTRIC WITH ORAL BID NOT-TAKING BACLOFEN 10 MG TABLET 1//2 - 1 TABLET WITH FOOD OR MILK ORALLY THREE TIMES A DAY NOT-TAKING MELOXICAM 15 MG TABLET 1 TABLET ORALLY ONCE A DAY NOT-TAKING TRAMADOL HCL 50 MG TABLET 1 TABLET NEEDED ORALLY EVERY 6 HRS PRN PAIN MDD=3 NOT-TAKING BACLOFEN 10 MG TABLET 1/2 -1 TABLET ORALLY 3X/DAY NEEDED NOT-TAKING MELOXICAM 7.5 MG TABLET 1 TABLET ORALLY ONCE A DAY NOT-TAKING GLIPIZIDE 5 MG TABLET 1 TABLET 30 MINUTES BEFORE BREAKFAST ORALLY ONCE A DAY MEDICATION LIST REVIEWED AND RECONCILED WITH THE PATIENT PAST MEDICAL HISTORY BRONCHIATUS HTN 2 CARDIAC CATHS PNEUMONIA HOME CPAP USE GERD CATARACT SURGURY BOTH EYES ANEMIA DIABETES DIVERTICULITIS RIGHT BREAST NODULE UTI MACULAR DEGENERATION LEFT EYE ALLERGIES PENICILLIN (FOR ALLERGIES USE ONLY): RASH SULFA (FOR ALLERGY USE ONLY): HOT RASH LATEX: ITCH IVP DYE: FROM YEARS AGO /GAVE RASH ERYTHROMYCIN: RASH LISINOPRIL: COUGH - SIDE EFFECTS HYDROCODONE-ACETAMINOPHEN: NAUSEA/VOMITING - ALLERGY SOCIAL HISTORY GENERAL: TOBACCO USE ARE YOU A: NONSMOKER. LATEX QUESTIONNAIRE LATEX ALLERGY : HAVE YOU EVER DEVELOPED ANY TYPE OF REACTION AFTER HANDLING LATEX PRODUCTS SUCH RUBBER GLOVES, CONDOMS, DIAPHRAGMS, BALLOONS, SOCKS, OR UNDERWEAR?YES - PLEASE INDICATE :RUBBER GLOVES, SOCKS LATEX ALLERGY : HAVE YOU EVER DEVELOPED ANY TYPE OF REACTION DURING OR AFTER DENTAL APPOINTMENT, VAGINAL/RECTAL EXAMINATION, SURGICAL PROCEDURE, OR ANY OTHER EXPOSURE?NO LATEX RISK : HAVE YOU EVER HAD ANY DIFFICULTY BREATHING OR HIVES AFTER EATING OR HANDLING ANY FRUITS, OR VEGETABLES; SUCH KIWI, BANANAS, STONE FRUITS, OR CHESTNUTSNO LATEX RISK : DO YOU HAVE A PREVIOUS PERSONAL HISTORY OF MORE THAN NINE SURGERIES, SPINA BIFIDA, OR REPEATED CATHERIZATIONS? NO LATEX RISK : ARE YOU FREQUENTLY EXPOSED TO LATEX PRODUCTS IN YOUR OCCUPATION?NO DATE ASKED : 02/15/2021 ALCOHOL USE: NO. ALCOHOL SCREENING DID YOU HAVE A DRINK CONTAINING ALCOHOL IN THE PAST YEAR?YES HOW OFTEN DID YOU HAVE SIX OR MORE DRINKS ON ONE OCCASION IN THE PAST YEAR?NEVER (0 POINTS) HOW MANY DRINKS DID YOU HAVE ON A TYPICAL DAY WHEN YOU WERE DRINKING IN THE PAST YEAR?1 OR 2 (0 POINTS) HOW OFTEN DID YOU HAVE A DRINK CONTAINING ALCOHOL IN THE PAST YEAR?MONTHLY OR LESS (1 POINT) POINTS1 INTERPRETATIONNEGATIVE RECREATIONAL DRUG USE DRUG USE?NO CAFFEINE CAFFEINE USE?YES HOW OFTEN AND HOW MUCH? 2-3 CUPS DAILY PRESYBETERIAN [id number] [employer] LANGUAGE LANGUAGES SPOKEN:[place]AG[place]AYAN EDUCATION LEVEL OF EDUCATION: 11TH GRADE HS LEARNING BARRIERS / SPECIAL NEEDS CHANGE FROM LAST VISIT?NO BARRIERS TO LEARNING?NO HEARING IMPAIRED?NO VISION IMPAIRED?YES :CORRECTIVE LENSES COGNITIVELY IMPAIRED?NO READINESS TO LEARN?YES LEARNING PREFERENCES?YES :DEMONSTRATION/VERBAL INSTRUCTION LEARNING CAPABILITIES PRESENT?YES EMOTIONAL BARRIERS?NO SPECIAL DEVICES?NO DIE CAST TECHNICIAN NEEDED?NO DOMESTIC VIOLENCE STATUS: NUMBER OF MONTHS/YEARS IN CURRENT RELATIONSHIP?USE NOTES SECTION 57 YRS DO YOU FEEL SAFE IN YOUR ENVIRONMENT?YES OCCUPATION: RETIRED CUSTOMER SERVICE. MARITAL STATUS: . OTHERS AT HOME: SPOUSE. - PFS REFERRAL NEEDED?NO CLERGY REFERRAL NEEDED?NO PUBLIC HEALTH REFERRAL NEEDED?NO WAS THE PROVIDER NOTIFIED OF ANY PERTINENT INFO?NO HAS THE PATIENT BEEN EDUCATED REGARDING HIS/HER PLAN OF CARE?YES HAS THE PATIENT BEEN EDUCATED REGARDING PAIN, THE RISK FOR PAIN, THE IMPORTANCE OF EFFECTIVE PAIN MANAGEMENT, AND THE PAIN ASSESSMENT PROCESS?YES ADVANCE DIRECTIVE ADVANCE DIRECTIVE DISCUSSED WITH PATIENT:YES HCP IS LUIS ATWOOD [phone] REVIEW OF SYSTEMS CONSTITUTIONAL: ANY RECENT FEVER NO . CHILLS NO . WEIGHT CHANGE OF UNKNOWN REASONS NO . GASTROENTEROLOGY: NEW UNEXPLAINABLE CHANGES IN BOWEL CONTROL NO . CONSTIPATION NO . GENITOURINARY: ANY NEW CHANGE IN BLADDER CONTROL? NO . NEUROLOGY: NEW ONSET DIZZINESS OR NEUROLOGICAL CHANGES NOT MENTIONED NO . NEW NUMBNESS OR PAIN PATTERNS NOT MENTIONED AND PERTINENT TO TODAY'S VISIT NO . CARDIOLOGY: NEW CHEST PRESSURE NO . PATIENT DENIES NO . RESPIRATORY: UNEXPLAINABLE COUGH NO . NEW SHORTNESS OF BREATH NO . VITAL SIGNS WT 182.4 LBS, HT 60 IN, BMI 35.62 INDEX, BP 174/77 MM HG, REPEAT BP 138/82 MANUAL, HR 84 /MIN, RR 18 /MIN, TEMP 99.3 F, OXYGEN SAT % 96%, SAFE IN ENV? (Y/N) YES, REVIEWED BY: JACK BP RETAKEN. ESTEBAN COTTON MA. EXAMINATION GENERAL EXAMINATION: GENERALNO ACUTE DISTRESS, WELL NOURISHED AND HYDRATED. PSYCHAPPROPRIATE MOOD AND AFFECT . LUNGS:CLEAR TO AUSCULTATION BILATERALLY, NO WHEEZES, RHONCHI, RALES. HEART:NO MURMURS, REGULAR RATE AND RHYTHM. LUMBAR:SPECIFIC FACET TENDERNESS RIGHT L3-4,L4-5,L5-S1. PAIN IS AGGRAVATED BY EXTENSION OF SPINE AND FACET LOADING . DIAGNOSTIC TESTS REVIEWED MRI L/S SPINE 07/2020. ASSESSMENTS SPONDYLOSIS OF LUMBAR REGION WITHOUT MYELOPATHY OR RADICULOPATHY - M47.816 (PRIMARY) TREATMENT SPONDYLOSIS OF LUMBAR REGION WITHOUT MYELOPATHY OR RADICULOPATHY NOTES: RIGHT DIAGNOSTIC LUMBAR FACET BLOCK L3-4,L4-5,L5-S1. CLINICAL NOTES: PREPROCEDURE AND PROCEDURE INFORMATION PRINTED AND PROVIDED TO PATIENT. PATIENT VERBALIZED AN UNDERSTANDING. ESTEBAN COTTON MA. PROCEDURE CODES [id number] ESTABILISHED PATIENT [facility] CHARGE DISPOSITION & COMMUNICATION FOLLOW UP POST (REASON: RIGHT DIAGNOSTIC LUMBAR FACET BLOCK L3-4,L4-5,L5-S1) ELECTRONICALLY SIGNED BY HEATHER KOROMA ON 02/16/2021 AT 08:55 AM EDT DISCLAIMER : THIS IS A VISIT SUMMARY EXTRACTED FROM THE [employer] CHART. IT IS NOT A COPY OF THE [employer] PROGRESS NOTE. MARLINE
== END ==
LOC: M PAIN 10:45
PROVIDERS: ATTEND Nurse Practitioner Family
DX: M47.816 Spondylosis without myelopathy or radiculopathy, lumbar region (principal); I10 Essential (primary) hypertension; K21.9 Gastro-esophageal reflux disease without esophagitis; D64.9 Anemia, unspecified; E11.9 Type 2 diabetes mellitus without complications; H35.30 Unspecified macular degeneration; Z98.41 Cataract extraction status, right eye; Z98.42 Cataract extraction status, left eye; Z79.84 Long term (current) use of oral hypoglycemic drugs; Z79.899 Other long term (current) drug therapy; Z88.0 Allergy status to penicillin; Z88.1 Allergy status to other antibiotic agents; Z88.2 Allergy status to sulfonamides; Z88.5 Allergy status to narcotic agent; Z88.8 Allergy status to other drugs, medicaments and biological substances; Z91.040 Latex allergy status; Z91.041 Radiographic dye allergy status

== ENCOUNTER → 2021-05-12 | Outpatient (CLI) | payer MEDICARE ==
[~2021-05-12] MED LIST changes: -ALEN35TA54 PO; +ALEN35TA56 PO; -LISI2.5T2 PO; +LISI2.5T9 PO
== END ==
LOC: M LABSMTC 09:48
PROVIDERS: ATTEND Anesthesiology
DX: Z20.822 Contact with and (suspected) exposure to COVID-19 (principal)

== ENCOUNTER → 2021-05-17 | Outpatient (CLI) | payer MEDICARE ==
[~2021-05-17] MED LIST changes: +BUPIVACAINE HCL 0.25% 30ML VIAL As Ordered ONE; +ISOVUE-M 300 61% 15ML VIAL As Ordered ONE; +LIDOCAINE 1% SDV 30ML VIAL As Ordered ONE; +diphenhydrAMINE 25MG CAP As Ordered ONE
== END ==
LOC: M PAIN 08:30
PROVIDERS: ATTEND Anesthesiology
DX: M47.816 Spondylosis without myelopathy or radiculopathy, lumbar region (principal); I10 Essential (primary) hypertension; K21.9 Gastro-esophageal reflux disease without esophagitis; D64.9 Anemia, unspecified; E11.9 Type 2 diabetes mellitus without complications; H35.30 Unspecified macular degeneration; Z98.41 Cataract extraction status, right eye; Z98.42 Cataract extraction status, left eye; Z79.84 Long term (current) use of oral hypoglycemic drugs; Z79.899 Other long term (current) drug therapy; Z79.82 Long term (current) use of aspirin; Z80.0 Family history of malignant neoplasm of digestive organs; Z88.2 Allergy status to sulfonamides; Z88.1 Allergy status to other antibiotic agents; Z88.5 Allergy status to narcotic agent; Z88.8 Allergy status to other drugs, medicaments and biological substances; Z91.040 Latex allergy status; Z91.041 Radiographic dye allergy status
CPT/HCPCS: 64493; 64494; 64495; Q9967

== ENCOUNTER → 2021-05-28 | Outpatient (CLI) | payer MEDICARE ==
[~2021-05-28] MED LIST changes: -BUPIVACAINE HCL 0.25% 30ML VIAL As Ordered ONE; -ISOVUE-M 300 61% 15ML VIAL As Ordered ONE; -LIDOCAINE 1% SDV 30ML VIAL As Ordered ONE; -diphenhydrAMINE 25MG CAP As Ordered ONE
== END ==
LOC: M PAIN 10:30
PROVIDERS: ATTEND Anesthesiology
DX: G89.29 Other chronic pain (principal); M47.816 Spondylosis without myelopathy or radiculopathy, lumbar region; I10 Essential (primary) hypertension; K21.9 Gastro-esophageal reflux disease without esophagitis; D64.9 Anemia, unspecified; E11.9 Type 2 diabetes mellitus without complications; Z79.82 Long term (current) use of aspirin; Z79.84 Long term (current) use of oral hypoglycemic drugs; Z79.899 Other long term (current) drug therapy; Z88.0 Allergy status to penicillin; Z88.2 Allergy status to sulfonamides; Z88.1 Allergy status to other antibiotic agents; Z88.5 Allergy status to narcotic agent; Z88.8 Allergy status to other drugs, medicaments and biological substances; Z91.041 Radiographic dye allergy status; Z91.040 Latex allergy status

== ENCOUNTER → 2021-07-01 | Outpatient (CLI) | payer MEDICARE | LOC: M LABSMTC 11:16 | PROVIDERS: ATTEND Anesthesiology | DX: Z01.812 Encounter for preprocedural laboratory examination (principal); Z20.822 Contact with and (suspected) exposure to COVID-19 ==

== ENCOUNTER → 2021-07-06 | Outpatient (CLI) | payer MEDICARE ==
[~2021-07-06] MED LIST changes: +BUPIVACAINE HCL 0.25% 30ML VIAL As Ordered ONE; +LIDOCAINE 1% SDV 30ML VIAL As Ordered ONE
--- NOTE | 2021-07-06 14:48 | REP ---
INDICATION: RIGHT DIAGNOSTIC LUMBAR FACET BLOCK L3-L4, L4-L5, L5. COMPARISON: 05/17/2021. TECHNIQUE: Two views lower lumbar spine. FINDINGS: Coyote are seen along the lower lumbar spine. There is posterior fusion hardware present. IMPRESSION: 42 seconds fluoroscopy time utilized. <Electronically signed by Phoenix Mera > 07/06/21 [id number]
== END ==
LOC: M PAIN 10:00
PROVIDERS: ATTEND Anesthesiology
DX: M47.817 Spondylosis without myelopathy or radiculopathy, lumbosacral region (principal); Z79.899 Other long term (current) drug therapy; Z79.84 Long term (current) use of oral hypoglycemic drugs; Z79.82 Long term (current) use of aspirin; N18.9 Chronic kidney disease, unspecified; E11.22 Type 2 diabetes mellitus with diabetic chronic kidney disease

== ENCOUNTER → 2021-08-11 | Outpatient (CLI) | payer MEDICARE ==
[~2021-08-11] MED LIST changes: -BUPIVACAINE HCL 0.25% 30ML VIAL As Ordered ONE; -LIDOCAINE 1% SDV 30ML VIAL As Ordered ONE
== END ==
LOC: M PAIN 11:45
PROVIDERS: ATTEND Anesthesiology
DX: M47.816 Spondylosis without myelopathy or radiculopathy, lumbar region (principal); I10 Essential (primary) hypertension; K21.9 Gastro-esophageal reflux disease without esophagitis; D64.9 Anemia, unspecified; E11.9 Type 2 diabetes mellitus without complications; H35.30 Unspecified macular degeneration; Z98.41 Cataract extraction status, right eye; Z98.42 Cataract extraction status, left eye; Z79.84 Long term (current) use of oral hypoglycemic drugs; Z79.82 Long term (current) use of aspirin; Z79.899 Other long term (current) drug therapy; Z88.0 Allergy status to penicillin; Z88.1 Allergy status to other antibiotic agents; Z88.2 Allergy status to sulfonamides; Z88.5 Allergy status to narcotic agent; Z88.8 Allergy status to other drugs, medicaments and biological substances; Z91.040 Latex allergy status

== ENCOUNTER → 2021-12-29 | Outpatient (CLI) | payer MEDICARE | LOC: M LABSMTC 09:57 | PROVIDERS: ATTEND Anesthesiology | DX: Z11.52 Encounter for screening for COVID-19 (principal) ==

== ENCOUNTER → 2022-03-22 | Outpatient (CLI) | payer MEDICARE ==
[~2022-03-22] MED LIST changes: +METHACHOLINE KIT (J7674) INH ONE
== END ==
LOC: M CARPUL 09:33
PROVIDERS: ATTEND Nurse Practitioner Adult Health
DX: R94.2 Abnormal results of pulmonary function studies (principal); R06.02 Shortness of breath
CPT/HCPCS: 94070; 95070; J7674

== ENCOUNTER → 2022-07-07 | Outpatient (CLI) | payer MEDICARE ==
[~2022-07-07] MED LIST changes: -METHACHOLINE KIT (J7674) INH ONE
== END ==
LOC: M LABSMTC 11:17
PROVIDERS: ATTEND Anesthesiology
DX: Z01.812 Encounter for preprocedural laboratory examination (principal); Z20.822 Contact with and (suspected) exposure to COVID-19

== ENCOUNTER → 2022-07-11 | Outpatient (CLI) | payer MEDICARE ==
[~2022-07-11] MED LIST changes: +BUPIVACAINE HCL 0.25% 30ML VIAL As Ordered ONE; +LIDOCAINE 1% SDV 30ML VIAL As Ordered ONE; +dexameTHASONE 10MG/1ML VIAL PRES.FREE (J1100 PER 1MG) As Ordered ONE
== END ==
LOC: M PAIN 14:00
PROVIDERS: ATTEND Anesthesiology
DX: M47.817 Spondylosis without myelopathy or radiculopathy, lumbosacral region (principal); I10 Essential (primary) hypertension; K21.9 Gastro-esophageal reflux disease without esophagitis; Z98.41 Cataract extraction status, right eye; Z98.42 Cataract extraction status, left eye; D64.9 Anemia, unspecified; E11.9 Type 2 diabetes mellitus without complications; H35.30 Unspecified macular degeneration; Z90.49 Acquired absence of other specified parts of digestive tract; Z79.84 Long term (current) use of oral hypoglycemic drugs; Z79.82 Long term (current) use of aspirin; Z79.899 Other long term (current) drug therapy
CPT/HCPCS: 64635; J1100

== ENCOUNTER → 2022-07-25 | Outpatient (CLI) | payer MEDICARE ==
[~2022-07-25] MED LIST changes: -BUPIVACAINE HCL 0.25% 30ML VIAL As Ordered ONE; -LIDOCAINE 1% SDV 30ML VIAL As Ordered ONE; -dexameTHASONE 10MG/1ML VIAL PRES.FREE (J1100 PER 1MG) As Ordered ONE
== END ==
LOC: M PAIN 13:45
PROVIDERS: ATTEND Anesthesiology
DX: M47.816 Spondylosis without myelopathy or radiculopathy, lumbar region (principal); G89.29 Other chronic pain; E11.9 Type 2 diabetes mellitus without complications; I10 Essential (primary) hypertension; K21.9 Gastro-esophageal reflux disease without esophagitis; Z88.0 Allergy status to penicillin; Z88.1 Allergy status to other antibiotic agents; Z88.2 Allergy status to sulfonamides; Z88.5 Allergy status to narcotic agent; Z88.8 Allergy status to other drugs, medicaments and biological substances; Z91.040 Latex allergy status; Z91.041 Radiographic dye allergy status; Z79.51 Long term (current) use of inhaled steroids; Z79.82 Long term (current) use of aspirin; Z79.84 Long term (current) use of oral hypoglycemic drugs; Z79.899 Other long term (current) drug therapy

== ENCOUNTER → 2022-10-11 | Outpatient (CLI) | payer OTHER | LOC: M PAIN 09:30 | PROVIDERS: ATTEND Anesthesiology | DX: M79.10 Myalgia, unspecified site (principal); M96.1 Postlaminectomy syndrome, not elsewhere classified; G89.29 Other chronic pain; E11.9 Type 2 diabetes mellitus without complications; I10 Essential (primary) hypertension; K21.9 Gastro-esophageal reflux disease without esophagitis; Z88.0 Allergy status to penicillin; Z88.1 Allergy status to other antibiotic agents; Z88.2 Allergy status to sulfonamides; Z88.5 Allergy status to narcotic agent; Z88.8 Allergy status to other drugs, medicaments and biological substances; Z91.040 Latex allergy status; Z91.041 Radiographic dye allergy status; Z79.51 Long term (current) use of inhaled steroids; Z79.82 Long term (current) use of aspirin; Z79.84 Long term (current) use of oral hypoglycemic drugs; Z79.899 Other long term (current) drug therapy | CPT/HCPCS: 76000; G0463 ==

== ENCOUNTER → 2022-11-02 | Outpatient (CLI) | payer OTHER | LOC: M LABSMTC 09:46 | PROVIDERS: ATTEND Anesthesiology | DX: Z01.812 Encounter for preprocedural laboratory examination (principal) ==

== ENCOUNTER → 2022-11-03 | Outpatient (CLI) | payer OTHER ==
[~2022-11-03] MED LIST changes: +BUPIVACAINE HCL 0.25% 10ML VIAL As Ordered ONE; +BUPIVACAINE HCL 0.25% 30ML VIAL As Ordered ONE; +TRIAMCINOLONE ACETONIDE SUSP 40MG/ML 1ML VIAL As Ordered ONE
== END ==
LOC: M PAIN 16:15
PROVIDERS: ATTEND Anesthesiology
DX: G89.29 Other chronic pain (principal); M79.18 Myalgia, other site; M54.50 Low back pain, unspecified; I10 Essential (primary) hypertension; K21.9 Gastro-esophageal reflux disease without esophagitis; D64.9 Anemia, unspecified; E11.9 Type 2 diabetes mellitus without complications; J45.909 Unspecified asthma, uncomplicated; Z79.82 Long term (current) use of aspirin; Z79.84 Long term (current) use of oral hypoglycemic drugs; Z79.899 Other long term (current) drug therapy; Z88.0 Allergy status to penicillin; Z88.2 Allergy status to sulfonamides; Z88.1 Allergy status to other antibiotic agents; Z88.5 Allergy status to narcotic agent; Z91.040 Latex allergy status; Z91.041 Radiographic dye allergy status

== ENCOUNTER → 2022-12-08 | Outpatient (CLI) | payer OTHER ==
[~2022-12-08] MED LIST changes: -BUPIVACAINE HCL 0.25% 10ML VIAL As Ordered ONE; -BUPIVACAINE HCL 0.25% 30ML VIAL As Ordered ONE; -TRIAMCINOLONE ACETONIDE SUSP 40MG/ML 1ML VIAL As Ordered ONE
== END ==
LOC: M PAIN 10:30
PROVIDERS: ATTEND Nurse Practitioner Family
DX: M96.1 Postlaminectomy syndrome, not elsewhere classified (principal); G89.29 Other chronic pain; E11.9 Type 2 diabetes mellitus without complications; G47.30 Sleep apnea, unspecified; I10 Essential (primary) hypertension; Z88.0 Allergy status to penicillin; Z88.1 Allergy status to other antibiotic agents; Z88.2 Allergy status to sulfonamides; Z88.5 Allergy status to narcotic agent; Z88.8 Allergy status to other drugs, medicaments and biological substances; Z91.040 Latex allergy status; Z91.041 Radiographic dye allergy status; Z79.51 Long term (current) use of inhaled steroids; Z79.82 Long term (current) use of aspirin; Z79.84 Long term (current) use of oral hypoglycemic drugs; Z79.899 Other long term (current) drug therapy

== ENCOUNTER → 2023-01-10 | Outpatient (CLI) | payer OTHER | LOC: M PAIN 11:15 | PROVIDERS: ATTEND Nurse Practitioner Family | DX: M96.1 Postlaminectomy syndrome, not elsewhere classified (principal); M51.16 Intervertebral disc disorders with radiculopathy, lumbar region; I10 Essential (primary) hypertension; K21.9 Gastro-esophageal reflux disease without esophagitis; D64.9 Anemia, unspecified; E11.9 Type 2 diabetes mellitus without complications; H35.30 Unspecified macular degeneration; Z79.82 Long term (current) use of aspirin; Z79.84 Long term (current) use of oral hypoglycemic drugs; Z79.899 Other long term (current) drug therapy; Z88.0 Allergy status to penicillin; Z88.1 Allergy status to other antibiotic agents; Z88.2 Allergy status to sulfonamides; Z88.5 Allergy status to narcotic agent; Z91.040 Latex allergy status; Z91.041 Radiographic dye allergy status ==

== ENCOUNTER → 2023-03-03 | Outpatient (CLI) | payer OTHER ==
[~2023-03-03] MED LIST changes: +LIDOCAINE 1% SDV 30ML VIAL As Ordered ONE; +methylPREDNISolone SUSP 40MG/ML 1ML VIAL (DEPO MEDROL) As Ordered ONE
== END ==
LOC: M PAIN 08:15
PROVIDERS: ATTEND Anesthesiology
DX: M51.16 Intervertebral disc disorders with radiculopathy, lumbar region (principal); G89.29 Other chronic pain; E11.9 Type 2 diabetes mellitus without complications; G47.30 Sleep apnea, unspecified; I10 Essential (primary) hypertension; K21.9 Gastro-esophageal reflux disease without esophagitis; J45.909 Unspecified asthma, uncomplicated; Z88.0 Allergy status to penicillin; Z88.1 Allergy status to other antibiotic agents; Z88.2 Allergy status to sulfonamides; Z88.5 Allergy status to narcotic agent; Z88.8 Allergy status to other drugs, medicaments and biological substances; Z91.040 Latex allergy status; Z91.041 Radiographic dye allergy status; Z79.51 Long term (current) use of inhaled steroids; Z79.82 Long term (current) use of aspirin; Z79.84 Long term (current) use of oral hypoglycemic drugs; Z79.899 Other long term (current) drug therapy
CPT/HCPCS: 62323; J1030

== ENCOUNTER → 2023-04-10 | Outpatient (CLI) | payer OTHER ==
[~2023-04-10] MED LIST changes: -LIDOCAINE 1% SDV 30ML VIAL As Ordered ONE; -methylPREDNISolone SUSP 40MG/ML 1ML VIAL (DEPO MEDROL) As Ordered ONE
== END ==
LOC: M PAIN 10:15
PROVIDERS: ATTEND Nurse Practitioner Family
DX: M47.816 Spondylosis without myelopathy or radiculopathy, lumbar region (principal); G89.29 Other chronic pain; M47.817 Spondylosis without myelopathy or radiculopathy, lumbosacral region; I10 Essential (primary) hypertension; G47.30 Sleep apnea, unspecified; K21.9 Gastro-esophageal reflux disease without esophagitis; D64.9 Anemia, unspecified; E11.9 Type 2 diabetes mellitus without complications; H35.30 Unspecified macular degeneration; Z79.82 Long term (current) use of aspirin; Z79.84 Long term (current) use of oral hypoglycemic drugs; Z79.899 Other long term (current) drug therapy; Z88.0 Allergy status to penicillin; Z88.1 Allergy status to other antibiotic agents; Z88.2 Allergy status to sulfonamides; Z88.5 Allergy status to narcotic agent; Z88.8 Allergy status to other drugs, medicaments and biological substances; Z91.040 Latex allergy status; Z91.041 Radiographic dye allergy status

== ENCOUNTER → 2023-06-08 | Outpatient (CLI) | payer OTHER ==
[~2023-06-08] MED LIST changes: +ISOVUE-M 300 61% 15ML VIAL As Ordered ONE; +LIDOCAINE 1% SDV 30ML VIAL As Ordered ONE
== END ==
LOC: M PAIN 10:15
PROVIDERS: ATTEND Anesthesiology
DX: M46.86 Other specified inflammatory spondylopathies, lumbar region (principal); M54.50 Low back pain, unspecified; G89.29 Other chronic pain; N18.30 Chronic kidney disease, stage 3 unspecified; I12.9 Hypertensive chronic kidney disease with stage 1 through stage 4 chronic kidney disease, or unspecified chronic kidney disease; K21.9 Gastro-esophageal reflux disease without esophagitis; D64.9 Anemia, unspecified; E11.22 Type 2 diabetes mellitus with diabetic chronic kidney disease; H35.30 Unspecified macular degeneration; J45.909 Unspecified asthma, uncomplicated; Z79.4 Long term (current) use of insulin; Z79.899 Other long term (current) drug therapy; Z79.82 Long term (current) use of aspirin; Z88.0 Allergy status to penicillin; Z88.2 Allergy status to sulfonamides; Z88.5 Allergy status to narcotic agent; Z88.1 Allergy status to other antibiotic agents; Z88.8 Allergy status to other drugs, medicaments and biological substances; M47.816 Spondylosis without myelopathy or radiculopathy, lumbar region; M47.817 Spondylosis without myelopathy or radiculopathy, lumbosacral region
CPT/HCPCS: 64493; 64494; J0665

== ENCOUNTER → 2023-06-29 | Outpatient (CLI) | payer OTHER ==
[~2023-06-29] MED LIST changes: -ISOVUE-M 300 61% 15ML VIAL As Ordered ONE; -LIDOCAINE 1% SDV 30ML VIAL As Ordered ONE
== END ==
LOC: M PAIN 15:00
PROVIDERS: ATTEND Anesthesiology
DX: M96.1 Postlaminectomy syndrome, not elsewhere classified (principal); M79.18 Myalgia, other site; M54.50 Low back pain, unspecified; G89.29 Other chronic pain; I10 Essential (primary) hypertension; G47.30 Sleep apnea, unspecified; H26.9 Unspecified cataract; D64.9 Anemia, unspecified; E11.9 Type 2 diabetes mellitus without complications; H35.30 Unspecified macular degeneration; J45.909 Unspecified asthma, uncomplicated; M19.031 Primary osteoarthritis, right wrist; Z79.4 Long term (current) use of insulin; Z79.899 Other long term (current) drug therapy; Z88.0 Allergy status to penicillin; Z88.2 Allergy status to sulfonamides; Z88.1 Allergy status to other antibiotic agents; Z88.5 Allergy status to narcotic agent; Z88.8 Allergy status to other drugs, medicaments and biological substances; Z91.040 Latex allergy status; Z91.041 Radiographic dye allergy status

== ENCOUNTER → 2023-08-18 | Outpatient (CLI) | payer OTHER ==
[~2023-08-18] MED LIST changes: +TRIAMCINOLONE ACETONIDE SUSP 40MG/ML 1ML VIAL As Ordered ONE
== END ==
LOC: M PAIN 08:15
PROVIDERS: ATTEND Anesthesiology
DX: M79.18 Myalgia, other site (principal); G89.29 Other chronic pain; Z88.0 Allergy status to penicillin; Z88.1 Allergy status to other antibiotic agents; Z88.2 Allergy status to sulfonamides; Z88.5 Allergy status to narcotic agent; Z88.8 Allergy status to other drugs, medicaments and biological substances; Z91.040 Latex allergy status; Z91.041 Radiographic dye allergy status; Z97.4 Presence of external hearing-aid; Z79.82 Long term (current) use of aspirin; Z79.84 Long term (current) use of oral hypoglycemic drugs; Z79.85 Long-term (current) use of injectable non-insulin antidiabetic drugs; Z79.899 Other long term (current) drug therapy
CPT/HCPCS: 20552; J0665; J3301

== ENCOUNTER → 2023-09-29 | Outpatient (CLI) | payer OTHER ==
[~2023-09-29] MED LIST changes: -TRIAMCINOLONE ACETONIDE SUSP 40MG/ML 1ML VIAL As Ordered ONE
== END ==
LOC: M PAIN 11:45
PROVIDERS: ATTEND Nurse Practitioner Family
DX: M47.816 Spondylosis without myelopathy or radiculopathy, lumbar region (principal); M47.817 Spondylosis without myelopathy or radiculopathy, lumbosacral region; G89.29 Other chronic pain; I10 Essential (primary) hypertension; G47.30 Sleep apnea, unspecified; K21.9 Gastro-esophageal reflux disease without esophagitis; D64.9 Anemia, unspecified; E11.9 Type 2 diabetes mellitus without complications; J45.909 Unspecified asthma, uncomplicated; Z79.4 Long term (current) use of insulin; Z79.82 Long term (current) use of aspirin; Z79.899 Other long term (current) drug therapy; Z88.0 Allergy status to penicillin; Z88.2 Allergy status to sulfonamides; Z88.5 Allergy status to narcotic agent; Z88.1 Allergy status to other antibiotic agents; Z88.8 Allergy status to other drugs, medicaments and biological substances; Z91.040 Latex allergy status

== ENCOUNTER → 2023-10-31 | Outpatient (CLI) | payer OTHER ==
[~2023-10-31] MED LIST changes: +ISOVUE-M 300 61% 15ML VIAL As Ordered ONE; +LIDOCAINE 1% SDV 30ML VIAL As Ordered ONE; +TRIAMCINOLONE ACETONIDE SUSP 40MG/ML 1ML VIAL As Ordered ONE; +diphenhydrAMINE 25MG CAP As Ordered ONE
== END ==
LOC: M PAIN 11:00
PROVIDERS: ATTEND Anesthesiology
DX: M47.816 Spondylosis without myelopathy or radiculopathy, lumbar region (principal); G89.29 Other chronic pain; M54.50 Low back pain, unspecified; I10 Essential (primary) hypertension; G47.30 Sleep apnea, unspecified; K21.9 Gastro-esophageal reflux disease without esophagitis; D64.9 Anemia, unspecified; E11.9 Type 2 diabetes mellitus without complications; J45.909 Unspecified asthma, uncomplicated; M19.032 Primary osteoarthritis, left wrist; Z79.4 Long term (current) use of insulin; Z79.899 Other long term (current) drug therapy; Z88.0 Allergy status to penicillin; Z88.2 Allergy status to sulfonamides; Z88.1 Allergy status to other antibiotic agents; Z88.5 Allergy status to narcotic agent; Z88.8 Allergy status to other drugs, medicaments and biological substances; Z91.040 Latex allergy status; Z91.041 Radiographic dye allergy status
CPT/HCPCS: 64493; 64494; J0665; J3301; Q9967

== ENCOUNTER → 2023-12-29 | Outpatient (CLI) | payer OTHER ==
[~2023-12-29] MED LIST changes: -ISOVUE-M 300 61% 15ML VIAL As Ordered ONE; -LIDOCAINE 1% SDV 30ML VIAL As Ordered ONE; -TRIAMCINOLONE ACETONIDE SUSP 40MG/ML 1ML VIAL As Ordered ONE; -diphenhydrAMINE 25MG CAP As Ordered ONE
== END ==
LOC: M PAIN 10:00
PROVIDERS: ATTEND Nurse Practitioner Family
DX: M47.816 Spondylosis without myelopathy or radiculopathy, lumbar region (principal); G89.29 Other chronic pain; I10 Essential (primary) hypertension; G47.30 Sleep apnea, unspecified; K21.9 Gastro-esophageal reflux disease without esophagitis; D64.9 Anemia, unspecified; E11.9 Type 2 diabetes mellitus without complications; H35.30 Unspecified macular degeneration; J45.909 Unspecified asthma, uncomplicated; M19.032 Primary osteoarthritis, left wrist; Z79.4 Long term (current) use of insulin; Z79.82 Long term (current) use of aspirin; Z79.899 Other long term (current) drug therapy; Z88.0 Allergy status to penicillin; Z88.1 Allergy status to other antibiotic agents; Z88.2 Allergy status to sulfonamides; Z88.5 Allergy status to narcotic agent; Z88.8 Allergy status to other drugs, medicaments and biological substances; Z91.040 Latex allergy status; Z91.041 Radiographic dye allergy status

== ENCOUNTER → 2024-01-19 | Outpatient (REF) | payer OTHER ==
[2024-01-19 18:14] LABS: PERCENT SATURATION 13.4 % (13.2-45.0)
[2024-01-19 18:17] LABS: FERRITIN 74.7 NG/ML (7.3-270.7)
== END ==
LOC: M LAB REF 17:13
PROVIDERS: ATTEND Nurse Practitioner Family
DX: D50.9 Iron deficiency anemia, unspecified (principal)

== ENCOUNTER → 2024-04-10 | Outpatient (CLI) | payer OTHER | LOC: M PAIN 10:15 | PROVIDERS: ATTEND Anesthesiology | DX: M51.16 Intervertebral disc disorders with radiculopathy, lumbar region (principal); M96.1 Postlaminectomy syndrome, not elsewhere classified; G89.29 Other chronic pain; I10 Essential (primary) hypertension; G47.30 Sleep apnea, unspecified; K21.9 Gastro-esophageal reflux disease without esophagitis; D64.9 Anemia, unspecified; E11.9 Type 2 diabetes mellitus without complications; H35.30 Unspecified macular degeneration; J45.909 Unspecified asthma, uncomplicated; Z79.4 Long term (current) use of insulin; Z79.82 Long term (current) use of aspirin; Z79.899 Other long term (current) drug therapy; Z88.0 Allergy status to penicillin; Z88.2 Allergy status to sulfonamides; Z88.5 Allergy status to narcotic agent; Z88.8 Allergy status to other drugs, medicaments and biological substances; Z91.040 Latex allergy status ==

== ENCOUNTER → 2024-06-07 | Outpatient (CLI) | payer OTHER ==
[~2024-06-07] MED LIST changes: +ISOVUE-M 300 61% 15ML VIAL As Ordered ONE; +LIDOCAINE 1% SDV 30ML VIAL As Ordered ONE; +dexAMETHasone 10MG/1ML VIAL PRES.FREE As Ordered ONE; +diphenhydrAMINE 25MG CAP As Ordered ONE
== END ==
LOC: M PAIN 08:15
PROVIDERS: ATTEND Anesthesiology
DX: M96.1 Postlaminectomy syndrome, not elsewhere classified (principal); G89.29 Other chronic pain; I10 Essential (primary) hypertension; G47.30 Sleep apnea, unspecified; K21.9 Gastro-esophageal reflux disease without esophagitis; D64.9 Anemia, unspecified; E11.9 Type 2 diabetes mellitus without complications; H35.30 Unspecified macular degeneration; J45.909 Unspecified asthma, uncomplicated; Z79.4 Long term (current) use of insulin; Z79.82 Long term (current) use of aspirin; Z79.899 Other long term (current) drug therapy; Z88.0 Allergy status to penicillin; Z88.2 Allergy status to sulfonamides; Z88.1 Allergy status to other antibiotic agents; Z88.5 Allergy status to narcotic agent; Z88.8 Allergy status to other drugs, medicaments and biological substances; Z91.040 Latex allergy status
CPT/HCPCS: 62323; J1100; Q9967

== ENCOUNTER → 2024-07-11 | Outpatient (CLI) | payer OTHER ==
[~2024-07-11] MED LIST changes: -ISOVUE-M 300 61% 15ML VIAL As Ordered ONE; -LIDOCAINE 1% SDV 30ML VIAL As Ordered ONE; -dexAMETHasone 10MG/1ML VIAL PRES.FREE As Ordered ONE; -diphenhydrAMINE 25MG CAP As Ordered ONE
== END ==
LOC: M PAIN 10:45
PROVIDERS: ATTEND Nurse Practitioner Family
DX: M47.816 Spondylosis without myelopathy or radiculopathy, lumbar region (principal); M47.817 Spondylosis without myelopathy or radiculopathy, lumbosacral region; M96.1 Postlaminectomy syndrome, not elsewhere classified; G89.29 Other chronic pain; I10 Essential (primary) hypertension; G47.30 Sleep apnea, unspecified; K21.9 Gastro-esophageal reflux disease without esophagitis; D64.9 Anemia, unspecified; I11.9 Hypertensive heart disease without heart failure; H35.30 Unspecified macular degeneration; J45.909 Unspecified asthma, uncomplicated; Z79.82 Long term (current) use of aspirin; Z79.84 Long term (current) use of oral hypoglycemic drugs; Z79.899 Other long term (current) drug therapy; Z88.0 Allergy status to penicillin; Z88.1 Allergy status to other antibiotic agents; Z88.5 Allergy status to narcotic agent; Z88.8 Allergy status to other drugs, medicaments and biological substances; Z91.040 Latex allergy status; Z91.041 Radiographic dye allergy status

== ENCOUNTER → 2024-09-20 | Outpatient (CLI) | payer MEDICARE, OTHER ==
[~2024-09-20] MED LIST changes: +ISOVUE-M 300 61% 15ML VIAL As Ordered ONE; +LIDOCAINE 1% SDV 30ML VIAL As Ordered ONE; +TRIAMCINOLONE ACETONIDE SUSP 40MG/ML 1ML VIAL As Ordered ONE; +diphenhydrAMINE 25MG CAP As Ordered ONE
== END ==
LOC: M PAIN 08:00
PROVIDERS: ATTEND Anesthesiology
DX: M47.816 Spondylosis without myelopathy or radiculopathy, lumbar region (principal); G89.29 Other chronic pain; M54.50 Low back pain, unspecified; I10 Essential (primary) hypertension; K21.9 Gastro-esophageal reflux disease without esophagitis; E11.9 Type 2 diabetes mellitus without complications; Z88.0 Allergy status to penicillin; Z88.1 Allergy status to other antibiotic agents; Z88.2 Allergy status to sulfonamides; Z88.8 Allergy status to other drugs, medicaments and biological substances; Z91.040 Latex allergy status; Z91.041 Radiographic dye allergy status; Z79.4 Long term (current) use of insulin; Z79.82 Long term (current) use of aspirin; Z79.899 Other long term (current) drug therapy
CPT/HCPCS: 64493; 64494; J0665; J3301; Q9967

== ENCOUNTER → 2024-10-28 | Outpatient (CLI) | payer OTHER ==
[~2024-10-28] MED LIST changes: -ISOVUE-M 300 61% 15ML VIAL As Ordered ONE; -LIDOCAINE 1% SDV 30ML VIAL As Ordered ONE; -TRIAMCINOLONE ACETONIDE SUSP 40MG/ML 1ML VIAL As Ordered ONE; -diphenhydrAMINE 25MG CAP As Ordered ONE
== END ==
LOC: M PAIN 13:30
PROVIDERS: ATTEND Nurse Practitioner Family
DX: M96.1 Postlaminectomy syndrome, not elsewhere classified (principal); M47.816 Spondylosis without myelopathy or radiculopathy, lumbar region; M51.16 Intervertebral disc disorders with radiculopathy, lumbar region; G89.29 Other chronic pain; I10 Essential (primary) hypertension; K21.9 Gastro-esophageal reflux disease without esophagitis; E11.9 Type 2 diabetes mellitus without complications; J45.909 Unspecified asthma, uncomplicated; Z79.4 Long term (current) use of insulin; Z79.899 Other long term (current) drug therapy; Z88.0 Allergy status to penicillin; Z88.1 Allergy status to other antibiotic agents; Z88.2 Allergy status to sulfonamides; Z88.5 Allergy status to narcotic agent; Z88.8 Allergy status to other drugs, medicaments and biological substances; Z91.040 Latex allergy status; Z91.041 Radiographic dye allergy status